=== PATIENT | female | born 1955 | race Caucasian/White ===

== ENCOUNTER 2021-04-14 11:31 | Outpatient (CLI) | payer MEDICARE, SELFPAY ==
[2021-04-14 12:20] LABS: Anion Gap 9 mmol/L (8-16); Aspartate Amino Transferase 62 U/L (14-36); Blood Urea Nitrogen 16 mg/dL (7-17); Calcium 10.3 mg/dL (8.4-10.2); Carbon Dioxide 27 mmol/L (22-30); Chloride 104 mmol/L (98-107); Cholesterol 250 mg/dL (0-200); Estimated Glomerular Filt Rate > 60; Glucose 111 mg/dL (65-105); HDL Direct 95 mg/dL; Potassium 5.1 mmol/L (3.4-5.0); Sodium 140 mmol/L (137-145); Triglycerides 148 mg/dL (<150)
[2021-04-14 12:31] LABS: LDL Cholesterol Direct 99 mg/dL
[2021-04-14 14:40] LABS: Hemoglobin A1C 5.6 % (<5.7)
== END 2021-04-14 11:32 | disposition home or self-care (01) ==
PROVIDERS: PCP Family Medicine; Visit Provider Family Medicine
DX: R73.03 Prediabetes (principal); E78.2 Mixed hyperlipidemia; I10 Essential (primary) hypertension
CPT/HCPCS: 36415; 80048; 80061; 83036; 84450

== ENCOUNTER 2022-08-03 09:43 | Outpatient (CLI) | payer MEDICARE, SELFPAY ==
--- NOTE | ~2022-08-03 | MR_ITS ---
EXAMINATION: MR foot LT wo con DATE: 08/03/2022 10:31 INDICATION: Ulcer at the left great toe. Left foot osteomyelitis. TECHNIQUE: Magnetic resonance imaging (MRI) of the left foot was performed without intravenous contra st. COMPARISON: Left foot radiographs 11/24/2008 FINDINGS: Bone alignment is normal. No acute fracture. 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 There is mild osteoarthritis of first metatarsophalangeal joint and some of the interphalangeal joints. There is an ulcer plantar to head of first metatarsal. There is increased T2 -weighted signal intensity in the adjacent soft tissues extending to the bone. There is bone marrow e deb in the lateral sesamoid with erosions, consistent with osteomyelitis. There is severe fatty atro phy of the musculature. Lisfranc ligament is intact. IMPRESSION: 1. Cellulitis plantar to head of first metatarsal with osteomyelitis involving the lateral great toe sesamoid. Reviewed, dictated and finalized at location A.
== END 2022-08-03 09:44 | disposition home or self-care (01) ==
PROVIDERS: PCP Family Medicine
DX: M86.9 Osteomyelitis, unspecified (principal); L03.116 Cellulitis of left lower limb
CPT/HCPCS: 73718

== ENCOUNTER 2022-08-16 09:25 | Outpatient (CLI) | payer MEDICARE, SELFPAY ==
[2022-08-16 11:05] LABS: Anion Gap 12 mmol/L (8-16); Aspartate Amino Transferase 39 U/L (14-36); Blood Urea Nitrogen 14 mg/dL (7-17); Calcium 9.8 mg/dL (8.4-10.2); Carbon Dioxide 22 mmol/L (22-30); Chloride 102 mmol/L (98-107); Cholesterol 165 mg/dL (0-200); Estimated Glomerular Filt Rate > 60; Glucose 104 mg/dL (65-110); HDL Direct 67 mg/dL; Potassium 3.6 mmol/L (3.4-5.0); Sodium 136 mmol/L (137-145); Triglycerides 110 mg/dL (<150)
[2022-08-16 11:17] LABS: LDL Cholesterol Direct 53 mg/dL
[2022-08-16 12:30] LABS: Hemoglobin A1C 5.7 % (<5.7)
== END 2022-08-16 09:26 | disposition home or self-care (01) ==
LOC: ANHLAB 09:31
PROVIDERS: PCP Family Medicine; Visit Provider Family Medicine
DX: I10 Essential (primary) hypertension (principal); E78.2 Mixed hyperlipidemia; R73.03 Prediabetes
CPT/HCPCS: 36415; 80048; 80061; 83036; 84450

== ENCOUNTER 2022-12-22 09:12 | Outpatient (CLI) | payer MEDICARE, SELFPAY ==
[2022-12-22 10:43] LABS: Anion Gap 5 mmol/L (8-16); Blood Urea Nitrogen 15 mg/dL (7-17); Calcium 9.6 mg/dL (8.4-10.2); Carbon Dioxide 30 mmol/L (22-30); Chloride 98 mmol/L (98-107); Estimated Glomerular Filt Rate > 60; Glucose 104 mg/dL (65-110); Potassium 3.9 mmol/L (3.4-5.0); Sodium 133 mmol/L (137-145)
== END 2022-12-22 09:13 | disposition home or self-care (01) ==
LOC: ANHLAB 09:16
PROVIDERS: PCP Emergency Medicine; Visit Provider Emergency Medicine
DX: Z01.818 Encounter for other preprocedural examination (principal)
CPT/HCPCS: 36415; 80048

== ENCOUNTER 2025-04-23 14:45 | Outpatient (CLI) | payer MEDICARE, SELFPAY ==
[2025-04-23 15:23] LABS: Basophils Percent Auto 0.4 % (0.2-1.2); Eosinophils Absolute Auto 0.2 K/mm3 (0-0.3); Eosinophils Percent Auto 2.5 % (0-4.4); Hematocrit 36.6 % (37.0-47.0); Hemoglobin 12.5 g/dL (12.0-15.0); Immature Granulocyte Absolute 0.02 K/mm3 (0.00-0.031); Immature Granulocyte Percent A 0.3 % (0-0.5); Lymphocytes Absolute Auto 2.32 K/mm3 (0.9-3.2); Lymphocytes Percent Auto 34.7 % (18.3-44.2); Mean Corpuscular HGB Conc 34.2 g/dl (32-36); Mean Corpuscular Volume 90.8 fl (80-100); Mean Platelet Volume 9.7 fl (7.4-10.4); Monocytes Absolute Auto 0.6 K/mm3 (0.1-0.6); Monocytes Percent Auto 8.8 % (2.6-8.5); Neutrophils Absolute Auto 3.6 K/mm3 (1.3-6.7); Neutrophils Percent Auto 53.3 % (45.5-73.1); Platelet Count Result 265 k/mm3 (150-375); Red Blood Count 4.03 M/mm3 (4.2-5.4); White Blood Count 6.7 K/mm3 (4.5-10.0)
[2025-04-23 15:36] LABS: Alanine Aminotransferase 30 U/L (6-35); Albumin Level 4.3 g/dL (3.5-5.1); Alkaline Phosphatase 75 U/L (38-126); Anion Gap 7 mmol/L (4-12); Aspartate Amino Transferase 31 U/L (14-36); Bilirubin,Total 0.5 mg/dL (0.2-1.3); Blood Urea Nitrogen 20 mg/dL (7-17); Calcium 9.7 mg/dL (8.4-10.2); Carbon Dioxide 26 mmol/L (22-30); Chloride 101 mmol/L (98-107); Cholesterol 155 mg/dL (0-200); Estimated Glomerular Filt Rate > 60; Glucose 102 mg/dL (65-110); HDL Direct 75 mg/dL; Potassium 3.7 mmol/L (3.4-5.0); Sodium 134 mmol/L (137-145); Triglycerides 119 mg/dL (<150)
[2025-04-23 15:47] LABS: LDL Cholesterol Direct 48 mg/dL
--- OUTSIDE RECORDS SUMMARY | 2025-04-23 17:25 | XMS_ITS | Continuity of Care Document ---
Author Organization [facility] [place] [address] [place] [address] [place] [address] Phone Care Team Providers Care Lead Man Over [employer] Name Role Phone Reynaga OD, Patric Unavailable Unavailable Procedures Procedure Date Eye Exam & Treatment Refraction Office/outpatient Visit, Est Office/outpatient Visit, Est Eye Exam, New Patient Advance Directives Directive Yes / No Effective Date File Name No Information Encounters Encounter Description Practice Location Reason(s) For Visit Diagnoses Date Provider Providers Copied on Encounter [facility], [address] [place] [address] [address], [place], [place], [id number], [place] tel:[phone] [facility] No Information 2-200 8 Reynaga OD Patric. [address] , [address], [place], [address], [place]. tel:[phone] Office/outpat ient Visit, [facility] [place], [address] [place] [address] [address], [place], [place], [id number], [place] tel:[phone] [facility] No Information 1-200 7 Reynaga OD Patric. [address] , [address], [place], [address], [place]. tel:[phone] Office/outpat ient Visit, [facility] [place], [address] [place] [address] [address], [place], [place], [id number], [place] tel:[phone] [facility] No Information Shankar-1 4-200 7 Reynaga OD Patric. [address] , [address], [place], [address], [place]. tel:[phone] [facility], [address], [place], [place], [id number], [place] tel:[phone] [facility] No Information 7 Doisy Edward. [address] , [address], [place], [address], [place]. tel:[phone] Family History Family Member Type Diagnosis Age At Onset No Information Payers Payer name Insurance type Covered libertarian ID Authorroxannedoris delphinebernard(s) [facility] Care [id number] Social History Type Description Quantity Date Captured Comments Sex Female Smoking Status No Information Chief Complaint And Reason For Visit No Information Reason For Referral Reason For Referral No Information History Of Present Illness Encounter Date Complaint History Of Prese nt Illness No Information Functional Status Date Functional Assessmen t No Information Instructions Date Instruction Additional Infor mation No Information Assessments Type Assessment Date No Information Patient Care Teams Name Effective Dates (start - stop) Status Members No Information
--- OUTSIDE RECORDS SUMMARY | 2025-04-23 17:25 | XMS_ITS | Data Portability ---
Author Organization [facility] ROSAAmanda Address [address] [facility] [place] [address] Assessment No assessment recorded. Plan of Treatment Reminders Order Date Submit Date Provider Last Modified By Organization Details Last Modified Time Details Appointments MEDICARE WELLNESS VISIT 2024 02:30P M DAO Whyte Not available Not available Not available Lab lipid panel, serum 2023 024 [employer] [facility], [address], [place], [address], 11/05/2024 22:16:13 HbA1c (hemoglob in A1c), blood 2023 024 DANIEL In-Office Order, Internal Use Only DO Not Attach Compendium DO Not Attach Compendium, Do Not Delete/merge, [id number] 11/04/2024 16:51:48 CBC w/ auto diff 2023 024 [employer] [facility], [address], [place], [address], 11/05/2024 22:16:16 CMP, serum or plasma 2023 024 [employer] [facility], [address], [address], [place], [address], 11/05/2024 22:16:14 hemoglobi n A1c, QN, blood 2023 024 [facility], [address], [address], [place], [address], 05/27/2024 14:11:10 CMP, serum or plasma 2023 024 [facility], [address], [address], [place], [address], 05/08/2024 02:32:00 magnesium , serum or plasma 2023 024 [facility], [address], [address], [place], [address], 05/08/2024 02:32:00 vitamin D, 25-hydrox y, total, serum 2023 024 [facility], [address], [address], [place], [address], 05/08/2024 02:32:01 hemoglobi n A1c, QN, blood 2022 023 [facility], [address], [address], [place], [address], 11/09/2023 13:48:55 CMP, serum or plasma 2022 023 [facility], [address], [address], [place], [address], 11/10/2023 12:32:11 CBC w/ auto diff 2022 023 [facility], [address], [address], [place], [address], 11/10/2023 12:32:11 magnesium , serum or plasma 2022 023 [facility], [address], [address], [place], [address], 11/10/2023 12:32:10 lipid panel, serum 2022 023 [facility], [address], [address], [place], [address], 11/10/2023 12:32:09 vitamin D, 25-hydrox y, total, serum 2022 023 [facility], [address], [address], [place], [address], 11/10/2023 12:32:12 CMP, serum or plasma 2022 023 [facility] (Lab), [address] [facility] [address] [place] [address], [phone], 11/16/2023 16:54:20 CBC w/ auto diff 2022 023 [facility] (Lab), [address] [facility] [address] [place] [address], [id number], 11/16/2023 16:54:20 magnesium , serum or plasma 2022 023 [facility] (Lab), [address] [facility] [address] [place] [address], [id number], 11/16/2023 16:54:20 lipid panel, serum 2022 023 [facility] (Lab), [address] [facility] [address] [place] [address], [phone], 11/16/2023 16:54:20 HbA1c (hemoglob in A1c), blood 2022 023 [facility] (Lab), [address] [facility] [address] [place] [address], [id number], 11/10/2023 12:32:13 BMP, serum or plasma 2022 023 [facility] (Lab), [address] [facility] [address] [place] [address], [phone], 12/22/2022 12:40:47 Referral None recorded. Procedures None recorded. Surgeries None recorded. Imaging DEXA 2022 023 l[facility], [address], [place], [address], 07/10/2023 10:22:41 Medication Orders triamcino lone acetonide 0.1 % topical ointment 2023 025 [facility]armacy [facility]2510, [address] [place], [address], 01/01/2025 16:26:36 prednison e 20 mg tablet [address]/Pharmacy #2510, [address] [place], [address], 01/13/2024 08:26:30 azithromy donna 500 mg tablet [address]/Pharmacy #2510, [address] [place], [address], 01/13/2024 08:26:18 albuterol sulfate HFA 90 mcg/actua tion aerosol inhaler [facility] [address] [place], [address], 05/06/2024 11:59:16 losartan 50 mg-hydroc hlorothia zide 12.5 mg tablet 2022 023 [facility]/Pharmacy #2510, [address] [place], [address], 11/09/2023 13:53:31 Patient TargetsNo targets recorded. Patient Instructions Encounter Date Encounter Id Patient Instructions Last Modified By Organization Details Last Modified Time 12/20/2022 [id number] Parvin, - Thank y goldy for your visit - Continue your current medications - I will complete your preoperative form once I have your lab and electrocardiogram results, and forward it to your surgeon - You will be called with any concerning findings - Return to clinic as scheduled, or as needed - Call with any concerns [email or web address] Not available 12/20/2022 15:22:50 04/17/2023 [id number] back care and preventing injuries: care instructions [email or web address] Not available 04/17/2023 12:08:29 sleep apnea: car e instructions [email or web address] Not available 04/17/2023 12:08:28 high blood press ure: care instructions [id number] Not available 04/17/2023 12:08:29 learning about h igh blood pressure [email or web address] Not available 04/17/2023 12:08:28 body mass index: care instructions [id number] Not available 04/17/2023 12:15:13 learning about healthy weight [id number] Not available 04/17/2023 12:15:13 Parvin, - Thank luis goldy for your visit - Continue your current medications - Have your labwork done at ~ 1 week before your next office visit - Return to clinic in 6 months, AND as needed. - Call with any concerns Immunization recommendations: Preventive immunization against tetanus, diphtheria and pertussis is recommended every 10 years, or after 7 years if sustaining a tetanus-prone wound. Preventive immunization against shingles (herpes zoster) is recommended to reduce risk of occurrence, possible chronic pain, and transmission. Currently this is a two shot regimen. All individuals age 65 and up are encouraged to obtain vaccination against Pneumococcal pneumonia. Currently, this is a single immunization, [id number], if you have never previously been immunized. Yearly influenza immunization is recommended, and typically available beginning in mid-July. I highly encourage all who are able to complete an initial immunization series against COVID19, along with boosters as indicated by age or medical history. Your goal hemoglobin A1c is under 7.0 to prevent long-term diabetes complications (eye , kidney, and nerve damage). Your goal sugars are in the 90-130 range Exercise recommendations: It is recommended that you do daily aerobic (walking, bicycling, swimming) and resistance exercises (light weight lifting, resistance band stretching) for at least 30 minutes, most days of the week. If you cannot walk, chair exercises for 10-15 minutes a day would help tremendously. As little as 15-20 minutes exercise, in one or two sessions a day, is still very helpful to manage/improve your weight and diabetes control. Diet recommendations: Eat small portion meals, trying not to consume more than 1800 calories a day. Try to eat not more than 2 servings of carbs (starches) with your meals. Avoid soft drinks, including regular sodas, fruit juices, and sweetened tea. Drink water instead. Eat plenty of green and leafy vegetables, including salads. Medications: Take your medications regularly. Setting phone alarms can help. Keep your medication on the kitchen dinner table, by the bedside table or by the sink where they are visible to you. [email or web address] Not available 04/17/2023 12:08:25 11/09/2023 [id number] back care and preventing injuries: care instructions [id number] Not available 11/09/2023 13:48:21 upper respirator y infection (cold): care instructions [email or web address] Not available 11/09/2023 13:53:26 sleep apnea: car e instructions [id number] Not available 11/09/2023 13:48:20 learning about h igh blood pressure [email or web address] Not available 11/09/2023 13:48:20 body mass index: care instructions [email or web address] Not available 11/09/2023 13:48:20 learning about healthy weight [id number] Not available 11/09/2023 13:48:20 Parvin, - Thank y goldy for your visit - Use medications as directed. - Drink plenty of fluids - Consider using plain Robitussin, plain Mucinex, or Coricidin HBP for congestion/sinus pressure/ear pain - Please call if not improving in 10-14 days. - Continue your current medications - Your results will be available on the portal with any recommendations, or we will call you with them - Return to clinic in 6 months, AND as needed. - Call with any concerns Immunization recommendations: Preventive immunization against tetanus, diphtheria and pertussis is recommended every 10 years, or after 7 years if sustaining a tetanus-prone wound. Preventive immunization against shingles (herpes zoster) is recommended to reduce risk of occurrence, possible chronic pain, and transmission. Currently this is a two shot regimen. All individuals age 65 and up are encouraged to obtain vaccination against Pneumococcal pneumonia. Currently, this is a single immunization, [id number], if you have never previously been immunized. Yearly influenza immunization is recommended, and typically available beginning in mid-July. I highly encourage all who are able to complete an initial immunization series against COVID19, along with boosters as indicated by age or medical history. Consider obtaining an RSV immunization. For more information: https://www.cdc.gov/v accines/vpd/rsv/index .html Exercise recommendations: It is recommended that you do daily aerobic (walking, bicycling, swimming) and resistance exercises (light weight lifting, resistance band stretching) for at least 30 minutes, most days of the week. If you cannot walk, chair exercises for 10-15 minutes a day would help tremendously. As little as 15-20 minutes exercise, in one or two sessions a day, is still very helpful to manage/improve your weight and overall health Diet recommendations: Eat small portion meals, trying not to consume more than 1800 calories a day. Try to eat not more than 2 servings of carbs (starches) with your meals. Avoid soft drinks, including regular sodas, fruit juices, and sweetened tea. Drink water instead. Eat plenty of green and leafy vegetables, including salads. [email or web address] Not available 11/09/2023 14:03:33 05/06/2024 [id number] back care and preventing injuries: care instructions [id number] Not available 05/06/2024 13:12:40 sleep apnea: car e instructions [id number] Not available 05/06/2024 13:12:40 learning about h igh blood pressure [id number] Not available 05/06/2024 13:12:40 body mass index: care instructions [id number] Not available 05/06/2024 13:12:40 learning about healthy weight [id number] Not available 05/06/2024 13:12:40 Parvin, - Thank luis winslow for your visit - Continue your current medications - Your results will be available on the portal with any recommendations, or we will call you with them - Return to clinic in 6 months, AND as needed. - Call with any concerns Immunization recommendations: - All individuals age 65 and up are encouraged to obtain vaccination against PNEUMOCOCCAL pneumonia. Currently, this is a single immunization, [id number], if you have never previously been immunized - Yearly influenza immunization is recommended, and typically available beginning in mid-July - I highly encourage all who are able to complete an initial immunization series against COVID19, along with boosters as indicated by age or medical history Exercise recommendations: - It is recommended that you do daily aerobic (walking, bicycling, swimming) and resistance exercises (light weight lifting, resistance band stretching) for at least 30 minutes, most days of the week. - If you cannot walk, chair exercises for 10-15 minutes a day would help tremendously. - As little as 15-20 minutes exercise, in one or two sessions a day, is still very helpful to manage/improve your weight and overall health Diet recommendations: - Eat small portion meals, trying not to consume more than 1800 calories a day. - Try to eat not more than 2 servings of carbs (starches) with your meals. - Avoid soft drinks, including regular sodas, fruit juices, and sweetened tea. Drink water instead. - Eat plenty of green and leafy vegetables, including salads. [email or web address] Not available 05/06/2024 13:16:58 11/04/2024 [id number] A healthy lifest yle: care instructions [email or web address] Not available 11/04/2024 15:27:49 Reason for Referral None Reported. Results Created Date Observation Date Name Description Value Unit Range Abnormal Flag Note LastModifiedBy Organization Detail LastModifiedTime 11/09/2011/10/2023 LIPID PANEL , STAND RICCARDO cholesterol, total 236 mg/dL <200 high Not Available [employer] [facility] [address] [place], [address], 11/10/2023 12:32:09 11/09/20 23 11/10/2023 LIPID PANEL , STAND RICCARDO HDL cholesterol 77 mg/dL > or = 50 normal Not Available [facility] [address] [place] [address], [address], 11/10/2023 12:32:09 11/09/20 23 11/10/2023 LIPID PANEL , STAND RICCARDO triglyceride s 184 mg/dL <150 high Not Available [address] [place], [address], 11/10/2023 12:32:09 11/09/20 23 11/10/2023 LIPID PANEL , STAND RICCARDO LDL-choleste rol 128 mg/dL _(tiny c) high Refer ence range : <100 Babita able range <100 mg/dL for prima ry preve ntion ; <70 mg/dL for patie nts with CHD or diabe tic patie nts with > or = 2 CHD risk facto rs. LDL-C is now calcu lated using the Jaja n-Hop kins calcu anum n, which is a valid ated novel josafat barajsa than the Fried anastasiya equat ion in the estim ation of LDL-C . Jaja arriaga SS et al. CECE. 2013; 310(1 9): 2061- 2068 (http ://ed ucati on.Jeevan trujillo Satmetrixs. com/f aq/FA Q164) Not Available [place] [address] [place], [address], 11/10/2023 12:32:09 11/09/20 23 11/10/2023 LIPID PANEL , STAND RICCARDO chol/HDLC ratio 3.1 (calc ) <5.0 normal Not Available [facility] [address] [place] [address], [address], 11/10/2023 12:32:09 11/09/20 23 11/10/2023 LIPID PANEL , STAND RICCARDO non HDL cholesterol 159 mg/dL _(tiny c) <130 high For patie nts with diabe amanda plus 1 major ASCVD risk facto r, treat ing to a non-H DL-C goal of <100 mg/dL (LDL- C of <70 mg/dL ) is dina zee optio n. Not Available [place] [address] [place], [address], 11/10/2023 12:32:09 11/09/20 23 11/10/2023 [facility]NE [facility] magnesium 1.6 mg/dL 1.5-2. 5 normal Not Available [place] [address] [place], [address], 11/10/2023 12:32:10 11/09/20 23 11/10/2023 COMPR EHENS KAREN METAB OLIC PANEL glucose 98 mg/dL 65-99 normal Fasti ng refer ence inter arjun Not Available [place] [address] , [place], [address], 11/10/2023 12:32:11 11/09/20 23 11/10/2023 COMPR EHENS KAREN METAB OLIC PANEL urea nitrogen (BUN) 14 mg/dL 7-25 normal Not Available [place] [address] [place], [address], 11/10/2023 12:32:11 11/09/20 23 11/10/2023 COMPR EHENS KAREN METAB OLIC PANEL creatinine 0.72 mg/dL 0.50-1 .05 normal Not Available [place] [address] [place], [address], 11/10/2023 12:32:11 11/09/20 23 11/10/2023 COMPR EHENS KAREN METAB OLIC PANEL eGFR 92 mL/mi n/1.7 3m2 > or = 60 normal Not Available [place] [address] [place], [address], 11/10/2023 12:32:11 11/09/20 23 11/10/2023 COMPR EHENS KAREN METAB OLIC PANEL BUN/creatini ne ratio SEE NOTE: (calc ) 6-22 Not Repor eddie: BUN and Creat inine are withi n refer ence range . Not Available [place] [address] [place], [address], 11/10/2023 12:32:11 11/09/20 23 11/10/2023 COMPR EHENS KAREN METAB OLIC PANEL sodium 139 mmol/ L 135-14 6 normal Not Available [place] [address] [place], [address], 11/10/2023 12:32:11 11/09/20 23 11/10/2023 COMPR EHENS KAREN METAB OLIC PANEL potassium 4.0 mmol/ L 3.5-5. 3 normal Not Available [place] [address] [place], [address], 11/10/2023 12:32:11 11/09/20 23 11/10/2023 COMPR EHENS KAREN METAB OLIC PANEL chloride 105 mmol/ L 98-110 normal Not Available [address], [address], 11/10/2023 12:32:11 11/09/20 23 11/10/2023 COMPR EHENS KAREN METAB OLIC PANEL carbon dioxide 24 mmol/ L 20-32 normal Not Available [place] [address] [place], [address], 11/10/2023 12:32:11 11/09/20 23 11/10/2023 COMPR EHENS KAREN METAB OLIC PANEL calcium 9.7 mg/dL 8.6-10 .4 normal Not Available [place] [address] [place], [address], 11/10/2023 12:32:11 11/09/20 23 11/10/2023 COMPR EHENS KAREN METAB OLIC PANEL protein, total 7.3 g/dL 6.1-8. 1 normal Not Available [address], [address], 11/10/2023 12:32:11 11/09/20 23 11/10/2023 COMPR EHENS KAREN METAB OLIC PANEL albumin 4.1 g/dL 3.6-5. 1 normal Not Available [address], [address], 11/10/2023 12:32:11 11/09/20 23 11/10/2023 COMPR EHENS KAREN METAB OLIC PANEL globulin 3.2 g/dL_ (calc ) 1.9-3. 7 normal Not Available [address], [address], 11/10/2023 12:32:11 11/09/20 23 11/10/2023 COMPR EHENS KAREN METAB OLIC PANEL albumin/glob ulin ratio 1.3 (calc ) 1.0-2. 5 normal Not Available [address], [address], 11/10/2023 12:32:11 11/09/20 23 11/10/2023 COMPR EHENS KAREN METAB OLIC PANEL bilirubin, total 0.4 mg/dL 0.2-1. 2 normal Not Available [address], [address], 11/10/2023 12:32:11 11/09/20 23 11/10/2023 COMPR EHENS KAREN METAB OLIC PANEL alkaline phosphatase 84 U/L 37-153 normal Not Available [facility] [employer] [address], [address], 11/10/2023 12:32:11 11/09/20 23 11/10/2023 COMPR EHENS KAREN METAB OLIC PANEL AST 89 U/L 10-35 high Not Available [address], [address], 11/10/2023 12:32:11 11/09/20 23 11/10/2023 COMPR EHENS KAREN METAB OLIC PANEL ALT 70 U/L 6-29 high Not Available [address], [address], 11/10/2023 12:32:11 11/09/20 23 11/10/2023 CBC (INCL UDES DIFF/ PLT) white blood cell count 6.6 thous and/u L 3.8-10 .8 normal Not Available [address], [address], 11/10/2023 12:32:11 11/09/20 23 11/10/2023 CBC (INCL UDES DIFF/ PLT) red blood cell count 4.10 konrad on/uL 3.80-5 .10 normal Not Available [address], [address], 11/10/2023 12:32:11 11/09/20 23 11/10/2023 CBC (INCL UDES DIFF/ PLT) hemoglobin 13.3 g/dL 11.7-1 5.5 normal Not Available [address], [address], 11/10/2023 12:32:11 11/09/20 23 11/10/2023 CBC (INCL UDES DIFF/ PLT) hematocrit 37.9 % 35.0-4 5.0 normal Not Available [address], [address], 11/10/2023 12:32:11 11/09/20 23 11/10/2023 CBC (INCL UDES DIFF/ PLT) MCV 92.4 fL 80.0-1 00.0 normal Not Available [address], [address], 11/10/2023 12:32:11 11/09/20 23 11/10/2023 CBC (INCL UDES DIFF/ PLT) MCH 32.4 pg 27.0-3 3.0 normal Not Available [address], [address], 11/10/2023 12:32:11 11/09/20 23 11/10/2023 CBC (INCL UDES DIFF/ PLT) MCHC 35.1 g/dL 32.0-3 6.0 normal Not Available [address], [address], 11/10/2023 12:32:11 11/09/20 23 11/10/2023 CBC (INCL UDES DIFF/ PLT) RDW 12.6 % 11.0-1 5.0 normal Not Available [address], [address], 11/10/2023 12:32:11 11/09/20 23 11/10/2023 CBC (INCL UDES DIFF/ PLT) platelet count 253 thous and/u L 140-40 0 normal Not Available [address], [address], 11/10/2023 12:32:11 11/09/20 23 11/10/2023 CBC (INCL UDES DIFF/ PLT) MPV 10.7 fL 7.5-12 .5 normal Not Available [address], [address], 11/10/2023 12:32:11 11/09/20 23 11/10/2023 CBC (INCL UDES DIFF/ PLT) absolute neutrophils 3742 cells /uL 1500-7 800 normal Not Available [address], [address], 11/10/2023 12:32:11 11/09/20 23 11/10/2023 CBC (INCL UDES DIFF/ PLT) absolute lymphocytes 2000 cells /uL 850-39 00 normal Not Available [address] [place], [address], 11/10/2023 12:32:11 11/09/20 23 11/10/2023 CBC (INCL UDES DIFF/ PLT) absolute monocytes 594 cells /uL 200-95 0 normal Not Available [facility] [address], [address], 11/10/2023 12:32:11 11/09/20 23 11/10/2023 CBC (INCL UDES DIFF/ PLT) absolute eosinophils 211 cells /uL 15-500 normal Not Available [facility] [address], [address], 11/10/2023 12:32:11 11/09/2011/10/2023 CBC (INCL UDES DIFF/ PLT) absolute basophils 53 cells /uL 0-200 normal Not Available [address], [address], 11/10/2023 12:32:11 11/09/20 23 11/10/2023 CBC (INCL UDES DIFF/ PLT) neutrophils 56.7 % normal Not Available [address], [address], 11/10/2023 12:32:11 11/09/20 23 11/10/2023 CBC (INCL UDES DIFF/ PLT) lymphocytes 30.3 % normal Not Available [address], [address], 11/10/2023 12:32:11 11/09/20 23 11/10/2023 CBC (INCL UDES DIFF/ PLT) monocytes 9.0 % normal Not Available [address], [address], 11/10/2023 12:32:11 11/09/20 23 11/10/2023 CBC (INCL UDES DIFF/ PLT) eosinophils 3.2 % normal Not Available [address], [address], 11/10/2023 12:32:11 11/09/20 23 11/10/2023 CBC (INCL UDES DIFF/ PLT) basophils 0.8 % normal Not Available [address], [address], 11/10/2023 12:32:11 11/09/20 23 11/10/2023 VITAM IN D,25- OH,TO NIKITA,I A vitamin D,25-oh,tota l,ia 6 NG/mL 30-100 low Vitam in D Statu s 25-OH Vitam in D: Defic iency : <20 ng/mL Insuf ficie ncy: 20 - 29 ng/mL Optim al: > or = 30 ng/mL For 25-OH Vitam in D testi ng on patie nts on D2-childress pplem entat ion and patie nts for whom quant itati on of D2 and D3 fract ions is requi red, the [facility] e[facility](TM ) 25-OH VIT D, (D2,D 3), LC/MS /MS is recom cristino d: order code 36912 (catherine ents >2yrs ). See Note 1 Note 1 For addit ional infor marco mir refer to http: //luana [place] stDia gnost ics.c om/fa q/FAQ 199 (This link is being provi ded for infor raven coyne/ anderson barrera purpo ses only. ) Not Available [address], [address], 11/10/2023 12:32:12 11/09/20 23 11/10/2023 HEMOG LOBIN A1C hemoglobin A1C 6.5 %_of_ total _HGB <5.7 high For someo ne witho ut known diabe amanda, a hemog lobin A1c value of 6.5% or great er indic ates that they may have diabe amanda and this shoul d be confi rmed with a follo w-up test. For someo ne with known diabe amanda, a value <7% indic ates that their diabe amanda is well contr olled and a value great er than or equal to 7% indic ates subop timal contr ol. A1c targe ts shoul d be indiv idual ized based on durat ion of diabe amanda, age, comor bid condi tions , and other consi derat ions. Curre ntly, no conse nsus exist s gilda cuba use of hemog lobin A1c for diagn osis of diabe amanda for child kadie. Not Available [facility] [address], [address], 11/10/2023 12:32:13 05/06/2005/08/2024 MAGNE SIUM magnesium 1.5 mg/dL 1.5-2. 5 normal Not Available [facility] [address], [address], 05/08/2024 02:31:59 05/06/20 24 05/08/2024 COMPR EHENS KAREN METAB OLIC PANEL glucose 245 mg/dL 65-99 high Fasti ng refer ence inter arjun For someo ne witho ut known diabe amanda, a gluco se value >125 mg/dL indic ates that they may have diabe amanda and this shoul d be confi rmed with a follo w-up test. Not Available [facility] [address] [place], [address], 05/08/2024 02:32:00 05/06/20 24 05/08/2024 COMPR EHENS KAREN METAB OLIC PANEL urea nitrogen (BUN) 12 mg/dL 7-25 normal Not Available [facility] [address] [place], [address], 05/08/2024 02:32:00 05/06/20 24 05/08/2024 COMPR EHENS KAREN METAB OLIC PANEL creatinine 0.65 mg/dL 0.50-1 .05 normal Not Available [facility] [address] [place], [address], 05/08/2024 02:32:00 05/06/20 24 05/08/2024 COMPR EHENS KAREN METAB OLIC PANEL eGFR 96 mL/mi n/1.7 3m2 > or = 60 normal Not Available [address], [address], 05/08/2024 02:32:00 05/06/20 24 05/08/2024 COMPR EHENS KAREN METAB OLIC PANEL BUN/creatini ne ratio SEE NOTE: (calc ) 6-22 Not Repor eddie: BUN and Creat inine are withi n refer ence range . Not Available [address], [address], 05/08/2024 02:32:00 05/06/20 24 05/08/2024 COMPR EHENS KAREN METAB OLIC PANEL sodium 134 mmol/ L 135-14 6 low Not Available [address], [address], 05/08/2024 02:32:00 05/06/20 24 05/08/2024 COMPR EHENS KAREN METAB OLIC PANEL potassium 4.0 mmol/ L 3.5-5. 3 normal Not Available [address], [address], 05/08/2024 02:32:00 05/06/20 24 05/08/2024 COMPR EHENS KAREN METAB OLIC PANEL chloride 103 mmol/ L 98-110 normal Not Available [address], [address], 05/08/2024 02:32:00 05/06/20 24 05/08/2024 COMPR EHENS KAREN METAB OLIC PANEL carbon dioxide 18 mmol/ L 20-32 low Not Available [address], [address], 05/08/2024 02:32:00 05/06/20 24 05/08/2024 COMPR EHENS KAREN METAB OLIC PANEL calcium 10.0 mg/dL 8.6-10 .4 normal Not Available [address], [address], 05/08/2024 02:32:00 05/06/20 24 05/08/2024 COMPR EHENS KAREN METAB OLIC PANEL protein, total 7.5 g/dL 6.1-8. 1 normal Not Available [address], [address], 05/08/2024 02:32:00 05/06/20 24 05/08/2024 COMPR EHENS KAREN METAB OLIC PANEL albumin 4.1 g/dL 3.6-5. 1 normal Not Available [address], [address], 05/08/2024 02:32:00 05/06/20 24 05/08/2024 COMPR EHENS KAREN METAB OLIC PANEL globulin 3.4 g/dL_ (calc ) 1.9-3. 7 normal Not Available [address], [address], 05/08/2024 02:32:00 05/06/20 24 05/08/2024 COMPR EHENS KAREN METAB OLIC PANEL albumin/glob ulin ratio 1.2 (calc ) 1.0-2. 5 normal Not Available [address], [address], 05/08/2024 02:32:00 05/06/20 24 05/08/2024 COMPR EHENS KAREN METAB OLIC PANEL bilirubin, total 0.4 mg/dL 0.2-1. 2 normal Not Available [address], [address], 05/08/2024 02:32:00 05/06/20 24 05/08/2024 COMPR EHENS KAREN METAB OLIC PANEL alkaline phosphatase 97 U/L 37-153 normal Not Available [facility] [address], [place], [address], 05/08/2024 02:32:00 05/06/20 24 05/08/2024 COMPR EHENS KAREN METAB OLIC PANEL AST 89 U/L 10-35 high Not Available [facility] [address] [address] [place], [address], 05/08/2024 02:32:00 05/06/20 24 05/08/2024 COMPR EHENS KAREN METAB OLIC PANEL ALT 102 U/L 6-29 high Not Available [facility] [address] [address] [place], [address], 05/08/2024 02:32:00 05/06/20 24 05/08/2024 VITAM IN D,25- OH,TO NIKITA,I A vitamin D,25-oh,tota l,ia 39 NG/mL 30-100 normal Vitam in D Statu s 25-OH Vitam in D: Defic iency : <20 ng/mL Insuf ficie ncy: 20 - 29 ng/mL Optim al: > or = 30 ng/mL For 25-OH Vitam in D testi ng on patie nts on D2-childress pplem entat ion and patie nts for whom quant itati on of D2 and D3 fract ions is requi red, the [facility] eD(TM ) 25-OH VIT D, (D2,D 3), LC/MS /MS is recom cristino d: order code 36080 (catherine ents >2yrs ). See Note 1 Note 1 For addit ional infor marco mir refer to http: //luana arriaga.Lenny stDia gnost ics.c om/fa q/FAQ 199 (This link is being provi ded for infor raven coyne/ anderson barrera purpo ses only. ) Not Available [facility] [address], [place], [address], 05/08/2024 02:32:01 05/06/20 24 05/08/2024 HEMOG LOBIN A1C hemoglobin A1C 7.1 %_of_ total _HGB <5.7 high For someo ne witho ut known diabe amanda, a hemog lobin A1c value of 6.5% or great er indic ates that they may have diabe amanda and this shoul d be confi rmed with a follo w-up test. For someo ne with known diabe amanda, a value <7% indic ates that their diabe amanda is well contr olled and a value great er than or equal to 7% indic ates subop timal contr ol. A1c targe ts shoul d be indiv idual ized based on durat ion of diabe amanda, age, comor bid condi tions , and other consi derat ions. Curre ntly, no conse nsus exist s regar ding use of hemog lobin A1c for diagn osis of diabe amanda for child kadie. This test was perfo rmed on the [employer] delma c503 platf orm. Effec tive , a castillo e in test platf orms from the [employer] [facility] [employer] t[facility] to the [facility] delma c503 may have shift ed HbA1c resul ts nisreen red to histo rical resul ts. Based on labor atory valid ation testi ng condu cted at [facility] , the [facility] platf orm relat karen to the [employer] platf orm had an avera ge incre ase in HbA1c value of < or = 0.3%. This diffe rence is withi n accep eddie varia bilit y estab lishe d by the Liz coyne [employer] hemog lobin Stand ardiz ation Progr am. Note that not all indiv idual s will have had a shift in their resul ts and direc t nisreen rison s betwe en histo rical and curre nt resul ts for testi ng condu cted on diffe rent platf orms is not recom cristino d. Not Available [employer] [facility] [address] [place], [address], 05/08/2024 02:32:02 11/04/20 24 11/05/2024 LIPID PANEL , STAND RICCARDO cholesterol, total 204 mg/dL <200 high Not Available [employer] [facility] [address] [place], [address], 11/05/2024 22:16:13 11/04/2011/05/2024 LIPID PANEL , STAND RICCARDO HDL cholesterol 84 mg/dL > or = 50 normal Not Available [facility] [address] [place], [address], 11/05/2024 22:16:13 11/04/20 24 11/05/2024 LIPID PANEL , STAND RICCARDO triglyceride s 92 mg/dL <150 normal Not Available [facility] [address] [place], [address], 11/05/2024 22:16:13 11/04/2011/05/2024 LIPID PANEL , STAND RICCARDO LDL-choleste rol 101 mg/dL _(tiny c) high Refer ence range : <100 Babita able range <100 mg/dL for prima ry preve ntion ; <70 mg/dL for patie nts with CHD or diabe tic patie nts with > or = 2 CHD risk facto rs. LDL-C is now calcu lated using the Jaja arriaga-Hop sherrie rowan n, which is a valid ated novel josafat hansen accur acy than the Fried anastasiya equat ion in the estim ation of LDL-C . Jaja arriaga SS et al. CECE. 2013; 310(1 9): 2061- 2068 (http ://ed ucati on.Qu Brittany trujillo tics. com/f aq/FA Q164) Not Available [facility] [address] [place], [address], 11/05/2024 22:16:13 11/04/2011/05/2024 LIPID PANEL , STAND RICCARDO chol/HDLC ratio 2.4 (calc ) <5.0 normal Not Available [facility] [address] [place], [address], 11/05/2024 22:16:13 11/04/20 24 11/05/2024 LIPID PANEL , STAND RICCARDO non HDL cholesterol 120 mg/dL _(tiny c) <130 normal For patie nts with diabe amanda plus 1 major ASCVD risk facto r, treat ing to a non-H DL-C goal of <100 mg/dL (LDL- C of <70 mg/dL ) is dina zee optio n. Not Available [address] [address] [place], [address], 11/05/2024 22:16:13 11/04/20 24 11/05/2024 COMPR EHENS KAREN METAB OLIC PANEL glucose 91 mg/dL 65-99 normal Fasti ng refer ence inter arjun Not Available [address] [address] [place], [address], 11/05/2024 22:16:14 11/04/20 24 11/05/2024 COMPR EHENS KAREN METAB OLIC PANEL urea nitrogen (BUN) 23 mg/dL 7-25 normal Not Available [address] [address] [place], [address], 11/05/2024 22:16:14 11/04/20 24 11/05/2024 COMPR EHENS KAREN METAB OLIC PANEL creatinine 0.90 mg/dL 0.50-1 .05 normal Not Available [address], [address], 11/05/2024 22:16:14 11/04/20 24 11/05/2024 COMPR EHENS KAREN METAB OLIC PANEL eGFR 70 mL/mi n/1.7 3m2 > or = 60 normal Not Available [address], [address], 11/05/2024 22:16:14 11/04/20 24 11/05/2024 COMPR EHENS KAREN METAB OLIC PANEL BUN/creatini ne ratio SEE NOTE: (calc ) 6-22 Not Repor eddie: BUN and Creat inine are withi n refer ence range . Not Available [facility] [address] [place], [address], 11/05/2024 22:16:14 11/04/20 24 11/05/2024 COMPR EHENS KAREN METAB OLIC PANEL sodium 136 mmol/ L 135-14 6 normal Not Available [address] [address] [place], [address], 11/05/2024 22:16:14 11/04/20 24 11/05/2024 COMPR EHENS KAREN METAB OLIC PANEL potassium 5.0 mmol/ L 3.5-5. 3 normal Not Available [facility] [address] [address] [place], [address], 11/05/2024 22:16:14 11/04/20 24 11/05/2024 COMPR EHENS KAREN METAB OLIC PANEL chloride 100 mmol/ L 98-110 normal Not Available [address] [address] [place], [address], 11/05/2024 22:16:14 11/04/20 24 11/05/2024 COMPR EHENS KAREN METAB OLIC PANEL carbon dioxide 26 mmol/ L 20-32 normal Not Available [address] [address] [place], [address], 11/05/2024 22:16:14 11/04/20 24 11/05/2024 COMPR EHENS KAREN METAB OLIC PANEL calcium 10.6 mg/dL 8.6-10 .4 high Not Available [address] [address] [place], [address], 11/05/2024 22:16:14 11/04/20 24 11/05/2024 COMPR EHENS KAREN METAB OLIC PANEL protein, total 7.9 g/dL 6.1-8. 1 normal Not Available [address] [address] [place], [address], 11/05/2024 22:16:14 11/04/20 11/05/2024 COMPR EHENS KAREN METAB OLIC PANEL albumin 4.6 g/dL 3.6-5. 1 normal Not Available [address], [address], 11/05/2024 22:16:14 11/04/20 24 11/05/2024 COMPR EHENS KAREN METAB OLIC PANEL globulin 3.3 g/dL_ (calc ) 1.9-3. 7 normal Not Available [address], [address], 11/05/2024 22:16:14 11/04/20 24 11/05/2024 COMPR EHENS KAREN METAB OLIC PANEL albumin/glob ulin ratio 1.4 (calc ) 1.0-2. 5 normal Not Available [address], [address], 11/05/2024 22:16:14 11/04/20 24 11/05/2024 COMPR EHENS KAREN METAB OLIC PANEL bilirubin, total 0.4 mg/dL 0.2-1. 2 normal Not Available [address], [address], 11/05/2024 22:16:14 11/04/20 24 11/05/2024 COMPR EHENS KAREN METAB OLIC PANEL alkaline phosphatase 93 U/L 37-153 normal Not Available [address], [address], 11/05/2024 22:16:14 11/04/20 24 11/05/2024 COMPR EHENS KAREN METAB OLIC PANEL AST 20 U/L 10-35 normal Not Available [address], [address], 11/05/2024 22:16:14 11/04/20 24 11/05/2024 COMPR EHENS KAREN METAB OLIC PANEL ALT 20 U/L 6-29 normal Not Available [address], [address], 11/05/2024 22:16:14 11/04/20 24 11/05/2024 CBC (INCL UDES DIFF/ PLT) white blood cell count 6.2 thous and/u L 3.8-10 .8 normal Not Available [address], [address], 11/05/2024 22:16:16 11/04/20 24 11/05/2024 CBC (INCL UDES DIFF/ PLT) red blood cell count 4.59 konrad on/uL 3.80-5 .10 normal Not Available [address], [address], 11/05/2024 22:16:16 11/04/20 24 11/05/2024 CBC (INCL UDES DIFF/ PLT) hemoglobin 14.3 g/dL 11.7-1 5.5 normal Not Available [address], [address], 11/05/2024 22:16:16 11/04/20 24 11/05/2024 CBC (INCL UDES DIFF/ PLT) hematocrit 42.7 % 35.0-4 5.0 normal Not Available [address], [address], 11/05/2024 22:16:16 11/04/20 24 11/05/2024 CBC (INCL UDES DIFF/ PLT) MCV 93.0 fL 80.0-1 00.0 normal Not Available [address], [address], 11/05/2024 22:16:16 11/04/20 24 11/05/2024 CBC (INCL UDES DIFF/ PLT) MCH 31.2 pg 27.0-3 3.0 normal Not Available [address], [address], 11/05/2024 22:16:16 11/04/20 24 11/05/2024 CBC (INCL UDES DIFF/ PLT) MCHC 33.5 g/dL 32.0-3 6.0 normal For adult s, a sligh t decre ase in the calcu lated MCHC value (in the range of 30 to 32 g/dL) is most likel y not clini keara signi ficgisel t; rich er, it shoul d be inter prete d with cauti on in corre latio n with other red cell corbin eters and the patie nt's clini tiny condi tion. Not Available [address], [address], 11/05/2024 22:16:16 11/04/20 24 11/05/2024 CBC (INCL UDES DIFF/ PLT) RDW 12.9 % 11.0-1 5.0 normal Not Available [address], [address], 11/05/2024 22:16:16 11/04/20 24 11/05/2024 CBC (INCL UDES DIFF/ PLT) platelet count 308 thous and/u L 140-40 0 normal Not Available [address], [address], 11/05/2024 22:16:16 11/04/20 24 11/05/2024 CBC (INCL UDES DIFF/ PLT) MPV 11.1 fL 7.5-12 .5 normal Not Available [address], [address], 11/05/2024 22:16:16 11/04/20 24 11/05/2024 CBC (INCL UDES DIFF/ PLT) absolute neutrophils 3404 cells /uL 1500-7 800 normal Not Available [address], [address], 11/05/2024 22:16:16 11/04/20 24 11/05/2024 CBC (INCL UDES DIFF/ PLT) absolute lymphocytes 2065 cells /uL 850-39 00 normal Not Available [address], [address], 11/05/2024 22:16:16 11/04/20 24 11/05/2024 CBC (INCL UDES DIFF/ PLT) absolute monocytes 546 cells /uL 200-95 0 normal Not Available [address], [address], 11/05/2024 22:16:16 11/04/20 24 11/05/2024 CBC (INCL UDES DIFF/ PLT) absolute eosinophils 149 cells /uL 15-500 normal Not Available [address] [address] [place], [address], 11/05/2024 22:16:16 11/04/20 24 11/05/2024 CBC (INCL UDES DIFF/ PLT) absolute basophils 37 cells /uL 0-200 normal Not Available [address], [address], 11/05/2024 22:16:16 11/04/20 24 11/05/2024 CBC (INCL UDES DIFF/ PLT) neutrophils 54.9 % normal Not Available [address] [address] [place], [address], 11/05/2024 22:16:16 11/04/20 24 11/05/2024 CBC (INCL UDES DIFF/ PLT) lymphocytes 33.3 % normal Not Available [facility] [address], [address], 11/05/2024 22:16:16 11/04/20 24 11/05/2024 CBC (INCL UDES DIFF/ PLT) monocytes 8.8 % normal Not Available [facility] [address] [address] [place], [address], 11/05/2024 22:16:16 11/04/20 24 11/05/2024 CBC (INCL UDES DIFF/ PLT) eosinophils 2.4 % normal Not Available [facility] [address] [place], [address], 11/05/2024 22:16:16 11/04/20 24 11/05/2024 CBC (INCL UDES DIFF/ PLT) basophils 0.6 % normal Not Available [facility] [address] [place], [address], 11/05/2024 22:16:16 11/04/20 24 11/04/2024 HbA1c (hemo globi n A1c), blood HbA1c 5.5 Not Available In-Office Order Internal Use Only DO Not Attach Compendium DO Not Attach Compendium, Do Not Delete/merge, [id number] 11/04/2024 11:16:44 11/29/19 23 11/23/2022 US, echoc ardio gram No observ ation record ed. [email or web address] [facility] [address] [facility] [address], [place], [address], 12/04/2022 22:30:11 12/26/19 23 11/23/2022 , echoc ardio gram No observ ation record ed. [email or web address] [facility] [address] [facility] [address], [place], [address], 12/26/2022 13:56:04 12/29/19 surg xr foot lt 2V [facility] [address] [facility] [place] [address] Intrao perati ve fluoro scopic views of the left foot Access ion: [id number] Histor y: Left foot pain Dose: Total Dose Area Produc t: 0.0134 (Gycm2 ). Techni que: Intrao perati ve fluoro scopy contro l images obtain ed. Findin gs: Single submit eddie image demons trates the midpor tion of the anteri or left foot. Impres elton: Fluoro scopic spot views of left foot obtain ed for intrao perati ve contro l purpos es and evalua eddie postop erativ emmie. Referr ed By: Electr onical ly Signed By: Faisal robert MD on 023 1:57 PM Interp reted By: Faisal robert MD, 023 1:56 PM ruben [facility] [address] [place], [address], 01/01/2023 14:52:02 05/30/20 23 bone densi ty/de xa [facility] [place] [address] EXAMIN ATION: BONE DENSIT Y/DEXA ACCESS ION: [id number] INDICA TIONS: evalua tion for osteop enia/o steopo rosis, asympt omatic menopa usal state COMPAR TANIA: None TECHNI QUE: DEXA bone minera l densit y evalua tion was perfor med in the AP projec tion over the lumbar spine and both hips utiliz ing standa rd imagin g techni ques. ASSESS MENT: The BMD measur ed at the AP spine L1-L4 is 1.505 g/cm? with a T-scor e of 4.2. These measur ements are artifa ctuall y elevat ed second j carlos to multil evel endpla te sclero sis and spondy losis. The BMD measur ed at the left femora l neck is 0.793 g/cm? with a T-scor e of -0.5. The BMD measur ed at the left hip is 1.049 g/cm? with a T-scor e of 0.9. The BMD measur ed at the right femora l neck is 0.692 g/cm? with a T-scor e of -1.4. The BMD measur ed at the right hip is 1.137 g/cm? with a T-scor e of 1.6. FRAX 10-yea r fractu re risk: Major Osteop orotic Fractu re: 8.4% Hip Fractu re: 0.9% IMPRES ELTON: WHO Classi ficati on: Osteop enia. RECOMM ENDATI ONS: All patien ts should ensure an adequa te intake of dietar y calciu m and vitami n D. The NOF recomm end adults under the age of 50 need 1000 mg of calciu m and 400-80 0 IU of vitami n D daily. Effect karen therap y for the preven tion and treatm ent of osteop orosis includ e bispho sphona amanda. Follow -up: People with diagno sed cases of osteop orosis or at high risk for fractu re should have regula r bone minera l densit y test. For patien ts eligib le for Medica re, routin e testin g is allowe d once every 2 years. Testin g freque ncy can be increa sed to one year for patien ts who have rapidl y progre ssing diseas e, those who are receiv ing or discon tinuin g medica l therap y to restor e bone mass, or have additi onal risk factor s. Referr ed By: LIUDMILA OSWALD SON Electr onical ly Signed By: Adelfo Parra MD on 10:47 AM Interp reted By: Adelfo Parra MD, 023 10:45 AM [facility] [address] [facility], [place], [address], 06/05/2023 12:06:18 05/30/20 23 MAMMO , scree jose a, tomos ynthe sis, bilat eral [facility] [place] [address] This is a summar y report . The comple te report is availa ble in the patien t's medica l record . If you cannot access the medica l record , please contac t the sendin susan riverai jesus for a detail ed fax or copy. EXAMIN ATION: Digita l bilate ral screen ing mammog pamela with 3-D tomosy nthesi s ACCESS ION: [id number] EXAM DATE/T ILIANA: 7/18/2 023 11:10 AM REASON FOR EXAM: visit for screen ing mammo COMPAR TANIA: May 2022, May 2021, May 2016 TECHNI QUE: Digita l screen ing mammog matt of both breast s was perfor med in additi on to 3-D Tomosy nthesi s techni que. This study was read with the assist ance of a [employer] er-aid ed detect ion system . TISSUE DENSIT Y: There are scatte red areas of fibrog landul ar densit y. FINDIN GS: No suspic ious masses , malign ant appear ing calcif icatio ns, skin thicke jose a or other abnorm alitie s are presen t. No signif icant change from the prior exam. =====I MPRESS ION:== === No mammog raphic findin gs sugges tive of malign laurent ASSESS MENT: ACR BI-RAD S 2 - BENIGN FINDIN G(S) Recomm endati on: 1: Routin e Screen ing Bilate ral COMMEN TS: ====== ====== ====== ====== Ordere d By: CIELO ALSTON Electr onical ly Signed By: Asher barrera MD on 023 12:16 PM Interp reted By: Asher barrera MD, 023 12:15 PM [email or web address], [address], 06/20/2023 09:57:45 05/30/20 23 05/30/2023 MAMMO , scree jose a, bilat eral No observ ation record ed. [email or web address] [address], [address], 06/05/2023 12:06:42 Result Notes None recorded. Problems Name Problem SNOMED Code Status Onset Date Resolution Date Notes Provider Name and Address Organization Details Recorded Time Prediabetes 995167794 Active 2018 Casa Lowe MD Attn: Abigail davis,[address] [place], [address], [place] [facility] 3 11:22:06 Body mass index 30+ - obesity 431349479 Active 2022 Casa Lowe MD Attn: Abigail g,[address] [facility], [place], [address], [place] [facility] 3 14:08:22 Long-term drug therapy Active 2022 Casa Lowe MD Attn: Heidylarry davis,[address] [facility], [place], [address], [place] [facility] 3 14:08:29 Sesamoiditi s 94041416 Completed 202201/13/2024 Casa Lowe MD Attn: Abigail susan,[address] [facility], [place], [address], [place] [facility] 4 08:27:15 Osteopenia 286187609 Active 2022 Casa Lowe MD Attn: Abigail susan,[address] [facility], [place], [address], [place] [facility] 3 13:47:51 Asthmatic bronchitis 587941296 Active 2022 Casa Lowe MD Attn: Abigail susan,[address] [facility], [place], [address], [place] [facility] 3 13:50:47 Liver enzymes level above reference range 200355831 Active 2023 Casa Lowe MD Attn: Abigail g,[address] [facility], [place], [address], [place] [facility] 4 16:28:08 Vitamin D deficiency 01009166 Active 2023 Casa Lowe MD Attn: Abigail g,[address] [facility], [place], [address], [place] [facility] 4 08:27:29 Low back pain 828417904 Active 2013 Casa Lowe MD Attn: Abigail susan,[address] [facility], [place], [address], [place] [facility] 3 11:21:17 Spinal stenosis of lumbar region 89415033 Active 2013 Casa Lowe MD Attn: Heidylarry davis,[address] [facility], [place], [address], [place] [facility] 3 11:21:40 Neurogenic claudicatio n 425235506 Active 2013 Casa Lowe MD Attn: Abigail g,[address] [facility], [place], [address], [place] [facility] 3 11:21:24 Benign essential hypertensio n 5927235 Active 2014 Casa Lowe MD Attn: Abigail susan,[address] 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, [place], [address], [place] [facility] 3 11:21:32 Hypersomnia with sleep apnea 68206523 Completed 201306/05/2014 Casa Lwoe MD Attn: Heidylarry davis,[address] [facility], [place], [address], [place] [facility] 3 11:32:16 Screening for malignant neoplasm of colon Completed 201404/17/2023 Casa Lowe MD Attn: Heidylarry g,[address] [facility], [place], [address], [place] [facility] 3 11:22:20 Obstructive sleep apnea syndrome 08377816 Active 2015 Casa Lowe MD Attn: Abigail g,[address] [facility], [place], [address], [place] [facility] 3 11:21:28 Mixed hyperlipide yahir 362893016 Active 2015 Casa Lowe MD Attn: Abigail davis,[address] [facility], [place], [address], [facility] 3 11:21:20 Problem Notes None recorded. Procedures Surgical History Date Name Laterality Status Provider Name and Address Organization Details Recorded Time Hysterectomy completed Nidhi French [facility] 10/18/2016 11:03:04 Imaging Results None recorded. Procedure Notes None recorded. Medical Equipment None Reported. Allergies Allergen ID Allergen Name Allergen Category Reaction Reaction Severity Criticality Documentation Date Start Date Code Code System Note Provider Name and Address Organization Details Recorded Time 87518 Non-stero idal anti-infl ammatory agent (product) medicatio n Not available Not available Not available 10/18/2016 03242 005 [facility]ED [facility] 11:19:10 Medications Name Sig Start Date Stop Date Status Note LastModified by Organization Details LastModified Time losartan 50 mg tablet Take 1 tablet(s) by mouth daily 10/18 completed Not Available Not Available Not Available doxycycline hyclate 100 mg capsule TAKE 1 CAPSULE BY MOUTH TWICE A DAY 12/20 completed Not Available Not Available Not Available atorvastati n 10 mg tablet Take 1 tablet every day by oral route. active Not Available Not Available No t Available ibuprofen 800 mg tablet TAKE 1 TABLET EVERY 4 TO 6 HOURS NEEDED FOR PAIN 01/01 completed Not Available Not Available Not Available hydrocodone 5 mg-acetamin ophen 325 mg tablet TAKE 1 TO 2 TABLETS BY MOUTH EVERY 4 HOURS NEEDED FOR PAIN OR ACUTE PAIN 04/17 completed Not Available Not Available Not Available lisinopril 20 mg tablet one PO daily 06/22 completed RxNor m: [id number] 7;All ow Subst ituti on: True Not Available Not Available Not Available prednisone 20 mg tablet TAKE 2 TABLETS BY MOUTH EVERY MORNING X 2 DAYS, THEN TAKE 1 TABLET BY MOUTH EVERY MORNING X 4 DAYS 01/12 completed Not Available Not Available Not Available acetaminoph en 300 mg-codeine 30 mg tablet TAKE 1 TABLET BY MOUTH EVERY 6 TO 8 HOURS WITH FOOD 11/09 completed Not Available Not Available Not Available sulfamethox azole 800 mg-trimetho prim 160 mg tablet TAKE 1 TABLET BY MOUTH TWICE A DAY 04/17 completed Not Available Not Available Not Available hydrocodone 10 mg-acetamin ophen 325 mg tablet TAKE 1 TABLET EVERY 6 HOURS NEEDED FOR PAIN 05/06 completed Not Available Not Available Not Available triamcinolo ne acetonide 0.1 % topical cream APPLY A THIN LAYER TO THE AFFECTED AREA(S) BY TOPICAL ROUTE 2 TIMES PER DAY up to 2 weeks. 08/15 completed Not Available Not Available Not Available Kenalog 40 mg/mL suspension for injection Take 60 mg by injection route. 10/30 completed Not Available Not Available Not Available cefadroxil 500 mg capsule TAKE 1 CAPSULE BY MOUTH TWICE A DAY 11/09 completed Not Available Not Available Not Available ceftriaxone 1 gram solution for injection Take 1 g by injection route. 04/29 completed Not Available Not Available Not Available candesartan 16 mg-hydrochl orothiazide 12.5 mg tablet one PO daily 02/06 completed Not Available Not Available Not Available cephalexin 500 mg capsule TAKE 1 CAPSULE BY MOUTH EVERY 6 HOURS 05/06 completed Not Available Not Available Not Available neomycin-po lymyxin-dex ameth 3.5 mg/mL-10,00 0 unit/mL-0.1 % eye drops INSTILL 1 DROP INTO RIGHT EYE FOUR TIMES A DAY FIRST 5 DAYS, SECOND 5 DAYS TWICE A DAY 11/09 completed Not Available Not Available Not Available triamcinolo ne acetonide 0.1 % topical ointment APPLY A THIN LAYER TO THE AFFECTED AREA(S) BY TOPICAL ROUTE 2 TIMES PER DAY 01/01 completed Not Available Not Available Not Available ibuprofen 600 mg tablet 1 q 8 hours prn 11/05 completed RxNor m: [id number];All ow Subst ituti on: True Not Available Not Available Not Available methylpredn isolone 4 mg tablets in a dose pack Take 1 dose pk by oral route. 10/30 completed Not Available Not Available Not Available albuterol sulfate HFA 90 mcg/actuati on aerosol inhaler INHALE 2 PUFFS 4 TIMES A DAY BY INHALATIO N ROUTE FOR 7 DAYS. 05/06 completed Not Available Not Available Not Available losartan 50 mg-hydrochl orothiazide 12.5 mg tablet TAKE 1 TABLET BY MOUTH EVERY DAY 2024 active Not Available Not Available Not Avai lable azithromyci n 500 mg tablet TAKE 1 TABLET BY MOUTH EVERY DAY FOR 3 DAYS 01/12 completed Not Available Not Available Not Available cholecalcif lynnette (vitamin D3) 1,250 mcg (50,000 unit) capsule TAKE 1 CAPSULE BY MOUTH ONE TIME PER WEEK FOR 90 DAYS 11/04 completed Not Available Not Available Not Available Flublok Quad (PF) 180 mcg (45 mcg x 4)/0.5 mL IM syringe PHARMACY ADMINISTE RED 11/10 completed Not Available Not Available Not Available Vitals Date Recorded Body height Body mass index (BMI) Body weight Body temperature Oxygen saturation Oxygen saturation in Arterial blood by Pulse oximetry Heart rate Systolic blood pressure Diastolic blood pressure Provider Name and Address Organization Details Last Updated DateTime 3 157.48 cm 35.5 kg/m2 03975.9 7 g 97.3 [degF] 98 % 98 % 60 /min 126 mm[Hg] 78 mm[Hg] Dieudonne Hernandez MA [facility] 3 14:36:30 Date Recorded Body height Body mass index (BMI) Body weight Body temperature Oxygen saturation Oxygen saturation in Arterial blood by Pulse oximetry Heart rate Systolic blood pressure Diastolic blood pressure Provider Name and Address Organization Details Last Updated DateTime 3 157.48 cm 37.2 kg/m2 01741.9 5 g 97 [degF] 95 % 95 % 62 /min 151 mm[Hg] 82 mm[Hg] Estela Polanco MA [facility] 3 11:10:40 Date Recorded Body height Body temperature Heart rate Oxygen saturation Oxygen saturation in Arterial blood by Pulse oximetry Body mass index (BMI) Body weight Systolic blood pressure Diastolic blood pressure Provider Name and Address Organization Details Last Updated DateTime 4 157.48 cm 98.6 [degF] 72 /min 95 % 95 % 39.9 kg/m2 38664.2 4 g 129 mm[Hg] 72 mm[Hg] Gia Red MA [facility] 4 12:03:31 Date Recorded Body height Body mass index (BMI) Body weight Body temperature Oxygen saturation Oxygen saturation in Arterial blood by Pulse oximetry Heart rate Systolic blood pressure Diastolic blood pressure Provider Name and Address Organization Details Last Updated DateTime 4 157.48 cm 33.8 kg/m2 56371.1 5 g 97.1 [degF] 100 % 100 % 67 /min 130 mm[Hg] 60 mm[Hg] Alissa Perry MA [facility] 4 14:56:53 Date Recorded Body height Body temperature Heart rate Oxygen saturation Oxygen saturation in Arterial blood by Pulse oximetry Systolic blood pressure Diastolic blood pressure Provider Name and Address Organization Details Last Updated DateTime 3 157.48 cm 97.2 [degF] 86 /min 96 % 96 % 146 mm[Hg] 76 mm[Hg] Mamadou Jenkins MA [facility] 3 12:20:05 Social History Question Answer Notes LastModified by Triptrotting Details LastModified Time Tobacco Sm[facility] Status [facility] 11:03:08 What Is Your Level Of Caffeine Consumption? Occasional Information not available 04/13/2021 What Was The Date Of Your Most Recent Tobacco Screening? 11/04/2024 [email or web address] Information not available 11/04/2024 Has Tobacco Cessation Counseling Been Provided? No Information not available 04/13/2021 Sex: Female Functional Status Question Answer Note LastModified by Triptrotting Details LastModified Time Do you use any illicit or recreational drugs? No Information not available 04/13/2021 Do you or have you ever used any other forms of tobacco or nicotine? No Information not available 04/13/2021 What is your level of alcohol consumption? None Information not available 04/13/2021 Mental Status None recorded. Family History Relationship Description Onset Age of this Age Resolved Age Notes LastModified by Organization Details LastModified Time Mother Malignant tumor of breast [email or web address] Not available 2015 11:03:16 Mother Hypertensive disorder hreedma Not available 2015 11:03:45 Mother Atrial fibrillation [email or web address] Not available 11:21:45 Sister Cerebrovascu lar accident first one 11/14/19 15 -- second 018 (now 64) [email or web address] Not available 10/30/2018 11:19:36 Sister Hypertensive disorder hreedma Not available 2015 11:03:45 Sister Hypercholest erolemia hreedma Not available 2015 11:03:52 Sister Kidney disease hreedma Not available 2015 11:03:59 Sister Diabetes mellitus [email or web address] Not available 2017 11:20:00 Sister Malignant neoplasm of ovary 65 [email or web address] Not available 2018 12:19:43 Sister Atrial fibrillation [email or web address] Not available 11:21:28 Father Heart disease hreedma Not available 2015 11:03:30 Father Hypertensive disorder hreedma Not available 2015 11:03:45 Father Myocardial infarction hreedma Not available 10/18 11:04:07 Medical History Condition Response Other Y High Blood Pressure Y Gynecological History Statement/Question Response Menses Monthly N Obstetrics History GPAL:G 0 P 0 0 0 0 Immunizations Vaccine Type Date Status Note Provider Nam e and Address Organization Details Recorded Time Influenza, split virus, quadrivalent, preservative 0 completed Not Available [facility] 10/28/2022 11:07:43 Influenza, split virus, quadrivalent, preservative 1 completed Not Available [facility] 10/28/2022 11:07:43 COVID-19, mRNA, LNP-S, PF, 30 mcg/0.3 mL dose 1 completed Not Available [facility] 10/28/2022 11:07:43 Influenza, high-dose, trivalent, PF 4 completed [place] [facility] 09/23/2024 11:16:42 COVID-19, mRNA, LNP-S, PF, mushtaq-sucrose, 30 mcg/0.3 mL 4 completed [facility] [place] [facility] 09/23/2024 11:17:00 pneumococcal polysaccharide PPV23 4 completed [place] [facility] 11/07/2024 13:28:29 Influenza, split virus, quadrivalent, preservative 6 completed Not Available [facility] 10/28/2022 11:07:43 Tdap 5 completed Not Available [facility] 10/28/2022 11:07:43 Influenza, split virus, quadrivalent, preservative 5 completed Not Available [facility] 10/28/2022 11:07:43 Influenza, split virus, trivalent, preservative 1 completed Not Available [facility] 10/28/2022 11:07:43 influenza, unspecified formulation 7 completed Not Available [facility] 10/28/2022 11:07:43 Past Encounters Encounter ID Performer Location Encounter Start Date Encounter Closed Date Diagnosis/Indication Diagnosis SNOMED-CT Code Diagnosis ICD10 Code Diagnosis Note [id number] Cielo Alston MD [facility] [address] [place] [address] 10/18/2016 10:51:32 10/21/2016 11:50:08 Acquired trigger finger 8403244 M65.30 Essential hypertension 20555055 I10 [id number] Cielo Alston MD [facility] [address] [place] [address] 04/13/2017 09:59:37 04/13/2017 13:39:42 Benign essential hypertension 6834277 I10 Intentiona l weight loss 490414371 R63.8 weight watchers -- 30 pounds [id number] Cielo Alston MD [facility] [address] [place] [address] 10/19/2017 10:44:51 10/19/2017 16:49:41 Benign essential hypertension 6227512 I10 BP currently well-contr olled. Patient to continue current medication s. Hyperlipid emia screening 996903061 Z13.038 [id number] Cielo Alston MD [facility] [address] [place] [address] 04/30/2018 15:48:44 05/01/2018 13:53:20 Benign essential hypertension 9140224 I10 BP currently well-contr olled. Patient to continue current medication s. Mixed hyperlipidemia 267 029919 E78.2 Intentiona l weight loss 868797631 R63.8 weight watchers -- now 50 pounds Acute back pain with sciatica 579659851 M54.42 [id number] Ashley Gore MD [facility] [address] [place] [address] 07/19/2018 10:12:16 07/20/2018 09:55:36 Contact dermatitis 85127446 L25.9 stay cool, cont Benadryl at night as needed [id number] Cielo Alston MD [facility] [address] [place] [address] 10/30/2018 10:39:55 10/31/2018 10:50:37 Benign essential hypertension 2104089 I10 BP currently well-contr olled. Patient to continue current medication s. Mixed hyperlipidemia 267 630179 E78.2 Eczema 37214756 L30.9 Viral screening 03763320 4 Z11.59 Screening for malignant neoplasm of breast 554582296 Z12.31 Body mass index 30+ - obesity 721647529 Z68.32 Spinal bam nosis of lumbar region 76406916 M48.194 [id number] Cielo Alston MD [facility] [address] [place] [address] 11/16/2018 13:23:33 11/16/2018 15:40:20 Cellulitis of toe of left foot 8779735279 5098733 L03.032 if any fevers or chills or streaking head to ER this weekend [id number] Cielo Alston MD [facility] [address] [place] [address] 04/29/2019 11:52:43 04/29/2019 13:01:00 Benign essential hypertension 6495312 I10 BP currently well-contr olled. Patient to continue current medication s. Mixed hyperlipidemia 267 778084 E78.2 Unintentio nal weight gain 5512862382 70980 R63.5 Body mass index 30+ - obesity 933787469 Z68.32 Family his tory of diabetes mellitus 888269435 Z83.3 Deformity of bone in foot 638654886 M21.6X9 Eczema 86169908 L30.9 Low back pain 792516737 M54.5 [id number] Cielo Alston MD [facility] [address] [place] [address] 11/10/2020 09:20:52 11/11/2020 17:18:41 Prediabetes 299217209 R73.03 Mixed hyperlipidemia 267 705722 E78.2 Essential hypertension 13738123 I10 Sesamoiditis 72786936 M2 5.80 [id number] Cielo Alston MD [facility] [address] [place] [address] 04/13/2021 15:27:13 04/13/2021 17:27:24 Benign essential hypertension 0879276 I10 Mixed hyperlipidemia 267 851827 E78.2 Prediabetes 485266359 R7 3.03 Obstructiv e sleep apnea syndrome 45392627 G47.33 sleep study at [facility] 05/2014 Screening for malignant neoplasm of breast 075433236 Z12.31 [id number] Cielo Alston MD [facility] [address] [place] [address] 08/15/2022 10:16:44 08/15/2022 20:39:27 Benign essential hypertension 6715530 I10 Mixed hyperlipidemia 267 571908 E78.2 Osteomyelitis 87219901 M 86.9 left foot sesmoid bone Prediabetes 864033290 R7 3.03 [id number] Casa Lowe MD [facility] [address] [place] [address] 12/20/2022 14:23:01 12/21/2022 10:33:28 Pre-surgery evaluation 254733312 Z01.818 Presently clinically stable for scheduled surgeryAvo idance of Aspirin or NSAIDS 5-7 days prior to surgery or as directed by surgeonAwa it electrocar diogram from cardiology Labs: obtaining routine preop labsNo contraindi cation to surgery if normal laboratory - will complete Luis Alberto (Revised) ScorePatie nt to call with any changes in present statusADDE NDUM:- having reviewed cardiology note from October,, patient is cleared with a normal echocardio deborah- Luis Alberto (Revised) Score: 0, Class I: Very Low Risk - routine perioperat karen precaution s Sesamoiditis 46416092 M2 5.80 - planned surgical excision [id number] Casa Lowe MD [facility] [address] [place] [address] 04/17/2023 10:50:14 04/18/2023 11:12:56 Benign essential hypertension 2412144 I10 # HTN - Nearly controlled - Continue current medication s. No change in management - Encouraged routine blood pressure checksat home, targetless than 140/90 - DiscussedD FORREST diet(https ://www.nhl bi.nih.gov /files/doc s/public/h eart/dash_ brief.pdf) anddietary sodium restrictio ns - Continue/I ncrease dietary efforts and physical activity Mixed hyperlipidemia 267 964999 E78.2 # Hyperlipid emia - Last lipid panel < 1 year ago - ACC/AHA CV risk > 7.5% (11.1% - blood pressure) - Repeat prior to next visit - Continue with current management without changes. - Focus on a dietlow in saturated fats(https ://www.[facility] [employer].or g/educatio n/guidelin es-for-a-l ow-cholest lynnette-low-s aturated-f at-diet),b lood pressure control,sm oking cessation( http://cassia tyes.org/) anddaily exerciseto reduce your risk ofheart disease and stroke. Obstructiv e sleep apnea syndrome 02619594 G47.33 # JESSIKA on CPAPGood compliance .Symptoms improved.C ontinue to monitor. Prediabetes 863627641 R7 3.03 Continue dietary and lifestyle interventi ons Low back pain 254376979 M54.51 - stable, working on increasing exercise Body mass index 30+ - obesity 354353690 Z68.37 Focus on a healthy diet, avoid added salt, and ldvamf2574 calories or less daily. Exercise as tolerated, targeting3 0-60 minutes of exercise daily, at least 5 days per week Long-term drug therapy 125072463 Z79.899 Checking routine labwork prior to follow-up for ongoing long-term medication use. Menopause present 611057 006 Z78.0 [id number] Casa Lowe MD [facility] [address] [facility] [place] [address] 11/09/2023 11:56:09 11/10/2023 10:42:13 Benign essential hypertension 4782876 I10 # HTN - Nearly controlled - Continue current medication s. No change in management - Encouraged routine blood pressure checksat home, targetless than 140/90 - DiscussedD FORREST diet(https ://www.nhl bi.nih.gov /files/doc s/public/h eart/dash_ brief.pdf) anddietary sodium restrictio ns - Continue/I ncrease dietary efforts and physical activity Mixed hyperlipidemia 267 029207 E78.2 # Hyperlipid emia- Last lipid panel > 1 year ago- ACC/AHA CV risk > 7.5%- Repeat today- Continue with current management without changes.- Focus on a dietlow in saturated fats(https ://www.[facility] [employer].or g/educatio n/guidelin es-for-a-l ow-cholest lynnette-low-s aturated-f at-diet),b lood pressure control,sm oking cessation( http://cassia tyes.org/) anddaily exerciseto reduce your risk ofheart disease and stroke. Prediabetes 566018531 R7 3.03 Continue dietary and lifestyle interventi ons Body mass index 30+ - obesity 048188586 Z68.37 Focus on a healthy diet, avoid added salt, and faktad9428 calories or less daily. Exercise as tolerated, targeting3 0-60 minutes of exercise daily, at least 5 days per week Long-term drug therapy 721364974 Z79.899 Checking routine labwork prior to follow-up for ongoing long-term medication use. Obstructiv e sleep apnea syndrome 72431530 G47.33 # JESSIKA on CPAPGood compliance .Symptoms improved.C ontinue to monitor. Low back pain 155014646 M54.51 - stable, working on increasing exercise Osteopenia 026863927 M85 .80 - continues on vitamin D, calcium, working toward exercise Asthmatic bronchitis 405 602444 J45.909 Likely viral.Reas surance. Supportive care.Incre ase fluid intake, rest.Anti- inflammato ry with oral corticoste roids.Plai n Robitussin , plain Mucinex, or Coricidin HBP for congestion /sinus pressure/e ar painSalt water gargles, ice chips to soothe throat tid. Lozenges.I ncrease humidity using humidifier by bedside. Exposure to steam for expectorat ion.Nasal saline prn.Beta-a gonist bronchodil atorReturn to clinic if not improved over the next several days, or if getting worse. [id number] Casa Lowe MD [facility] [address] [place] [address] 05/06/2024 11:17:38 05/06/2024 21:11:04 Benign essential hypertension 4484927 I10 # HTNControl ledContinu e current medication s. No change in management Encouraged routine blood pressure checksat home, targetless than 140/90Disc ussedDASH diet(https ://www.nhl bi.nih.gov /files/doc s/public/h eart/dash_ brief.pdf) anddietary sodium restrictio nsContinue /Increase dietary efforts and physical activity Mixed hyperlipidemia 267 134909 E78.2 # Hyperlipid emia Last lipid panel < 1 year ago ACC/AHA CV risk > 7.5% (7.8% w/ controlled systolic blood pressure) Repeat prior to next visit Continue with current management without changes. Focus on a dietlow in saturated fats(https ://www.[facility].or g/educatio n/guidelin es-for-a-l ow-cholest lynnette-low-s aturated-f at-diet),b lood pressure control,sm oking cessation( http://cassia tyes.org/) anddaily exerciseto reduce your risk ofheart disease and stroke. Prediabetes 403858233 R7 3.03 6.5 at last check - repeat todayConti nue dietary and lifestyle interventi ons Obstructiv e sleep apnea syndrome 67390765 G47.33 # JESSIKA on CPAPGood compliance .Symptoms improved.C ontinue to monitor. Low back pain 907659407 M54.51 - stable, working on increasing exercise Body mass index 30+ - obesity 906535716 Z68.37 Focus on a healthy diet, avoid added salt, and vehkws5435 calories or less daily. Exercise as tolerated, targeting3 0-60 minutes of exercise daily, at least 5 days per week Long-term drug therapy 335723297 Z79.899 Checking routine labwork prior to follow-up for ongoing long-term medication use. Osteopenia 183652865 M85 .80 - continues on vitamin D, calcium, working toward exercise Liver enzy mes level above reference range 346745284 R74.01 recheck today Vitamin D deficiency 347 64726 E55.9 recheck vitamin D [id number] Ashley Gore MD [facility] [address] [place] [address] 11/04/2024 14:43:38 11/04/2024 16:32:06 Benign essential hypertension 3060621 I10 -Controlle d on current therapy.-G oals: BP < 140/90 per JNC8, prevent CV and renal comorbidit ies.-Shoul d notify office for BP less than 90/60.-Cindy ntain a low sodium (less than 2000mg) diet and encouraged at least 30-45 minutes of aerobic activity most days of the week-Healt hy weight-f/u 6 months Mixed hyperlipidemia 267 035681 E78.2 Follow a low fat and low cholestero l diet.Reduc e dietary intake of fat to less than 30% of total calories.L imit total cholestero l to less than 200mg per day.Minimi ze use of trans fatty acids.Incr ease intake of fiber, vegetables , fruits and other whole grains.Par ticipate in aerobic exercise (at least 30 minutes 4 days a week).Avoi d tobacco products. Prediabetes 265441459 R7 3.03 -A1C still consistent with prediabete s at 5.5-Advise d to cut the carbohydra amanda in diet (bread, pasta, rice, potatoes, and sweets) and increase physical activity to goal of 150 min of aerobic activity weekly.-re check A1C in 6 months Liver enzy mes level above reference range 818305200 R74.01 -pt liver enzymes were elevated at last visit, will recheck and if still elevated will refer to heptologis t for fatty liver evaluation . Pt agrees. Obesity 656583237 E66.9 -pt has been consistent ly following a plan with weight watchers since April 2024, she has lost a total of 34 pounds so far. She plans to continue to follow their plan. 1. Restrict Caloric Intake: Instead of calculatin g total calories, you can eliminate one food item from daily intake at a time that would be worth of 100-200 kcal. Minimize Processed carbohydra amanda (Potatoes, Pasta, Bread, rice and corn) and processed sugars (Sodas, Cookies, Donuts & Desserts). Small plates and bowels. Small meals (Under 250kcal) at a time!2. Quality of Diet: Organic, Non-GMO, fresh, raw-food, whole-food & more fruits and vegetables . Look for lean protein (Soy, Lentils, beans, legumes and nuts). Avoid processed food (frozen, canned, fast-food) . Shop food economical ly from multiple places.3. Stress Reduction: Yoga, Mindfulnes s, Exercise, Volunteeri ng, Spirituali ty! Mindfulnes s eating (Avoid multi-task ing while eating and Increase awareness of what food is doing to Body).4. Quality Restful Sleep: Melatonin, Yoga-Nidra , Kiwi fruit. Avoid meals in last two hours of the day. Avoid Caffeine, alcohol, high sugar/francis erts and tobacco with or after dinner.5. Increase Exertion within Daily Activities : [phone] Steps/day. Avoid Elevators, escalators at public places. Increase steps in parking lots! Contact dermatitis 45453 004 L25.9 -pt to apply triamcinol one cream 2x/day for 2 weeks. If not better or gets worse pt instructed to make a f/u appt sooner than 6 months. Health Concerns Section Related Observation LastModified by Organization Detai ls LastModified Time None Recorded Concern Status LastModified by Organization Details LastModified Time None Recorded Advance Directives Directive None Recorded Payers Encounter Date Sequence Insurance Name Policy Number Policy Ludwig Covered Member ID Ludwig Member ID Guarantor Name 12/20/2022 1 [place] Parvin Rodriguez [id number] Parvin Rodriguez 12/20/2022 2 [employer]ARP (MEDICARE SUPPLEMENT) PLAN G Parvin Rodriguez [id number] Parvin Rodriguez 04/17/2023 1 [place] Parvin Rodriguez [id number] Parvin Rodriguez 04/17/2023 2 [employer] (MEDICARE SUPPLEMENT) PLAN G Parvin Rodriguez [id number] Parvin Rodriguez 11/09/2023 1 [place] Parvin Rodriguez [id number] Parvin Rodriguez 11/09/2023 2 [employer] (MEDICARE SUPPLEMENT) PLAN G Parvin Rodriguez [id number] Parvin Rodriguez 05/06/2024 1 [place] Parvin Rodriguez [id number] Parvin Rodriguez 05/06/2024 2 [employer] (MEDICARE SUPPLEMENT) PLAN G Parvin Rodriguez [id number] Parvin Rodriguez 11/04/2024 1 [place] Parvin Rodriguez [id number] Parvin Rodriguez 11/04/2024 2 [employer] (MEDICARE SUPPLEMENT) PLAN Susan Rodriguez [id number] Parvin Rodriguez Notes Date Note Type Note Provider Name and Address Organization Details Recorded Time 3 text/html PREOPERATIVE VISIT/SUBJECTIVE: Diagnosis: Sesamoiditis, left footProcedure: Excision of left fibular sesamoidSurgeon: Rafa Of Surgery: 12/29/22No complications from previous anesthesiaPatient has no active cardiac conditionsNo history of coronary artery disease or prior myocardial infarctionNo history of congestive heart failureNo history of insulin-dependent diabetes mellitusNo history of chronic kidney disease on hemodialysisGood functional status. Patient is able to walk four blocks or climb two flights of stairsPatient denies chest pain, dyspnea, or palpitations during the last six monthsNo acute concerns. Pertinent past medical, surgical, family and social history reviewed and updated as needed. Pertinent positives and negatives as noted in HPI. All other systems reviewed and negative. -Regulatory Manager/Nursing note reviewed.- Casa Lowe MD Attn: Accounting,[address] [place] [address], [place], [address], [facility] 12/26/2022 19:29:35 3 text/html Hypertension F/UReported bypatient.Associated Symptoms:no dizziness; no lightheadedness; no chest pain; no shortness of breath; no palpitations; no edema; no calf pain with exertion Medications:taking medications as directed; no side effects from medication 6+-MONTH FOLLOW-UP VISIT/SUBJECTIVE: The patient presents for routine 6+-month follow-up of hypertension and hyperlipidemia, among other chronic conditions Last routine follow-up office visit: [id number] labwork: 9Feb22 (BMP), 5OCt22 (hemoglobin A1c), 97Cix96 (lipids) Patient reports consistent use of medications, without side effects or intolerances. Current concerns:- none- I saw Parvin 3 months ago for preop visit for sesamoidectomy-- she says it went well, though she now has a wandering toe (flexor tendon injury/release from surgery) - following with podiatry regularly Health maintenance:- Immunizations due: COVID booster, pneumococcal, vzv, (flu)- Colorectal cancer screening: remote - (DIEGO?)- Well-woman exam: hysterectomy - not applicable- Mammography: [id number]- DEXA: remoteORDER Hypertension - On losartan, hydrochlorothiazide - Consistent use of medications - Does not report any headaches, blurry vision, dizziness, chest pain, shortness of breath, or palpitations - chronic blurry vision - follows with eye managed care provider - Not following a low salt diet. - Exercising - not typically Hyperlipidemia - On no medication(s) at this time - Following a low-cholesterol diet - Last lipid panel < 1 year ago Prediabetes - last hemoglobin A1c > 1 year ago - Following a lower carbohydrate diet - Exercising JESSIKA on CPAP - Good adherence to CPAP use - Comfortable with CPAP pressures and mask fit - Reports improvement in alertness and quality of life Chronic low back pain- adjusts activities, looking toward water aerobics/swimming as good options -Regulatory Manager/Nursing note reviewed.- Casa Lowe MD Attn: Accounting,[address], [place], [address], [facility] 04/17/2023 13:12:08 3 text/html Hypertension F/UReported bypatient.Associated Symptoms:no dizziness; no lightheadedness; no chest pain; no shortness of breath; no palpitations; no edema; no calf pain with exertion Lifestyle:regular exercise;high salt intake Medications:taking medications as directed; no side effects from medication 6+-MONTH FOLLOW-UP VISIT/SUBJECTIVE: Parvin presents for routine 6-month follow-up of hypertension and hyperlipidemia, among other chronic conditions Last routine follow-up office visit: [id number] labwork: 9Feb23 (bmp) Patient reports consistent use of medications, without side effects or intolerances. Current concerns:- cough - 10-14 days-- intermittent-- some production-- minimal nocturnal cough-- no fevers or chills. no night sweats-- no chest pain or dyspnea-- Using crod-zxu-rcculcu meds with some relief. (cough drops, Coricidin HBP) - throbbing pain to left postauricular area-- ongoing for less than a week-- recent dental work Health maintenance:- Immunizations due: pneumococcal- Colorectal cancer screening: remote - at [facility]?- Well-woman exam: hysterectomy - not applicable- Mammography: [id number]- DEXA: 66Psp32 - osteopenia Hypertension- On losartan, hydrochlorothiazide- Consistent use of medications- Does not report any headaches, blurry vision, dizziness, chest pain, shortness of breath, or palpitations - chronic blurry vision - follows with eye managed care provider- Not following a low salt diet.- Exercising - not typically Hyperlipidemia- On no medication(s) at this time- Following a low-cholesterol diet- Last lipid panel < 1 year ago Prediabetes- last hemoglobin A1c > 1 year ago- Following a lower carbohydrate diet- Exercising JESSIKA on CPAP- Good adherence to CPAP use- Comfortable with CPAP pressures and mask fit- Reports improvement in alertness and quality of life Chronic low back pain- adjusts activities, looking toward water aerobics/swimming as good options -Regulatory Manager/Nursing note reviewed.- Casa Lowe MD Attn: Accounting,[address], [place], [address], [place] [facility] 11/09/2023 14:05:03 4 text/html Hypertension F/UReported bypatient.Associated Symptoms:no dizziness; no lightheadedness; no chest pain; no shortness of breath; no palpitations; no edema; no calf pain with exertion Lifestyle:regular exercise;high salt intake Medications:taking medications as directed; no side effects from medication 6+-MONTH FOLLOW-UP VISIT/SUBJECTIVE: Parvin presents for routine 6-month follow-up of hypertension and hyperlipidemia, among other chronic conditions Last routine follow-up office visit: [id number] labwork: 96Seh72 Patient reports consistent use of medications, without side effects or intolerances. Current concerns:none Health maintenance:[facility] due[facility]neumococcal [id number] - 10yrfuWell-woman exam: hysterectomyMammography: [id number]: 32Zbm30 - osteopenia Hypertension On hydrochlorothiazide, losartan Consistent use of medications Does not report any headaches, blurry vision, dizziness, chest pain, shortness of breath, or palpitations Following a low salt diet. Not exercising - Hyperlipidemia On no medication(s) at this time No side effects Following a low-cholesterol diet Last lipid panel < 1 year ago Prediabetes Last hemoglobin A1c < 1 year ago -6.5 Following a lower carbohydrate diet Exercising JESSIKA on CPAPGood adherence to CPAP useComfortable with CPAP pressures and mask fitReports improvement in alertness and quality of life Chronic low back painadjusts activities, looking toward water aerobics/swimming as good options Vitamin D Deficiency- recheck level-Regulatory Manager/Nursing note reviewed.- Casa Lowe MD Attn: Accounting,[address] [address], [address], [facility] 05/06/2024 13:18:19 4 text/html HyperlipidemiaReported bypatient.Current Therapy:currently taking: (no medication); Total cholesterol 236 HDL 77 Triglyceride 184 LDL 128 Compliance:exercises Risk Factors:hypertensionHyperte nsion F/UReported bypatient.Associated Symptoms:no dizziness; no lightheadedness; no chest pain; no shortness of breath; no palpitations; no edema; no calf pain with exertion Lifestyle:regular exercise;high salt intake Medications:taking medications as directed; no side effects from medicationRash/Skin LesionReported bypatient.Location:back Quality:itchy;red;multiple Duration:has noted for 2-3 months Context:no new detergents or skin products; no one else with similar rash;scratching Alleviating Factors:nothing gives relief Aggravating Factors:heat Associated Symptoms:no fever; no cold symptoms; no nausea; no vomiting; no diarrhea; no urinary symptoms; no chills; no fatigue; no change in weight Treatment History:no history of treatment DAO Whyte Attn: Accounting,[address] [place], [address], [place] - [facility] 11/04/2024 15:52:24 OBGyn Episode No OBEpisode recorded.
== END 2025-04-23 14:46 | disposition home or self-care (01) ==
PROVIDERS: PCP Emergency Medicine
DX: E78.5 Hyperlipidemia, unspecified (principal); I10 Essential (primary) hypertension
CPT/HCPCS: 36415; 80053; 80061; 85025

== ENCOUNTER 2025-05-19 12:11 | Outpatient (CLI) | payer MEDICARE, SELFPAY ==
--- OUTSIDE RECORDS SUMMARY | 2025-05-19 12:18 | XMS_ITS | Continuity of Care Document ---
Author Organization [facility] Address [address] [place] [address] [place] [address] Phone Care Team Providers Care Over Hauler Helper Name Role Phone Reynaga OD, Patric Unavailable Unavailable Procedures Procedure Date Eye Exam & Treatment Refraction Office/outpatient Visit, Est Office/outpatient Visit, Est Eye Exam, New Patient Advance Directives Directive Yes / No Effective Date File Name No Information Encounters Encounter Description Practice Location Reason(s) For Visit Diagnoses Date Provider Providers Copied on Encounter [facility], [address] [place] [address] [address], [place], [place], [id number], [place] tel:[phone] [facility] No Information 2-200 8 Reynaga OD Patric. [address] , [address], [place], [address], [place]. tel:[phone] Office/outpat ient Visit, [facility], [address] [place] [address] [address], [place], [place], [id number], [place] tel:[phone] [facility] No Information 1-200 7 Reynaga OD Patric. [address] , [address], [place], [address], [place]. tel:[phone] Office/outpat ient Visit, [facility], [address] [place] [address] [address], [place], [place], [id number], [place] tel:[phone] [facility] No Information Shankar-1 4-200 7 Reynaga OD Patric. [address] , [address], [place], [address], [place]. tel:[phone] [facility], [address], [place], [place], [id number], [place] tel:[phone] [facility] No Information 7 Doisy Edward. [address] , [address], [place], [address], [place]. tel:[phone] Family History Family Member Type Diagnosis Age At Onset No Information Payers Payer name Insurance type Covered alliance party ID Authorroxannedoris delphinebernard(s) [facility] Custom Care [id number] Social History Type Description Quantity Date Captured [...]
--- OUTSIDE RECORDS SUMMARY | 2025-05-19 12:18 | XMS_ITS | Data Portability ---
Author Organization [facility] Address [address] [facility] [place] [address] Assessment No assessment recorded. Plan of Treatment Reminders Order Date Submit Date Provider Last Modified By Organization Details Last Modified Time Details Appointments MEDICARE WELLNESS VISIT 2024 02:30P M DAO Whyte Not available Not available Not available Lab lipid panel, serum 2023 024 [facility], [address], [place], [address], 11/05/2024 22:16:13 HbA1c (hemoglob in A1c), blood 2023 024 DANIEL In-Office Order, Internal Use Only DO Not Attach Compendium DO Not Attach Compendium, Do Not Delete/merge, [id number] 11/04/2024 16:51:48 CBC w/ auto diff 2023 024 [facility], [address], [address], [place], [address], 11/05/2024 22:16:16 CMP, serum or plasma 2023 024 [facility], [address], [address], [place], [address], 11/05/2024 22:16:14 hemoglobi n A1c, QN, blood 2023 024 [facility], [address], [address], [place], [address], 05/27/2024 14:11:10 CMP, serum or plasma [facility]23 024 [facility] [address], [address], [place], [address], 05/08/2024 02:32:00 magnesium , serum or plasma 2023 024 [facility], [address], [address], [place], [address], 05/08/2024 02:32:00 vitamin D, 25-hydrox y, total, serum 2023 024 [facility], [address], [address], [place], [address], 05/08/2024 02:32:01 hemoglobi n A1c, QN, blood 2022 023 [facility], [address], [address], [place], [address], 11/09/2023 13:48:55 CMP, serum or plasma 2022 023 [facility], [address], [address], [place], [address], 11/10/2023 12:32:11 CBC w/ auto diff 2022 023 [facility] [address], [address], [place], [address], 11/10/2023 12:32:11 magnesium , serum or plasma 2022 023 [facility], [address], [address], [place], [address], 11/10/2023 12:32:10 lipid panel, serum 2022 023 [facility], [address], [address], [place], [address], 11/10/2023 12:32:09 vitamin D, 25-hydrox y, total, serum 2022 023 [facility], [address], [address], [place], [address], 11/10/2023 12:32:12 CMP, serum or plasma 2022 023 [facility] (Lab), [address], [address], 11/16/2023 16:54:20 CBC w/ auto diff 2022 023 [facility] (Lab), [address] [place] [address], [address], 11/16/2023 16:54:20 magnesium , serum or plasma 2022 023 [facility] (Lab), [facility] [address], [address], 11/16/2023 16:54:20 lipid panel, serum 2022 023 [facility] (Lab), [address], [address], 11/16/2023 16:54:20 HbA1c (hemoglob in A1c), blood 2022 023 [facility] (Lab), [address], [address], 11/10/2023 12:32:13 BMP, serum or plasma 2022 023 [facility] (Lab), [facility] [address], [address], 12/22/2022 12:40:47 Referral None recorded. Procedures None recorded. Surgeries None recorded. Imaging DEXA 2022 023 lj [facility], [address] [facility], [place], [address], 07/10/2023 10:22:41 Medication Orders triamcino lone acetonide 0.1 % topical ointment [address] [facility]/Pharmacy #2510, [address] [place], [address], 01/01/2025 16:26:36 prednison e 20 mg tablet [address]/Pharmacy #2510, [address] [place], [address], 01/13/2024 08:26:30 azithromy donna 500 mg tablet [address]/Pharmacy #2510, [address] [place], [address], 01/13/2024 08:26:18 albuterol sulfate HFA 90 mcg/actua tion aerosol inhaler 2022 023 [facility]/Pharmacy #2510, [address] [place], [address], 05/06/2024 11:59:16 losartan 50 mg-hydroc hlorothia zide 12.[address] tablet [address] [facility]/Pharmacy #2510, [address] [place], [address], 11/09/2023 13:53:31 Patient TargetsNo targets recorded. Patient Instructions Encounter Date Encounter Id Patient Instructions Last Modified By Organization Details Last Modified Time 12/20/2022 [id number] Parvin, - Thank y goldy for your visit - Continue your current medications - I will complete your preoperative form once I have your lab and electrocardiogram results, and forward it to your surgeon - You will be called with any concerning findings - Return to clinic as scheduled, or as needed - Call with any concerns [email or web address] Not available 12/20/2022 15:22:50 04/17/2023 [id number] back care and preventing injuries: care instructions [email or web address] Not available 04/17/2023 12:08:29 sleep apnea: car e instructions [id number] Not available 04/17/2023 12:08:28 high blood press ure: care instructions [email or web address] Not available 04/17/2023 12:08:29 learning about h igh blood pressure [email or web address] Not available 04/17/2023 12:08:28 body mass index: care instructions [email or web address] Not available 04/17/2023 12:15:13 learning about healthy weight [email or web address] Not available 04/17/2023 12:15:13 Parvin, - Thank luis winslow for your [...] pneumonia. Currently, this is a single immunization, [email or web address], if you have never previously been immunized. [...] sink where they are visible to you. Not available 04/17/2023 12:08:25 11/09/2023 [id number] back care and preventing injuries: care instructions Not available 11/09/2023 13:48:21 upper respirator y infection (cold): care instructions [email or web address] Not available 11/09/2023 13:53:26 sleep apnea: car e instructions [email or web address] Not available 11/09/2023 13:48:20 learning about h igh blood pressure [id number] Not available 11/09/2023 13:48:20 body mass index: care instructions [id number] Not available 11/09/2023 13:48:20 learning about healthy weight [id number] Not available 11/09/2023 13:48:20 Parvin, - Thank y ou for your visit - Use medications as [...] pneumonia. Currently, this is a single immunization, Gjxrobv31, if you have never previously been immunized. [...] of green and leafy vegetables, including salads. [email or web address] Not available 11/09/2023 14:03:33 05/06/2024 [id number] back care and preventing injuries: care instructions [email or web address] Not available 05/06/2024 13:12:40 sleep apnea: car e instructions [email or web address] Not available 05/06/2024 13:12:40 learning about h igh blood pressure [email or web address] Not available 05/06/2024 13:12:40 body mass index: care instructions [email or web address] Not available 05/06/2024 13:12:40 learning about healthy weight [email or web address] Not available 05/06/2024 13:12:40 Parvin, - Thank y goldy for your [...] pneumonia. Currently, this is a single immunization, Wiutqiz74, if you have never previously been immunized [...] of green and leafy vegetables, including salads. [email or web address] Not available 05/06/2024 13:16:58 11/04/2024 [id number] A healthy lifest yle: care instructions [email or web address] Not available 11/04/2024 15:27:49 Reason for Referral None Reported. Results Created Date Observation Date Name Description Value Unit Range Abnormal Flag Note LastModifiedBy Organization Detail LastModifiedTime 11/09/2011/10/2023 LIPID PANEL , STAND RICCARDO cholesterol, total 236 mg/dL <200 high Not Available Levels [facility] - [place] [address] [address] [place], [address], 11/10/2023 12:32:09 11/09/20 23 11/10/2023 LIPID PANEL , STAND RICCARDO HDL cholesterol 77 mg/dL > or = 50 normal Not Available [address] [address] [place], [address], 11/10/2023 12:32:09 11/09/20 23 11/10/2023 LIPID PANEL , STAND RICCARDO triglyceride s 184 mg/dL <150 high Not Available [facility] [address] [address] [place], [address], 11/10/2023 12:32:09 11/09/20 23 11/10/2023 LIPID PANEL [...] calcu lated using the Jaja n-Hop kins ralphu anum n, which is a valid ated novel josafat barajas than the Fried anastasiya equat ion in the estim ation of LDL-C . Jaja arriaga SS et al. CECE. 2013; 310(1 9): 2061- 2068 (http ://ed ucati on.Jeevan trujillo Retroficiency. com/f aq/FA Q164) Not Available [address] [address] [place], [address], 11/10/2023 12:32:09 11/09/20 23 11/10/2023 LIPID PANEL , STAND RICCARDO chol/HDLC ratio 3.1 (calc ) <5.0 normal Not Available [address] [address] [place], [address], 11/10/2023 12:32:09 11/09/20 23 11/10/2023 LIPID PANEL , STAND RICCARDO non HDL cholesterol 159 mg/dL _(tiny c) <130 high For patie nts with diabe amanda plus 1 major ASCVD risk facto r, treat ing to a non-H DL-C goal of <100 mg/dL (LDL- C of <70 mg/dL ) is dina zee optio n. Not Available [address], [address], 11/10/2023 12:32:09 11/09/20 23 11/10/2023 MAGNE SIUM magnesium 1.6 mg/dL 1.5-2. 5 normal Not Available [address], [address], 11/10/2023 12:32:10 11/09/20 23 11/10/2023 COMPR EHENS KAREN METAB OLIC PANEL glucose 98 mg/dL 65-99 normal Fasti ng refer ence inter arjun Not Available [address] [address] [place], [address], 11/10/2023 12:32:11 11/09/20 23 11/10/2023 COMPR EHENS KAREN METAB OLIC PANEL urea nitrogen (BUN) 14 mg/dL 7-25 normal Not Available [address], [address], 11/10/2023 12:32:11 11/09/20 23 11/10/2023 COMPR EHENS KAREN METAB OLIC PANEL creatinine 0.72 mg/dL 0.50-1 .05 normal Not Available [address] [address] [place], [address], 11/10/2023 12:32:11 11/09/20 23 11/10/2023 COMPR EHENS KAREN METAB OLIC PANEL eGFR 92 mL/mi n/1.7 3m2 > or = 60 normal Not Available [address] [address] [place], [address], 11/10/2023 12:32:11 11/09/20 23 11/10/2023 COMPR EHENS KAREN METAB OLIC PANEL BUN/creatini ne ratio SEE NOTE: (calc ) 6-22 Not Repor eddie: BUN and Creat inine are withi n refer ence range . Not Available [address] [address] [place], [address], 11/10/2023 12:32:11 11/09/20 23 11/10/2023 COMPR EHENS KAREN METAB OLIC PANEL sodium 139 mmol/ L 135-14 6 normal Not Available [address], [address], 11/10/2023 12:32:11 11/09/20 23 11/10/2023 COMPR EHENS KAREN METAB OLIC PANEL potassium 4.0 mmol/ L 3.5-5. 3 normal Not Available [address], [address], 11/10/2023 12:32:11 11/09/20 23 11/10/2023 COMPR EHENS KAREN METAB OLIC PANEL chloride 105 mmol/ L 98-110 normal Not Available [address], [address], 11/10/2023 12:32:11 11/09/20 23 11/10/2023 COMPR EHENS KAREN METAB OLIC PANEL carbon dioxide 24 mmol/ L 20-32 normal Not Available [address], [address], 11/10/2023 12:32:11 11/09/20 23 11/10/2023 COMPR EHENS KAREN METAB OLIC PANEL calcium 9.7 mg/dL 8.6-10 .4 normal Not Available [address], [address], 11/10/2023 12:32:11 11/09/20 23 11/10/2023 COMPR EHENS KAREN METAB OLIC PANEL protein, total 7.3 g/dL 6.1-8. 1 normal Not Available [address], [address], 11/10/2023 12:32:11 11/09/20 23 11/10/2023 COMPR EHENS KAREN METAB OLIC PANEL albumin 4.1 g/dL 3.6-5. 1 normal Not Available [address], [address], 11/10/2023 12:32:11 11/09/20 23 11/10/2023 COMPR EHENS KAREN METAB OLIC PANEL globulin 3.2 g/dL_ (calc ) 1.9-3. 7 normal Not Available [address], [address], 11/10/2023 12:32:11 11/09/20 23 11/10/2023 COMPR EHENS KAREN METAB OLIC PANEL albumin/glob ulin ratio 1.3 (calc ) 1.0-2. 5 normal Not Available [address], [address], 11/10/2023 12:32:11 11/09/20 23 11/10/2023 COMPR EHENS KAREN METAB OLIC PANEL bilirubin, total 0.4 mg/dL 0.2-1. 2 normal Not Available [address], [address], 11/10/2023 12:32:11 11/09/20 23 11/10/2023 COMPR EHENS KAREN METAB OLIC PANEL alkaline phosphatase 84 U/L 37-153 normal Not Available [facility] [address], [address], 11/10/2023 12:32:11 11/09/20 23 11/10/2023 COMPR EHENS KAREN METAB OLIC PANEL AST 89 U/L 10-35 high Not Available [address], [address], 11/10/2023 12:32:11 11/09/20 23 11/10/2023 COMPR EHENS KAREN METAB OLIC PANEL ALT 70 U/L 6-29 high Not Available [address], [address], 11/10/2023 12:32:11 11/09/20 23 11/10/2023 CBC (INCL UDES DIFF/ PLT) white blood cell count 6.6 thous and/u L 3.8-10 .8 normal Not Available [address], [address], 11/10/2023 12:32:11 11/09/20 23 11/10/2023 CBC (INCL UDES DIFF/ PLT) red blood cell count 4.10 konrad on/uL 3.80-5 .10 normal Not Available [address], [address], 11/10/2023 12:32:11 11/09/20 23 11/10/2023 CBC (INCL UDES DIFF/ PLT) hemoglobin 13.3 g/dL 11.7-1 5.5 normal Not Available [address], [address], 11/10/2023 12:32:11 11/09/20 23 11/10/2023 CBC (INCL UDES DIFF/ PLT) hematocrit 37.9 % 35.0-4 5.0 normal Not Available [address], [address], 11/10/2023 12:32:11 11/09/20 23 11/10/2023 CBC (INCL UDES DIFF/ PLT) MCV 92.4 fL 80.0-1 00.0 normal Not Available [address], [address], 11/10/2023 12:32:11 11/09/20 23 11/10/2023 CBC (INCL UDES DIFF/ PLT) MCH 32.4 pg 27.0-3 3.0 normal Not Available [address], [address], 11/10/2023 12:32:11 11/09/20 23 11/10/2023 CBC (INCL UDES DIFF/ PLT) MCHC 35.1 g/dL 32.0-3 6.0 normal Not Available [address], [address], 11/10/2023 12:32:11 11/09/20 23 11/10/2023 CBC (INCL UDES DIFF/ PLT) RDW 12.6 % 11.0-1 5.0 normal Not Available [address], [address], 11/10/2023 12:32:11 11/09/20 23 11/10/2023 CBC (INCL UDES DIFF/ PLT) platelet count 253 thous and/u L 140-40 0 normal Not Available [address], [address], 11/10/2023 12:32:11 11/09/20 23 11/10/2023 CBC (INCL UDES DIFF/ PLT) MPV 10.7 fL 7.5-12 .5 normal Not Available [address], [address], 11/10/2023 12:32:11 11/09/20 23 11/10/2023 CBC (INCL UDES DIFF/ PLT) absolute neutrophils 3742 cells /uL 1500-7 800 normal Not Available [address], [address], 11/10/2023 12:32:11 11/09/20 23 11/10/2023 CBC (INCL UDES DIFF/ PLT) absolute lymphocytes 2000 cells /uL 850-39 00 normal Not Available [address], [address], 11/10/2023 12:32:11 11/09/20 23 11/10/2023 CBC (INCL UDES DIFF/ PLT) absolute monocytes 594 cells /uL 200-95 0 normal Not Available [address] [place], [address], 11/10/2023 12:32:11 11/09/20 23 11/10/2023 CBC (INCL UDES DIFF/ PLT) absolute eosinophils 211 cells /uL 15-500 normal Not Available [facility] [address], [address], 11/10/2023 12:32:11 11/09/20 23 11/10/2023 CBC (INCL UDES DIFF/ PLT) absolute basophils 53 cells /uL 0-200 normal Not Available [address], [address], 11/10/2023 12:32:11 11/09/20 23 11/10/2023 CBC (INCL UDES DIFF/ PLT) neutrophils 56.7 % normal Not Available [address], [address], 11/10/2023 12:32:11 11/09/20 23 11/10/2023 CBC (INCL UDES DIFF/ PLT) lymphocytes 30.3 % normal Not Available [address], [address], 11/10/2023 12:32:11 11/09/20 23 11/10/2023 CBC (INCL UDES DIFF/ PLT) monocytes 9.0 % normal Not Available [facility] [address], [address], 11/10/2023 12:32:11 11/09/20 23 11/10/2023 CBC (INCL UDES DIFF/ PLT) eosinophils 3.2 % normal Not Available [facility] [address] [place], [address], 11/10/2023 12:32:11 11/09/20 23 11/10/2023 CBC (INCL UDES DIFF/ PLT) basophils 0.8 % normal Not Available [address] [address] [place], [address], 11/10/2023 12:32:11 11/09/20 23 11/10/2023 VITAM IN [...] /MS is recom cristino d: order code 29992 (catherine ents >2yrs ). See Note 1 Note 1 For addit ional infor marco mir e refer to http: //luana [place] stDia gnost ics.c om/fa q/FAQ 199 (This link is being provi ded for infor raven coyne/ anderson barrera purpo ses only. ) Not Available [facility] [address] [address] [place], [address], 11/10/2023 12:32:12 11/09/20 23 11/10/2023 HEMOG LOBIN [...] diabe amanda for child kadie. Not Available [facility] [address] [place], [address], 11/10/2023 12:32:13 05/06/2005/08/2024 MAGNE SIUM magnesium 1.5 mg/dL 1.5-2. 5 normal Not Available [facility] [address] [place], [address], 05/08/2024 02:31:59 05/06/20 24 05/08/2024 COMPR EHENS KAREN METAB OLIC PANEL glucose 245 mg/dL 65-99 high Fasti ng refer ence inter arjun For someo ne witho ut known diabe amanda, a gluco se value >125 mg/dL indic ates that they may have diabe amanda and this shoul d be confi rmed with a follo w-up test. Not Available [facility] [address] [address] [place], [address], 05/08/2024 02:32:00 05/06/20 24 05/08/2024 COMPR EHENS KAREN METAB OLIC PANEL urea nitrogen (BUN) 12 mg/dL 7-25 normal Not Available [facility] [address] [address] [place], [address], 05/08/2024 02:32:00 05/06/20 24 05/08/2024 COMPR EHENS KAREN METAB OLIC PANEL creatinine 0.65 mg/dL 0.50-1 .05 normal Not Available [facility] [address] [address] [place], [address], 05/08/2024 02:32:00 05/06/20 24 05/08/2024 COMPR EHENS KAREN METAB OLIC PANEL eGFR 96 mL/mi n/1.7 3m2 > or = 60 normal Not Available [address], [address], 05/08/2024 02:32:00 05/06/20 24 05/08/2024 COMPR EHENS KAREN METAB OLIC PANEL BUN/creatini ne ratio SEE NOTE: (calc ) 6-22 Not Repor eddie: BUN and Creat inine are withi n refer ence range . Not Available [address], [address], 05/08/2024 02:32:00 05/06/20 24 05/08/2024 COMPR EHENS KAREN METAB OLIC PANEL sodium 134 mmol/ L 135-14 6 low Not Available [address], [address], 05/08/2024 02:32:00 05/06/20 24 05/08/2024 COMPR EHENS KAREN METAB OLIC PANEL potassium 4.0 mmol/ L 3.5-5. 3 normal Not Available [address], [address], 05/08/2024 02:32:00 05/06/20 24 05/08/2024 COMPR EHENS KAREN METAB OLIC PANEL chloride 103 mmol/ L 98-110 normal Not Available [address], [address], 05/08/2024 02:32:00 05/06/20 24 05/08/2024 COMPR EHENS KAREN METAB OLIC PANEL carbon dioxide 18 mmol/ L 20-32 low Not Available [address], [address], 05/08/2024 02:32:00 05/06/20 05/08/2024 COMPR EHENS KAREN METAB OLIC PANEL calcium 10.0 mg/dL 8.6-10 .4 normal Not Available [address], [address], 05/08/2024 02:32:00 05/06/20 24 05/08/2024 COMPR EHENS KAREN METAB OLIC PANEL protein, total 7.5 g/dL 6.1-8. 1 normal Not Available [address], [address], 05/08/2024 02:32:00 05/06/2005/08/2024 COMPR EHENS KAREN METAB OLIC PANEL albumin 4.1 g/dL 3.6-5. 1 normal Not Available [address], [address], 05/08/2024 02:32:00 05/06/20 24 05/08/2024 COMPR EHENS KAREN METAB OLIC PANEL globulin 3.4 g/dL_ (calc ) 1.9-3. 7 normal Not Available [address], [address], 05/08/2024 02:32:00 05/06/20 24 05/08/2024 COMPR EHENS KAREN METAB OLIC PANEL albumin/glob ulin ratio 1.2 (calc ) 1.0-2. 5 normal Not Available [address], [address], 05/08/2024 02:32:00 05/06/20 24 05/08/2024 COMPR EHENS KAREN METAB OLIC PANEL bilirubin, total 0.4 mg/dL 0.2-1. 2 normal Not Available [address], [address], 05/08/2024 02:32:00 05/06/20 24 05/08/2024 COMPR EHENS KAREN METAB OLIC PANEL alkaline phosphatase 97 U/L 37-153 normal Not Available [facility] [address] [address] [address], [place], [address], 05/08/2024 02:32:00 05/06/20 24 05/08/2024 COMPR EHENS KAREN METAB OLIC PANEL AST 89 U/L 10-35 high Not Available [facility] [address] [address] [place], [address], 05/08/2024 02:32:00 05/06/20 24 05/08/2024 COMPR EHENS KAREN METAB OLIC PANEL ALT 102 U/L 6-29 high Not Available [facility] [address] [address] [place], [address], 05/08/2024 02:32:00 05/06/20 24 05/08/2024 VITAM IN [...] /MS is recom cristino d: order code 56496 (catherine ents >2yrs ). See Note 1 Note 1 For addit ional infor marco mir refer to http: //luana Kimbrough gnost ics.c om/fa q/FAQ 199 (This link is being provi ded for infor raven coyne/ anderson barrera purpo ses only. ) Not Available [facility] [address] [address] [address], [place], [address], 05/08/2024 02:32:01 05/06/20 05/08/2024 HEMOG LOBIN A1C hemoglobin A1C 7.1 [...] This test was perfo rmed on the [facility] c503 platf orm. Effec tive , a castillo e in test platf orms from the [facility] to the [facility] c503 may have shift ed HbA1c resul ts nisreen red to histo rical resul ts. Based on labor atory valid ation testi ng condu cted at [facility] , the [facility] platf orm relat karen to the [facility] platf orm had an avera ge incre [...] is not recom cristino d. Not Available [facility] [address] [address], [place], [address], 05/08/2024 02:32:02 11/04/20 24 11/05/2024 LIPID PANEL , STAND RICCARDO cholesterol, total 204 mg/dL <200 high Not Available [facility] [address] [address] [place], [address], 11/05/2024 22:16:13 11/04/20 24 11/05/2024 LIPID PANEL , STAND RICCARDO HDL cholesterol 84 mg/dL > or = 50 normal Not Available [facility] [address] [place], [address], 11/05/2024 22:16:13 11/04/20 24 11/05/2024 LIPID PANEL , STAND RICCARDO triglyceride s 92 mg/dL <150 normal Not Available [facility] [address] [address] [place], [address], 11/05/2024 22:16:13 11/04/2011/05/2024 LIPID PANEL , STAND RICCARDO LDL-choleste rol 101 mg/dL _(tiny c) high Refer ence range : <100 Babita able range <100 mg/dL for prima ry preve ntion ; <70 mg/dL for patie nts with CHD or diabe tic patie nts with > or = 2 CHD risk facto rs. LDL-C is now calcu lated using the Jaja arriaga-Hop kins paula rowan n, which is a valid ated novel josafat walter r accur acy than the Fried anastasiya equat ion in the estim ation of LDL-C . Jaja arriaga SS et al. CECE. 2013; 310(1 9): 2061- 2068 (http ://ed ucati on.Qu Brittany trujillo InternetVistas. com/f aq/FA Q164) Not Available [facility] [address] [place], [address], 11/05/2024 22:16:13 11/04/20 24 11/05/2024 LIPID PANEL , STAND RICCARDO chol/HDLC ratio 2.4 (calc ) <5.0 normal Not Available [facility] [address] [place], [address], 11/05/2024 22:16:13 11/04/20 24 11/05/2024 LIPID PANEL , STAND RICCARDO non HDL cholesterol 120 mg/dL _(tiny c) <130 normal For patie nts with diabe amanda plus 1 major ASCVD risk facto r, treat ing to a non-H DL-C goal of <100 mg/dL (LDL- C of <70 mg/dL ) is dina zee optio n. Not Available [address] [address] [place], [address], 11/05/2024 22:16:13 11/04/20 24 11/05/2024 COMPR EHENS KAREN METAB OLIC PANEL glucose 91 mg/dL 65-99 normal Fasti ng refer ence inter arjun Not Available [address] [address] [place], [address], 11/05/2024 22:16:14 11/04/20 24 11/05/2024 COMPR EHENS KAREN METAB OLIC PANEL urea nitrogen (BUN) 23 mg/dL 7-25 normal Not Available [address] [address] [place], [address], 11/05/2024 22:16:14 11/04/20 24 11/05/2024 COMPR EHENS KAREN METAB OLIC PANEL creatinine 0.90 mg/dL 0.50-1 .05 normal Not Available [address] [place], [address], 11/05/2024 22:16:14 11/04/20 24 11/05/2024 COMPR EHENS KAREN METAB OLIC PANEL eGFR 70 mL/mi n/1.7 3m2 > or = 60 normal Not Available [address], [address], 11/05/2024 22:16:14 11/04/20 24 11/05/2024 COMPR EHENS KAREN METAB OLIC PANEL BUN/creatini ne ratio SEE NOTE: (calc ) 6-22 Not Repor eddie: BUN and Creat inine are withi n refer ence range . Not Available [facility] [address] [address] [place], [address], 11/05/2024 22:16:14 11/04/20 24 11/05/2024 COMPR EHENS KAREN METAB OLIC PANEL sodium 136 mmol/ L 135-14 6 normal Not Available [address] [place], [address], 11/05/2024 22:16:14 11/04/20 24 11/05/2024 COMPR EHENS KAREN METAB OLIC PANEL potassium 5.0 mmol/ L 3.5-5. 3 normal Not Available [address], [address], 11/05/2024 22:16:14 11/04/20 24 11/05/2024 COMPR EHENS KAREN METAB OLIC PANEL chloride 100 mmol/ L 98-110 normal Not Available [address] [address] [place], [address], 11/05/2024 22:16:14 11/04/20 24 11/05/2024 COMPR EHENS KAREN METAB OLIC PANEL carbon dioxide 26 mmol/ L 20-32 normal Not Available [address] [address] [place], [address], 11/05/2024 22:16:14 11/04/20 24 11/05/2024 COMPR EHENS KAREN METAB OLIC PANEL calcium 10.6 mg/dL 8.6-10 .4 high Not Available [facility] [address] [address] [place], [address], 11/05/2024 22:16:14 11/04/20 24 11/05/2024 COMPR EHENS KAREN METAB OLIC PANEL protein, total 7.9 g/dL 6.1-8. 1 normal Not Available [address] [place], [address], 11/05/2024 22:16:14 11/04/20 24 11/05/2024 COMPR EHENS KAREN METAB OLIC PANEL albumin 4.6 g/dL 3.6-5. 1 normal Not Available [address], [address], 11/05/2024 22:16:14 11/04/20 24 11/05/2024 COMPR EHENS KAREN METAB OLIC PANEL globulin 3.3 g/dL_ (calc ) 1.9-3. 7 normal Not Available [address], [address], 11/05/2024 22:16:14 11/04/20 24 11/05/2024 COMPR EHENS KAREN METAB OLIC PANEL albumin/glob ulin ratio 1.4 (calc ) 1.0-2. 5 normal Not Available [address], [address], 11/05/2024 22:16:14 11/04/20 24 11/05/2024 COMPR EHENS KAREN METAB OLIC PANEL bilirubin, total 0.4 mg/dL 0.2-1. 2 normal Not Available [address], [address], 11/05/2024 22:16:14 11/04/20 24 11/05/2024 COMPR EHENS KAREN METAB OLIC PANEL alkaline phosphatase 93 U/L 37-153 normal Not Available [address], [address], 11/05/2024 22:16:14 11/04/20 24 11/05/2024 COMPR EHENS KAREN METAB OLIC PANEL AST 20 U/L 10-35 normal Not Available [address], [address], 11/05/2024 22:16:14 11/04/20 24 11/05/2024 COMPR EHENS KAREN METAB OLIC PANEL ALT 20 U/L 6-29 normal Not Available [address], [address], 11/05/2024 22:16:14 11/04/20 24 11/05/2024 CBC (INCL UDES DIFF/ PLT) white blood cell count 6.2 thous and/u L 3.8-10 .8 normal Not Available [address], [address], 11/05/2024 22:16:16 11/04/20 24 11/05/2024 CBC (INCL UDES DIFF/ PLT) red blood cell count 4.59 konrad on/uL 3.80-5 .10 normal Not Available [address], [address], 11/05/2024 22:16:16 11/04/20 24 11/05/2024 CBC (INCL UDES DIFF/ PLT) hemoglobin 14.3 g/dL 11.7-1 5.5 normal Not Available [address], [address], 11/05/2024 22:16:16 11/04/20 24 11/05/2024 CBC (INCL UDES DIFF/ PLT) hematocrit 42.7 % 35.0-4 5.0 normal Not Available [address], [address], 11/05/2024 22:16:16 11/04/20 24 11/05/2024 CBC (INCL UDES DIFF/ PLT) MCV 93.0 fL 80.0-1 00.0 normal Not Available [address], [address], 11/05/2024 22:16:16 11/04/20 24 11/05/2024 CBC (INCL UDES DIFF/ PLT) MCH 31.2 pg 27.0-3 3.0 normal Not Available [address], [address], 11/05/2024 22:16:16 11/04/20 24 11/05/2024 CBC (INCL UDES DIFF/ PLT) MCHC 33.5 g/dL 32.0-3 6.0 normal For adult s, a sligh t decre ase in the calcu lated MCHC value (in the range of 30 to 32 g/dL) is most likel y not clini keara signi rosalie t; rich er, it shoul d be inter prete d with cauti on in corre latio n with other red cell corbin eters and the patie nt's clini tiny condi tion. Not Available [facility] [address], [address], 11/05/2024 22:16:16 11/04/20 24 11/05/2024 CBC (INCL UDES DIFF/ PLT) RDW 12.9 % 11.0-1 5.0 normal Not Available [facility] [address], [address], 11/05/2024 22:16:16 11/04/20 24 11/05/2024 CBC (INCL UDES DIFF/ PLT) platelet count 308 thous and/u L 140-40 0 normal Not Available [address], [address], 11/05/2024 22:16:16 11/04/20 24 11/05/2024 CBC (INCL UDES DIFF/ PLT) MPV 11.1 fL 7.5-12 .5 normal Not Available [facility] [address], [address], 11/05/2024 22:16:16 11/04/20 24 11/05/2024 CBC (INCL UDES DIFF/ PLT) absolute neutrophils 3404 cells /uL 1500-7 800 normal Not Available [facility] [address], [address], 11/05/2024 22:16:16 11/04/20 24 11/05/2024 CBC (INCL UDES DIFF/ PLT) absolute lymphocytes 2065 cells /uL 850-39 00 normal Not Available [address], [address], 11/05/2024 22:16:16 11/04/20 24 11/05/2024 CBC (INCL UDES DIFF/ PLT) absolute monocytes 546 cells /uL 200-95 0 normal Not Available [address], [address], 11/05/2024 22:16:16 11/04/20 24 11/05/2024 CBC (INCL UDES DIFF/ PLT) absolute eosinophils 149 cells /uL 15-500 normal Not Available [address] [place], [address], 11/05/2024 22:16:16 11/04/20 24 11/05/2024 CBC (INCL UDES DIFF/ PLT) absolute basophils 37 cells /uL 0-200 normal Not Available [facility] [address] [place], [address], 11/05/2024 22:16:16 11/04/20 24 11/05/2024 CBC (INCL UDES DIFF/ PLT) neutrophils 54.9 % normal Not Available [address], [address], 11/05/2024 22:16:16 11/04/20 24 11/05/2024 CBC (INCL UDES DIFF/ PLT) lymphocytes 33.3 % normal Not Available [address], [address], 11/05/2024 22:16:16 11/04/20 24 11/05/2024 CBC (INCL UDES DIFF/ PLT) monocytes 8.8 % normal Not Available [facility] [address] [place], [address], 11/05/2024 22:16:16 11/04/20 11/05/2024 CBC (INCL UDES DIFF/ PLT) eosinophils 2.4 % normal Not Available [facility] [address] [place], [address], 11/05/2024 22:16:16 11/04/20 24 11/05/2024 CBC (INCL UDES DIFF/ PLT) basophils 0.6 % normal Not Available [facility] [address] [place], [address], 11/05/2024 22:16:16 11/04/20 24 11/04/2024 HbA1c (hemo globi n A1c), blood HbA1c 5.5 Not Available In-Office Order Internal Use Only DO Not Attach Compendium DO Not Attach Compendium, Do Not Delete/merge, [id number] 11/04/2024 11:16:44 11/29/19 23 11/23/2022 US, echoc ardio gram No observ ation record ed. [email or web address] [facility] [address] [place] [address] [address], [place], [address], 12/04/2022 22:30:11 12/26/19 23 11/23/2022 , echoc ardio gram No observ ation record ed. [email or web address] [facility] [address] [facility] [address], [place], [address], 12/26/2022 13:56:04 12/29/19 surg xr foot lt 2V [facility] [address] [facility] [place] [address] Intrao perati ve fluoro scopic views of the left foot Access ion: [id number] Histor y: Left foot pain Dose: [...] By: Faisal robert MD, 023 1:56 PM [email or web address] [facility] [address], [place], [address], 01/01/2023 14:52:02 05/30/20 23 bone densi ty/de xa [facility] ONE [facility] [place] [address] EXAMIN ATION: BONE DENSIT Y/DEXA ACCESS ION: [id number] INDICA TIONS: evalua tion for osteop [...] ly Signed By: Adelfo Parra MD on 023 10:47 AM Interp reted By: Adelfo Parra MD, 023 10:45 AM [email or web address] [facility] [address] [facility], [place], [address], 06/05/2023 12:06:18 05/30/20 23 MAMMO , scree jose a, tomos ynthe sis, bilat eral [facility] [place] [address] This is a summar y report . The comple te report is availa ble in the patien t's medica l record . If you cannot access the medica l record , please contac t the sendin susan lee for a detail ed fax or copy. EXAMIN ATION: Digita l bilate ral screen ing mammog pamela with 3-D tomosy nthesi s ACCESS ION: [id number] EXAM DATE/T ILIANA: 023 11:10 AM REASON FOR EXAM: visit for screen ing mammo COMPAR TANIA: May 2022, May 2021, May 2016 TECHNI QUE: Digita l screen ing mammog matt of both breast s was perfor med in additi on to 3-D Tomosy nthesi s techni que. This study was read with the assist ance of a [employer] er-aid ed detect ion system . TISSUE [...] ====== ====== Ordere d By: CIELO ALSTON [facility] onical ly Signed By: Asher barrera MD on 023 12:16 PM Interp reted By: Asher barrera MD, 023 12:[address], [address], 06/20/2023 09:57:45 05/30/20 23 05/30/2023 MAMMO , scree jose a, bilat eral No observ ation record ed. [email or web address] [address], [place], [address], 06/05/2023 12:06:42 Result Notes Documentation Provider Name and Address Organization Details Recorded Time Mammo, Screening, Tomosynthesis, Bilateral : [place] [address] This is a summary report. The complete report is available in the patient's medical record. If you cannot access the medical record, please contact the sending organization for a detailed fax or copy. EXAMINATION: Digital bilateral screening mammogram with 3-D tomosynthesis EXAM DATE/TIME: 05/30/2023 11:10 AM REASON FOR EXAM: visit for screening mammo COMPARISON: May 2022, May 2021, May 2016 TECHNIQUE: Digital screening mammography of both breasts was performed in addition to 3-D Tomosynthesis technique. This study was read with the assistance of a computer-aided detection system. TISSUE DENSITY: There are scattered areas of fibroglandular density. FINDINGS: No suspicious masses, malignant appearing calcifications, skin thickening or other abnormalities are present. No significant change from the prior exam. =====IMPRESSION:===== No mammographic findings suggestive of malignancy ASSESSMENT: ACR BI-RADS 2 - BENIGN FINDING(S) Recommendation: 1: Routine Screening Bilateral COMMENTS: Ordered By: CIELO ALSTON Interpreted By: Asher James MD, 05/30/2023 12:15 PM [place], [place] - [place] 06/20/2023 09:57:45 Problems Name Problem SNOMED Code Status Onset Date Resolution Date Notes Provider Name and Address Organization Details Recorded Time Prediabetes 779748455 Active 2018 Casa Lowe MD Attn: Abigail [email or web address] [place], [address], [facility] - [place] 3 11:22:06 Body mass index 30+ - obesity 368240848 Active 2022 Casa Lowe MD Attn: Abigail davis,[address] [place], [address], [facility] - [place] 3 14:08:22 Long-term drug therapy Active 2022 Casa Lowe MD Attn: Abigail davis,[address] [facility], [place], [address], [place] - [facility] 3 14:08:29 Sesamoiditi s 77193663 Completed 202201/13/2024 Casa Lowe MD Attn: Abigail susan,[address] [facility], [place], [address], [place] [facility] 4 08:27:15 Osteopenia 934569493 Active 2022 Casa Lowe MD Attn: Abigail susan,[address] [facility], [place], [address], [place] [facility] 3 13:47:51 Asthmatic bronchitis 557030324 Active 2022 Casa Lowe MD Attn: Abigail davis,[address] [facility], [place], [address], [place] [facility] 3 13:50:47 Liver enzymes level above reference range 102469571 Active 2023 Casa Lowe MD Attn: Abigail davis,[address] [facility], [place], [address], [place] [facility] 4 16:28:08 Vitamin D deficiency 50518285 Active 2023 Casa Lowe MD Attn: Abigail davis,[address] [facility], [place], [address], [place] [facility] 4 08:27:29 Low back pain 891422361 Active 2013 Casa Lowe MD Attn: Abigail davis,[address] [facility], [place], [address], [place] [facility] 3 11:21:17 Spinal stenosis of lumbar region 86512980 Active 2013 Casa Lowe MD Attn: Abigail davis,[address] [facility], [place], [address], [place] [facility] 3 11:21:40 Neurogenic claudicatio n 393974247 Active 2013 Casa Lowe MD Attn: Abigail davis,[address] [facility], [place], [address], [place] [facility] 3 11:21:24 Benign essential hypertensio n 2436457 Active 2014 Casa Lowe MD Attn: Heidylarry davis,[address] 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, [place], [address], [place] [facility] 3 11:21:32 Hypersomnia with sleep apnea 24264432 Completed 201306/05/2014 Casa Lowe MD Attn: Abigail davis,[address] [facility], [place], [address], [place] - [facility] 3 11:32:16 Screening for malignant neoplasm of colon Completed 201404/17/2023 Casa Lowe MD Attn: Heidylarry davis,[address] [facility], [place], [address], [place] - [facility] 3 11:22:20 Obstructive sleep apnea syndrome 74041252 Active 2015 Casa Lowe MD Attn: Abigail davis,[address] [facility], [place], [address], [place] - [facility] 3 11:21:28 Mixed hyperlipide yahir 234858403 Active 2015 Casa Lowe MD Attn: Abigail davis,[address] [facility], [place], [address], [place] - [facility] 3 11:21:20 Problem Notes None recorded. Procedures Surgical History Date Name Laterality Status Provider Name and Address Organization Details Recorded Time Hysterectomy completed [facility]id[facility] 10/18/2016 11:03:04 Imaging Results None recorded. Procedure Notes None recorded. Medical Equipment None Reported. Allergies Allergen ID Allergen Name Allergen Category Reaction Reaction Severity Criticality Documentation Date Start Date Code Code System Note Provider Name and Address Organization Details Recorded Time 12544 Non-stero idal anti-infl ammatory agent (product) medicatio n Not available Not available Not available 10/18/2016 35763 005 SNOMED Nidhi [place], [place] - [facility] 6 11:19:10 Medications Name Sig Start Date Stop Date Status Note LastModified by Organization Details LastModified Time losartan 50 mg tablet Take 1 tablet(s) by mouth daily 10/18 completed Not Available Not Available Not Available doxycycline hyclate 100 mg capsule TAKE 1 CAPSULE BY MOUTH TWICE A DAY 12/20 completed Not Available Not Available Not Available atorvastati n 10 mg tablet TAKE 1 TABLET BY MOUTH EVERY DAY 2024 active Not Available Not Available Not Avai lable ibuprofen 800 mg tablet TAKE 1 TABLET [...] one PO daily 06/22 completed RxNor m: 96218 7;All ow Subst ituti on: True Not [...] 8 hours prn 11/05 completed RxNor m: 02809 6;All ow Subst ituti on: True Not [...] TAKE 1 TABLET BY MOUTH EVERY DAY active Not Available Not Available No t Available azithromyci n 500 mg tablet TAKE 1 [...] blood by Pulse oximetry Heart rate Systolic And Diastolic Provider Name and Address Organization Details Last Updated DateTime 3 157.48 cm 35.5 kg/m2 88302.9 7 g 97.3 [degF] 98 % 98 % 60 /min 126/78 mm[Hg] Dieudonne Hernandez MA [facility] 3 14:36:30 Date Recorded Body height Body mass index (BMI) Body weight Body temperature Oxygen saturation Oxygen saturation in Arterial blood by Pulse oximetry Heart rate Systolic And Diastolic Provider Name and Address Organization Details Last Updated DateTime 3 157.48 cm 37.2 kg/m2 23113.9 5 g 97 [degF] 95 % 95 % 62 /min 151/82 mm[Hg] Estela Polanco MA [facility] 3 11:10:40 Date Recorded Body height Body temperature Heart rate Oxygen saturation Oxygen saturation in Arterial blood by Pulse oximetry Body mass index (BMI) Body weight Systolic And Diastolic Provider Name and Address Organization Details Last Updated DateTime 4 157.48 cm 98.6 [degF] 72 /min 95 % 95 % 39.9 kg/m2 35090.2 4 g 129/72 mm[Hg] Gia Red MA [facility] 4 12:03:31 Date Recorded Body height Body mass index (BMI) Body weight Body temperature Oxygen saturation Oxygen saturation in Arterial blood by Pulse oximetry Heart rate Systolic And Diastolic Provider Name and Address Organization Details Last Updated DateTime 4 157.48 cm 33.8 kg/m2 90224.1 5 g 97.1 [degF] 100 % 100 % 67 /min 130/60 mm[Hg] Alissa Perry MA [facility] 4 14:56:53 Date Recorded Body height Body temperature Heart rate Oxygen saturation Oxygen saturation in Arterial blood by Pulse oximetry Systolic And Diastolic Provider Name and Address Organization Details Last Updated DateTime 3 157.48 cm 97.2 [degF] 86 /min 96 % 96 % 146/76 mm[Hg] Mamadou Jenkins MA [facility] 3 12:20:05 Social History Question Answer Notes LastModified by Organizat ion Details LastModified Time Tobacco Smoking Status Never Smoker Nidhi [place], [facility] 10/18/2016 11:03:08 What Is Your Level Of Caffeine Consumption? Occasional Information not available 04/13/2021 What Was The Date Of Your Most Recent Tobacco Screening? 11/04/2024 [email or web address] Information not available 11/04/2024 Has Tobacco Cessation Counseling Been Provided? No Information not available 04/13/2021 Sex: Female Functional Status Question Answer Note LastModified by Organizat ion Details LastModified Time Do you use any [...] virus, quadrivalent, preservative 0 completed Not Available [facility] 10/28/2022 11:07:43 Influenza, split virus, quadrivalent, preservative 1 completed Not Available [facility] 10/28/2022 11:07:43 COVID-19, mRNA, LNP-S, PF, 30 mcg/0.3 mL dose 1 completed Not Available [facility] 10/28/2022 11:07:43 Influenza, high-dose, trivalent, PF 4 completed [place] - [facility] 09/23/2024 11:16:42 COVID-19, mRNA, LNP-S, PF, mushtaq-sucrose, 30 mcg/0.3 mL 4 completed [place] [facility] 09/23/2024 11:17:00 pneumococcal polysaccharide PPV23 4 completed [place] [facility] 11/07/2024 13:28:29 Influenza, split virus, quadrivalent, preservative 6 completed Not Available [facility] 10/28/2022 11:07:43 Tdap 5 completed Not Available [facility] 10/28/2022 11:07:43 Influenza, split virus, quadrivalent, preservative 5 completed Not Available [facility] 10/28/2022 11:07:43 Influenza, split virus, trivalent, preservative 1 completed Not Available [facility] 10/28/2022 11:07:43 influenza, unspecified formulation 7 completed Not Available [facility] 10/28/2022 11:07:43 Past Encounters Encounter ID Performer Location Encounter Start Date Encounter Closed Date Diagnosis/Indication Diagnosis SNOMED-CT Code Diagnosis ICD10 Code Diagnosis Note [id number] Cielo Alston MD [facility] [address] [place] [address] 10/18/2016 10:51:32 10/21/2016 11:50:08 Acquired trigger finger 2856075 M65.30 Essential hypertension 44122238 I10 [id number] Cielo Alston MD [facility] [address] [place] [address] 04/13/2017 09:59:37 04/13/2017 13:39:42 Benign essential hypertension 2573904 I10 Intentiona l weight loss 656229128 R63.8 weight watchers -- 30 pounds [id number] Cielo Alston MD [facility] [address] [place] [address] 10/19/2017 10:44:51 10/19/2017 16:49:41 Benign essential hypertension 4152846 I10 BP currently well-contr olled. Patient to continue current medication s. Hyperlipid emia screening 664676014 Z13.514 [id number] Cielo Alston MD [facility] [address] [place] [address] 04/30/2018 15:48:44 05/01/2018 13:53:20 Benign essential hypertension 5368411 I10 BP currently well-contr olled. Patient to continue current medication s. Mixed hyperlipidemia 267 574016 E78.2 Intentiona l weight loss 400777202 R63.8 weight watchers -- now 50 pounds Acute back pain with sciatica 141342210 M54.42 [id number] Ashley Gore MD [facility] [address] [place] [address] 07/19/2018 10:12:16 07/20/2018 09:55:36 Contact dermatitis 16940957 L25.9 stay cool, cont Benadryl at night as needed [id number] Cielo Alston MD [facility] [address] [place] [address] 10/30/2018 10:39:55 10/31/2018 10:50:37 Benign essential hypertension 9987495 I10 BP currently well-contr olled. Patient to continue current medication s. Mixed hyperlipidemia 267 674787 E78.2 Eczema 57337080 L30.9 Viral screening 09258710 4 Z11.59 Screening for malignant neoplasm of breast 287534057 Z12.31 Body mass index 30+ - obesity 543936611 Z68.32 Spinal bam nosis of lumbar region 41283122 M48.357 [id number] Cielo Alston MD [facility] [address] [place] [address] 11/16/2018 13:23:33 11/16/2018 15:40:20 Cellulitis of toe of left foot 3603050591 2698604 L03.032 if any fevers or chills or streaking head to ER this weekend [id number] Cielo Alston MD [facility] [address] [place] [address] 04/29/2019 11:52:43 04/29/2019 13:01:00 Benign essential hypertension 1676009 I10 BP currently well-contr olled. Patient to continue current medication s. Mixed hyperlipidemia 267 086648 E78.2 Unintentio nal weight gain 7159890344 56169 R63.5 Body mass index 30+ - obesity 810994974 Z68.32 Family his tory of diabetes mellitus 555381365 Z83.3 Deformity of bone in foot 708825603 M21.6X9 Eczema 80399893 L30.9 Low back pain 231847048 M54.5 [id number] Cielo Alston MD [facility] [address] [place] [address] 11/10/2020 09:20:52 11/11/2020 17:18:41 Prediabetes 405680288 R73.03 Mixed hyperlipidemia 267 907014 E78.2 Essential hypertension 41033240 I10 Sesamoiditis 03900233 M2 5.80 [id number] Cielo Alston MD [facility] [address] [place] [address] 04/13/2021 15:27:13 04/13/2021 17:27:24 Benign essential hypertension 5753281 I10 Mixed hyperlipidemia 267 032820 E78.2 Prediabetes 075029399 R7 3.03 Obstructiv e sleep apnea syndrome 07194191 G47.[address] [facility] 05/2014 Screening for malignant neoplasm of breast 510839725 Z12.31 [id number] Cielo Alston MD [facility] [address] [place] [address] 08/15/2022 10:16:44 08/15/2022 20:39:27 Benign essential hypertension 9525040 I10 Mixed hyperlipidemia 267 371382 E78.2 Osteomyelitis 88555920 M 86.9 left foot sesmoid bone Prediabetes 088215485 R7 3.03 [id number] Casa Lowe MD [facility] [address] [place] [address] 12/20/2022 14:23:01 12/21/2022 10:33:28 Pre-surgery evaluation 035993489 Z01.818 Presently clinically stable for scheduled surgeryAvo [...] patient is cleared with a normal echocardio gram- Luis Alberto (Revised) Score: 0, Class I: Very Low Risk - routine perioperat karen precaution s Sesamoiditis 97165405 M2 5.80 - planned surgical excision [id number] Casa Lowe MD [facility] [address] [place] [address] 04/17/2023 10:50:14 04/18/2023 11:12:56 Benign essential hypertension 9739483 I10 # HTN - Nearly controlled - Continue current medication s. No change in management - Encouraged routine blood pressure checksat home, targetless than 140/90 - DiscussedD FORREST diet(https ://www.nhl bi.nih.gov /files/doc s/public/h eart/dash_ brief.pdf) anddietary sodium restrictio ns - Continue/I ncrease dietary efforts and physical activity Mixed hyperlipidemia 267 476601 E78.2 # Hyperlipid emia - Last lipid panel < 1 year ago - ACC/AHA CV risk > 7.5% (11.1% - blood pressure) - Repeat prior to next visit - Continue with current management without changes. - Focus on a dietlow in saturated fats(https ://www.[facility] ZeroPercent.usealth.or g/educatio n/guidelin es-for-a-l ow-cholest lynnette-low-s aturated-f at-diet),b lood pressure control,sm oking cessation( http://cassia tyes.org/) anddaily exerciseto reduce your risk ofheart disease and stroke. Obstructiv e sleep apnea syndrome 76369586 G47.33 # JESSIKA on CPAPGood compliance .Symptoms improved.C ontinue to monitor. Prediabetes 288288185 R7 3.03 Continue dietary and lifestyle interventi ons Low back pain 952806721 M54.51 - stable, working on increasing exercise Body mass index 30+ - obesity 391760124 Z68.37 Focus on a healthy diet, avoid added salt, and arjqcj8452 calories or less daily. Exercise as tolerated, targeting3 0-60 minutes of exercise daily, at least 5 days per week Long-term drug therapy 993747004 Z79.899 Checking routine labwork prior to follow-up for ongoing long-term medication use. Menopause present 742195 006 Z78.0 [id number] Casa Lowe MD [facility] [address] [place] [address] 11/09/2023 11:56:09 11/10/2023 10:42:13 Benign essential hypertension 8917291 I10 # HTN - Nearly controlled - Continue current medication s. No change in management - Encouraged routine blood pressure checksat home, targetless than 140/90 - DiscussedD FORREST diet(https ://www.nhl bi.nih.gov /files/doc s/public/h eart/dash_ brief.pdf) anddietary sodium restrictio ns - Continue/I ncrease dietary efforts and physical activity Mixed hyperlipidemia 267 485241 E78.2 # Hyperlipid emia- Last lipid panel > 1 year ago- ACC/AHA CV risk > 7.5%- Repeat today- Continue with current management without changes.- Focus on a dietlow in saturated fats(https ://www.[facility] fhealth.or g/educatio n/guidelin es-for-a-l ow-cholest lynnette-low-s aturated-f at-diet),b lood pressure control,sm oking cessation( http://cassia tyes.org/) anddaily exerciseto reduce your risk ofheart disease and stroke. Prediabetes 918800931 R7 3.03 Continue dietary and lifestyle interventi ons Body mass index 30+ - obesity [id number] Z68.37 Focus on a healthy diet, avoid added salt, and [id number] calories or less daily. Exercise as tolerated, targeting3 0-60 minutes of exercise daily, at least 5 days per week Long-term drug therapy [id number] Z79.899 Checking routine labwork prior to follow-up for ongoing long-term medication use. Obstructiv e sleep apnea syndrome 06154036 G47.33 # JESSIKA on CPAPGood compliance .Symptoms improved.C ontinue to monitor. Low back pain [id number] M54.51 - stable, working on increasing exercise Osteopenia 122211240 M85 .80 - continues on vitamin D, calcium, working toward exercise Asthmatic bronchitis [id number] 706542 J45.909 Likely viral.Reas surance. Supportive care.Incre ase [...] next several days, or if getting worse. [id number] Casa Lowe MD [facility] [address] [place], [place] [address] 05/06/2024 11:17:38 05/06/2024 21:11:04 Benign essential hypertension 9821429 I10 # HTNControl ledContinu e current medication s. No change in management Encouraged routine blood pressure checksat home, targetless than 140/90Disc ussedDASH diet(https ://www.nhl bi.nih.gov /files/doc s/public/h eart/dash_ brief.pdf) anddietary sodium restrictio nsContinue /Increase dietary efforts and physical activity Mixed hyperlipidemia 267 537078 E78.2 # Hyperlipid emia Last lipid panel < 1 year ago ACC/AHA CV risk > 7.5% (7.8% w/ controlled systolic blood pressure) Repeat prior to next visit Continue with current management without changes. Focus on a dietlow in saturated fats(https ://www.[facility] hospitalForsyth Technical Community Collegeth.or g/educatio n/guidelin es-for-a-l ow-cholest lynnette-low-s aturated-f at-diet),b lood pressure control,sm oking cessation( http://cassia tyes.org/) anddaily exerciseto reduce your risk ofheart disease and stroke. Prediabetes 651441855 R7 3.03 6.5 at last check - repeat todayConti nue dietary and lifestyle interventi ons Obstructiv e sleep apnea syndrome 74676302 G47.33 # JESSIKA on CPAPGood compliance .Symptoms improved.C ontinue to monitor. Low back pain 790181920 M54.51 - stable, working on increasing exercise Body mass index 30+ - obesity 985074009 Z68.37 Focus on a healthy diet, avoid added salt, and [id number] calories or less daily. Exercise as tolerated, targeting3 0-60 minutes of exercise daily, at least 5 days per week Long-term drug therapy 470098834 Z79.899 Checking routine labwork prior to follow-up for ongoing long-term medication use. Osteopenia 664350716 M85 .80 - continues on vitamin D, calcium, working toward exercise Liver enzy mes level above reference range 636313533 R74.01 recheck today Vitamin D deficiency 347 14603 E55.9 recheck vitamin D [id number] Ashley Gore MD [facility] [address] [place] [address] 11/04/2024 14:43:38 11/04/2024 16:32:06 Benign essential hypertension 5665678 I10 -Controlle d on current therapy.-G oals: BP < 140/90 per JNC8, prevent CV and renal comorbidit ies.-Shoul d notify office for BP less than 90/60.-Cindy ntain a low sodium (less than 2000mg) diet and encouraged at least 30-45 minutes of aerobic activity most days of the week-Healt hy weight-f/u 6 months Mixed hyperlipidemia 267 510506 E78.2 Follow a low fat and low [...] days a week).Avoi d tobacco products. Prediabetes 743553784 R7 3.03 -A1C still consistent with prediabete s at 5.5-Advise d to cut the carbohydra amanda in diet (bread, pasta, rice, potatoes, and sweets) and increase physical activity to goal of 150 min of aerobic activity weekly.-re check A1C in 6 months Liver enzy mes level above reference range 913430394 R74.01 -pt liver enzymes were elevated at last visit, will recheck and if still elevated will refer to heptologis t for fatty liver evaluation . Pt agrees. Obesity 894964713 E66.9 -pt has been consistent ly following [...] dinner.5. Increase Exertion within Daily Activities : [id number] Steps/day. Avoid Elevators, escalators at public places. Increase steps in parking lots! Contact dermatitis [phone] L25.9 -pt to apply triamcinol one cream 2x/day for 2 weeks. If not better or gets worse pt instructed to make a f/u appt sooner than 6 months. Health Concerns Section Related Observation LastModified by Organization Detai ls LastModified Time None Recorded Concern Status LastModified by Organization Details LastModified Time None Recorded Advance Directives Directive None Recorded Payers Insurance Date Sequence Insurance Name Policy Number Policy Ludwig Covered Member ID Ludwig Member ID Guarantor Name 05/17/2025 2 [employer] (MEDICARE SUPPLEMENT) PLAN G Parvin Neeraj Michael [id number] Parvin Rodriguez 05/17/2025 MEDICARE [place]: [facility] Parvinludwin Rodriguez [id number] Parvin Rodriguez 05/17/2025 1 [place] Parvin Rodriguez [id number] Parvinludwin Rodriguez 04/14/[address] [facility] (O) [id number] Parvin Rodriguez [id number] Parvin Rodriguez 11/16/2018 1 [facility] ([facility]) [id number] Parvin Rodriguez [id number] Parvin Rodriguez Notes Date Note Type Note Provider Name and Address Organization Details Recorded Time 3 text/html PREOPERATIVE VISIT/SUBJECTIVE: Diagnosis: Sesamoiditis, left footProcedure: Excision of left fibular sesamoidSurgeon: GuignonDate Of Surgery: 12/29/22No complications from previous anesthesiaPatient [...] HPI. All other systems reviewed and negative. -Warehouse Operator/Nursing note reviewed.- Casa Lowe MD Attn: Accounting,[address] [facility], [place], [address], [facility] 12/26/2022 19:29:35 3 text/html Hypertension F/UReported bypatient.Associated Symptoms:no dizziness; no lightheadedness; no chest pain; no shortness of breath; no palpitations; no edema; no calf pain with exertion Medications:taking medications as directed; no side effects from medication 6+-MONTH FOLLOW-UP VISIT/SUBJECTIVE: The patient presents for routine 6+-month follow-up of hypertension and hyperlipidemia, among other chronic conditions Last routine follow-up office visit: [id number] labwork: 9Feb22 (BMP), 5OCt22 (hemoglobin A1c), 06Fcq67 (lipids) Patient reports consistent use of medications, [...] Well-woman exam: hysterectomy - not applicable- Mammography: 08Qgz14- DEXA: remoteORDER Hypertension - On losartan, hydrochlorothiazide - Consistent use of medications - Does not report any headaches, blurry vision, dizziness, chest pain, shortness of breath, or palpitations - chronic blurry vision - follows with eye critical care physician assistant - Not following a low salt diet. [...] looking toward water aerobics/swimming as good options -Warehouse Operator/Nursing note reviewed.- Casa Lowe MD Attn: Accounting,[address] [facility], [place], [address], [facility] 04/17/2023 13:12:08 3 text/html Hypertension F/UReported bypatient.Associated Symptoms:no dizziness; no lightheadedness; no chest pain; no shortness of breath; no palpitations; no edema; no calf pain with exertion Lifestyle:regular exercise;high salt intake Medications:taking medications as directed; no side effects from medication 6+-MONTH FOLLOW-UP VISIT/SUBJECTIVE: Parvin presents for routine 6-month follow-up of hypertension and hyperlipidemia, among other chronic conditions Last routine follow-up office visit: 5Rch85Rgpt labwork: 9Feb23 (bmp) Patient reports consistent use of medications, without side effects or intolerances. Current concerns:- cough - 10-14 days-- intermittent-- some production-- minimal nocturnal cough-- no fevers or chills. no night sweats-- no chest pain or dyspnea-- Using jrxj-fje-mxwwmzg meds with some relief. (cough drops, Coricidin HBP) - throbbing pain to left postauricular area-- ongoing for less than a week-- recent dental work Health maintenance:- Immunizations due: pneumococcal- Colorectal cancer screening: remote - at [place]?- Well-woman exam: hysterectomy - not applicable- Mammography: 94Ukg75- DEXA: 71Jki74 - osteopenia Hypertension- On losartan, hydrochlorothiazide- Consistent use of medications- Does not report any headaches, blurry vision, dizziness, chest pain, shortness of breath, or palpitations - chronic blurry vision - follows with eye critical care physician assistant- Not following a low salt diet.- Exercising [...] looking toward water aerobics/swimming as good options -Warehouse Operator/Nursing note reviewed.- Casa Lowe MD Attn: Accounting,[address] [facility], [place], [address], [facility] 11/09/2023 14:05:03 4 text/html Hypertension [...] chronic conditions Last routine follow-up office visit: 90Kch73Oprx labwork: 11Hau35 Patient reports consistent use of medications, without side effects or intolerances. Current concerns:none Health maintenance:[facility]izations due[facility]ococcal [facility] [place] - 10yrfuWell-woman exam: hysterectomyMammography: 08Fxs18XWCK: 02Dxq99 - osteopenia Hypertension On hydrochlorothiazide, losartan Consistent [...] as good options Vitamin D Deficiency- recheck level-Warehouse Operator/Nursing note reviewed.- Casa Lowe MD Attn: Accounting,[address] [facility], [place], [address], [facility] 05/06/2024 13:18:19 4 text/html HyperlipidemiaReported bypatient.Current Therapy:currently [...] of treatment DAO Whyte Attn: Accounting,[address] [facility], [place], [address], [facility] 11/04/2024 15:52:24 OBGyn Episode No OBEpisode recorded.
[2025-05-19 13:29] LABS: Anion Gap 9 mmol/L (4-12); Blood Urea Nitrogen 18 mg/dL (7-17); Calcium 9.8 mg/dL (8.4-10.2); Carbon Dioxide 24 mmol/L (22-30); Chloride 105 mmol/L (98-107); Estimated Glomerular Filt Rate > 60; Glucose 108 mg/dL (65-110); Potassium 4.3 mmol/L (3.4-5.0); Sodium 138 mmol/L (137-145)
== END 2025-05-19 12:12 | disposition home or self-care (01) ==
PROVIDERS: PCP Emergency Medicine
DX: R74.01 Elevation of levels of liver transaminase levels (principal)
CPT/HCPCS: 36415; 80048

== ENCOUNTER 2025-10-27 00:43 | Day surgery (SDC) | payer MEDICARE, SELFPAY ==
[2025-10-13 12:40] VITALS: BMI 36.5
--- OUTSIDE RECORDS SUMMARY | 2025-10-27 00:46 | XMS_ITS | Data Portability ---
Author Organization [facility] Address [address] [place] [address] Assessment No assessment recorded. Plan of Treatment Reminders Order Date Submit Date Provider Last Modified By Organization Details Last Modified Time Details Appointments ANY 15 2024 11:00A M DAO Whyte Not available Not available Not available Lab lipid panel, serum 2023 024 Tang Song [facility], [address], [address], [place], [address], 11/05/2024 22:16:13 HbA1c (hemoglob in A1c), blood 2023 024 DANIEL In-Office Order, Internal Use Only DO Not Attach Compendium DO Not Attach Compendium, Do Not Delete/merge, [id number] 11/04/2024 16:51:48 CBC w/ auto diff 2023 024 Tang Song [facility], [address], [address], [place], [address], 11/05/2024 22:16:16 CMP, serum or plasma 2023 024 Tang Song [facility], [address], [address], [place], [address], 11/05/2024 22:16:14 hemoglobi n A1c, QN, blood 2023 024 [employer] [facility], [address], [address], [place], [address], 05/27/2024 14:11:10 CMP, serum or plasma 2023 024 [facility], [address], [address], [place], [address], 05/08/2024 02:32:00 magnesium , serum or plasma 2023 024 [facility], [address], [address], [place], [address], 05/08/2024 02:32:00 vitamin D, 25-hydrox y, total, serum 2023 024 [facility], [address], [address], [place], [address], 05/08/2024 02:32:01 hemoglobi n A1c, QN, blood 2022 023 [facility], [address], [address], [place], [address], 11/09/2023 13:48:55 CMP, serum or plasma 2022 023 [facility], [address], [address], [place], [address], 11/10/2023 12:32:11 CBC w/ auto diff 2022 023 [facility], [address], [address], [place], [address], 11/10/2023 12:32:11 magnesium , serum or plasma 2022 023 [facility], [address], [address], [place], [address], 11/10/2023 12:32:10 lipid panel, serum 2022 023 [facility], [address], [address], [place], [address], 11/10/2023 12:32:09 vitamin D, 25-hydrox y, total, serum 2022 023 [facility], [address], [address], [place], [address], 11/10/2023 12:32:12 CMP, serum or plasma 2022 023 [facility] (Lab), [address], [place], [address], 11/16/2023 16:54:20 CBC w/ auto diff 2022 023 [facility] (Lab), [address], [place], [address], 11/16/2023 16:54:20 magnesium , serum or plasma 2022 023 [facility] (Lab), [address], [place], [address], 11/16/2023 16:54:20 lipid panel, serum 2022 023 [facility] (Lab), [address] [facility], [place], [address], 11/16/2023 16:54:20 HbA1c (hemoglob in A1c), blood [address] [facility] (Lab), [address], [place], [address], 11/10/2023 12:32:13 Referral gastroent erologist referral 2024 025 [facility], [address], [address], [place], [address], 10/14/2025 17:01:15 Procedures None recorded. Surgeries None recorded. Imaging MAMMO, screening , digital, bilateral [address] [facility], [address] [facility], [place], [address], 05/28/2025 14:42:58 D[address]A [address] [facility], [address] [facility], [place], [address], 07/10/2023 10:22:41 Medication Orders triamcino lone acetonide 0.1 % topical ointment 2023 025 [facility] [address] [place], [address], 01/01/2025 16:26:36 prednison e 20 mg tablet [address] [facility] [address] [facility]/Pharmacy #2510, [address] [place], [address], 01/13/2024 08:26:30 azithromy donna 500 mg tablet [address] [facility] [address] [facility]/Pharmacy #2510, [address] [place], [address], 01/13/2024 08:26:18 albuterol sulfate HFA 90 mcg/actua tion aerosol inhaler 2022 [facility] [address] [place], [address], 05/06/2024 11:59:16 losartan 50 mg-hydroc hlorothia zide 12.5 mg tablet 2022 023 [facility]/Pharmacy #2510, [address] [place], [address], 11/09/2023 13:53:31 Patient TargetsNo targets recorded. Patient Instructions Encounter Date Encounter Id Patient Instructions Last Modified By Organization Details Last Modified Time 04/17/2023 [id number] back care and preventing injuries: care instructions [email or web address] Not available 04/17/2023 12:08:29 sleep apnea: car e instructions [email or web address] Not available 04/17/2023 12:08:28 high blood pressure: care instructions [email or web address] Not available 04/17/2023 12:08:29 learning about high blood pressure [email or web address] Not available 04/17/2023 12:08:28 body mass index: care instructions [email or web address] Not available 04/17/2023 12:15:13 learning about healthy weight fmsjfrjizm64 Not available 04/17/2023 12:15:13 Parvin, - Thank [...] pneumonia. Currently, this is a single immunization, [id number], if you have never previously been immunized. [...] sink where they are visible to you. [email or web address] Not available 04/17/2023 12:08:25 11/09/2023 [id number] back care and preventing injuries: care instructions [email or web address] Not available 11/09/2023 13:48:21 upper respirator y infection (cold): care instructions [email or web address] Not available 11/09/2023 13:53:26 sleep apnea: car e instructions [email or web address] Not available 11/09/2023 13:48:20 learning about high blood pressure qgcqlaotuc26 Not available 11/09/2023 13:48:20 body mass index: care instructions [email or web address] Not available 11/09/2023 13:48:20 learning about healthy weight [email or web address] Not available 11/09/2023 13:48:20 Parvin, - Thank [...] pneumonia. Currently, this is a single immunization, [email or web address], if you have never previously been immunized. Yearly influenza immunization is recommended, and typically available beginning in mid-July. I highly encourage all who are able to complete an initial immunization series against COVID19, along with boosters as indicated by age or medical history. Consider obtaining an RSV immunization. For more information: https://www.cdc.go v/vaccines/vpd/rsv /index.html Exercise recommendations: It is recommended that you [...] of green and leafy vegetables, including salads. [email or web address] Not available 11/09/2023 14:03:33 05/06/2024 [id number] back care and preventing injuries: care instructions [email or web address] Not available 05/06/2024 13:12:40 sleep apnea: car e instructions [email or web address] Not available 05/06/2024 13:12:40 learning about high blood pressure [email or web address] Not available 05/06/2024 13:12:40 body mass index: care instructions Not available 05/06/2024 13:12:40 learning about healthy weight faylffhsyy11 Not available 05/06/2024 13:12:40 Parvin, - Thank y ou for your visit - Continue your current [...] pneumonia. Currently, this is a single immunization, Mspuyje15, if you have never previously been immunized [...] of green and leafy vegetables, including salads. [email or web address] Not available 05/06/2024 13:16:58 11/04/2024 [id number] A healthy lifestyle: care instructions jreuss Not available 11/04/2024 15:27:49 05/20/2025 [id number] advance care planning: care instructions jreuss Not available 05/20/2025 16:01:19 preventing falls : care instructions jreuss Not available 05/20/2025 16:01:19 Quitting Tobacco : Care Instructions jreuss Not available 05/20/2025 16:01:18 Medicare Wellnes s [facility] Not available 05/20/2025 16:01:18 eating healthy foods: care instructions jreuss Not available 05/20/2025 16:01:19 AD8 Dementia Screening Interview jreuss Not available 05/20/2025 16:01:18 advance care planning: care instructions jreuss Not available 05/20/2025 16:01:19 preventing falls : care instructions jreuss Not available 05/20/2025 16:01:18 Quitting Tobacco : Care Instructions jreuss Not available 05/20/2025 16:01:19 Medicare Wellnes s Preventive Checklist jreuss Not available 05/20/2025 16:01:18 eating healthy foods: care instructions jreuss Not available 05/20/2025 16:01:19 AD8 Dementia Screening Interview jreuss Not available 05/20/2025 16:01:19 A healthy lifestyle: care instructions jreuss Not available 05/20/2025 16:01:18 Reason for Referral Outreach Consultant Referral for Screening for malignant neoplasm of colon Referring Physician: Hannah Bajwa, Family Medicine, Encounter Date: 05/20/2025 Results Created Date Observation Date Name Description Value Unit Range Abnormal Flag Note LastModifiedBy Organization Detail LastModifiedTime 11/09/2011/10/2023 LIPID PANEL , STAND RICCARDO cholesterol, total 236 mg/dL <200 high Not Available [facility] [address] [address] [place], [address], 11/10/2023 12:32:09 11/09/20 23 11/10/2023 LIPID PANEL , STAND RICCARDO HDL cholesterol 77 mg/dL > or = 50 normal Not Available [facility] [address] [place], [address], 11/10/2023 12:32:09 11/09/20 23 11/10/2023 LIPID PANEL , STAND RICCARDO triglyceride s 184 mg/dL <150 high Not Available [facility] [address] [place], [address], 11/10/2023 12:32:09 11/09/20 23 11/10/2023 LIPID PANEL [...] lated using the Jaja n-Hop kins calcu robbieprincess n, which is a valid ated novel metho d provi ding saba r accur acy than the Fried anastasiya equat ion in the estim ation of LDL-C . Jaja arriaga SS et al. CECE. 2013; 310(1 9): 2061- 2068 (http ://ed ucati on.[employer]. com/f aq/FA Q164) Not Available [facility] [address] [address] [place], [address], 11/10/2023 12:32:09 11/09/2011/10/2023 LIPID PANEL , STAND RICCARDO chol/HDLC ratio 3.1 (calc ) <5.0 normal Not Available [facility] [address] [address] [address], [place], [address], 11/10/2023 12:32:09 11/09/20 23 11/10/2023 LIPID PANEL , STAND RICCARDO non HDL cholesterol 159 mg/dL _(tiny c) <130 high For patie nts with diabe amanda plus 1 major ASCVD risk facto r, treat ing to a non-H DL-C goal of <100 mg/dL (LDL- C of <70 mg/dL ) is consi christined doris zee optio n. Not Available [facility] [address] [place], [address], 11/10/2023 12:32:09 11/09/20 23 11/10/2023 MAGNE SIUM magnesium 1.6 mg/dL 1.5-2. 5 normal Not Available [facility] [address] [address] [place], [address], 11/10/2023 12:32:10 11/09/20 23 11/10/2023 COMPR EHENS KAREN METAB OLIC PANEL glucose 98 mg/dL 65-99 normal Fasti ng refer ence inter arjun Not Available [address], [address], 11/10/2023 12:32:11 11/09/20 23 11/10/2023 COMPR EHENS KAREN METAB OLIC PANEL urea nitrogen (BUN) 14 mg/dL 7-25 normal Not Available [address], [address], 11/10/2023 12:32:11 11/09/20 23 11/10/2023 COMPR EHENS KAREN METAB OLIC PANEL creatinine 0.72 mg/dL 0.50-1 .05 normal Not Available [address], [address], 11/10/2023 12:32:11 11/09/20 23 11/10/2023 COMPR EHENS KAREN METAB OLIC PANEL eGFR 92 mL/mi n/1.7 3m2 > or = 60 normal Not Available [address], [address], 11/10/2023 12:32:11 11/09/20 23 11/10/2023 COMPR EHENS KAREN METAB OLIC PANEL BUN/creatini ne ratio SEE NOTE: (calc ) 6-22 Not Repor eddie: BUN and Creat inine are withi n refer ence range . Not Available [address], [address], 11/10/2023 12:32:11 11/09/20 23 11/10/2023 COMPR EHENS KAREN METAB OLIC PANEL sodium 139 mmol/ L 135-14 6 normal Not Available [address], [address], 11/10/2023 12:32:11 11/09/20 23 11/10/2023 COMPR EHENS KAREN METAB OLIC PANEL potassium 4.0 mmol/ L 3.5-5. 3 normal Not Available [address], [address], 11/10/2023 12:32:11 11/09/20 23 11/10/2023 COMPR EHENS KAREN METAB OLIC PANEL chloride 105 mmol/ L 98-110 normal Not Available [address], [address], 11/10/2023 12:32:11 11/09/20 23 11/10/2023 COMPR EHENS KAREN METAB OLIC PANEL carbon dioxide 24 mmol/ L 20-32 normal Not Available [address], [address], 11/10/2023 12:32:11 11/09/20 23 11/10/2023 COMPR EHENS KAREN METAB OLIC PANEL calcium 9.7 mg/dL 8.6-10 .4 normal Not Available [address], [address], 11/10/2023 12:32:11 11/09/20 23 11/10/2023 COMPR EHENS KAREN METAB OLIC PANEL protein, total 7.3 g/dL 6.1-8. 1 normal Not Available [address], [address], 11/10/2023 12:32:11 11/09/20 23 11/10/2023 COMPR EHENS KAREN METAB OLIC PANEL albumin 4.1 g/dL 3.6-5. 1 normal Not Available [address], [address], 11/10/2023 12:32:11 11/09/20 23 11/10/2023 COMPR EHENS KAREN METAB OLIC PANEL globulin 3.2 g/dL_ (calc ) 1.9-3. 7 normal Not Available [address], [address], 11/10/2023 12:32:11 11/09/20 23 11/10/2023 COMPR EHENS KAREN METAB OLIC PANEL albumin/glob ulin ratio 1.3 (calc ) 1.0-2. 5 normal Not Available [address], [address], 11/10/2023 12:32:11 11/09/20 23 11/10/2023 COMPR EHENS KAREN METAB OLIC PANEL bilirubin, total 0.4 mg/dL 0.2-1. 2 normal Not Available [address], [address], 11/10/2023 12:32:11 11/09/20 23 11/10/2023 COMPR EHENS KAREN METAB OLIC PANEL alkaline phosphatase 84 U/L 37-153 normal Not Available [address], [address], 11/10/2023 12:32:11 11/09/20 23 11/10/2023 COMPR EHENS KAREN METAB OLIC PANEL AST 89 U/L 10-35 high Not Available [address], [address], 11/10/2023 12:32:11 11/09/20 23 11/10/2023 COMPR EHENS KAREN METAB OLIC PANEL ALT 70 U/L 6-29 high Not Available [address], [address], 11/10/2023 12:32:11 11/09/20 23 11/10/2023 CBC (INCL UDES DIFF/ PLT) white blood cell count 6.6 thous and/u L 3.8-10 .8 normal Not Available [address], [address], 11/10/2023 12:32:11 11/09/20 23 11/10/2023 CBC (INCL UDES DIFF/ PLT) red blood cell count 4.10 konrad on/uL 3.80-5 .10 normal Not Available [address], [address], 11/10/2023 12:32:11 11/09/20 23 11/10/2023 CBC (INCL UDES DIFF/ PLT) hemoglobin 13.3 g/dL 11.7-1 5.5 normal Not Available [address], [address], 11/10/2023 12:32:11 11/09/2011/10/2023 CBC (INCL UDES DIFF/ PLT) hematocrit 37.9 % 35.0-4 5.0 normal Not Available [address], [address], 11/10/2023 12:32:11 11/09/20 23 11/10/2023 CBC (INCL UDES DIFF/ PLT) MCV 92.4 fL 80.0-1 00.0 normal Not Available [address], [address], 11/10/2023 12:32:11 11/09/20 23 11/10/2023 CBC (INCL UDES DIFF/ PLT) MCH 32.4 pg 27.0-3 3.0 normal Not Available [address], [address], 11/10/2023 12:32:11 11/09/20 23 11/10/2023 CBC (INCL UDES DIFF/ PLT) MCHC 35.1 g/dL 32.0-3 6.0 normal Not Available [address], [address], 11/10/2023 12:32:11 11/09/20 23 11/10/2023 CBC (INCL UDES DIFF/ PLT) RDW 12.6 % 11.0-1 5.0 normal Not Available [address], [address], 11/10/2023 12:32:11 11/09/20 23 11/10/2023 CBC (INCL UDES DIFF/ PLT) platelet count 253 thous and/u L 140-40 0 normal Not Available [address], [address], 11/10/2023 12:32:11 11/09/20 23 11/10/2023 CBC (INCL UDES DIFF/ PLT) MPV 10.7 fL 7.5-12 .5 normal Not Available [address], [address], 11/10/2023 12:32:11 11/09/20 23 11/10/2023 CBC (INCL UDES DIFF/ PLT) absolute neutrophils 3742 cells /uL 1500-7 800 normal Not Available [address], [address], 11/10/2023 12:32:11 11/09/20 23 11/10/2023 CBC (INCL UDES DIFF/ PLT) absolute lymphocytes 2000 cells /uL 850-39 00 normal Not Available [address], [address], 11/10/2023 12:32:11 11/09/20 23 11/10/2023 CBC (INCL UDES DIFF/ PLT) absolute monocytes 594 cells /uL 200-95 0 normal Not Available [address], [address], 11/10/2023 12:32:11 11/09/20 23 11/10/2023 CBC (INCL UDES DIFF/ PLT) absolute eosinophils 211 cells /uL 15-500 normal Not Available [address], [address], 11/10/2023 12:32:11 11/09/20 23 11/10/2023 CBC (INCL UDES DIFF/ PLT) absolute basophils 53 cells /uL 0-200 normal Not Available [address], [address], 11/10/2023 12:32:11 11/09/20 23 11/10/2023 CBC (INCL UDES DIFF/ PLT) neutrophils 56.7 % normal Not Available [address], [address], 11/10/2023 12:32:11 11/09/20 23 11/10/2023 CBC (INCL UDES DIFF/ PLT) lymphocytes 30.3 % normal Not Available [address], [address], 11/10/2023 12:32:11 11/09/20 23 11/10/2023 CBC (INCL UDES DIFF/ PLT) monocytes 9.0 % normal Not Available [address], [address], 11/10/2023 12:32:11 11/09/20 23 11/10/2023 CBC (INCL UDES DIFF/ PLT) eosinophils 3.2 % normal Not Available [address], [address], 11/10/2023 12:32:11 11/09/20 23 11/10/2023 CBC (INCL UDES DIFF/ PLT) basophils 0.8 % normal Not Available [address], [address], 11/10/2023 12:32:11 11/09/20 23 11/10/2023 VITAM IN [...] /MS is recom cristino d: order code 30179 (catherine ents >2yrs ). See Note 1 Note 1 For addit ional infor marco mir refer to http: //[facility] adrienne [place] stDia gnost ics.c om/fa q/FAQ 199 (This link is being provi ded for infor raven coyne/ educdoris barrera purpo ses only. ) Not Available [facility] [address] [place], [address], 11/10/2023 12:32:12 11/09/20 23 11/10/2023 HEMOG LOBIN [...] diabe amanda for child kadie. Not Available [facility] [address] [place], [address], 11/10/2023 12:32:13 05/06/20 24 05/08/2024 MAGNE SIUM magnesium 1.5 mg/dL 1.5-2. 5 normal Not Available [facility] [address], [address], 05/08/2024 02:31:59 05/06/20 24 05/08/2024 COMPR EHENS KAREN METAB OLIC PANEL glucose 245 mg/dL 65-99 high Fasti ng refer ence inter arjun For someo ne witho ut known diabe amanda, a gluco se value >125 mg/dL indic ates that they may have diabe amanda and this shoul d be confi rmed with a follo w-up test. Not Available [address], [address], 05/08/2024 02:32:00 05/06/2005/08/2024 COMPR EHENS KAREN METAB OLIC PANEL urea nitrogen (BUN) 12 mg/dL 7-25 normal Not Available [facility] [address], [address], 05/08/2024 02:32:00 05/06/20 24 05/08/2024 COMPR EHENS KAREN METAB OLIC PANEL creatinine 0.65 mg/dL 0.50-1 .05 normal Not Available [facility] [address], [address], 05/08/2024 02:32:00 05/06/20 24 05/08/2024 COMPR EHENS KAREN METAB OLIC PANEL eGFR 96 mL/mi n/1.7 3m2 > or = 60 normal Not Available [facility] [address], [address], 05/08/2024 02:32:00 05/06/2005/08/2024 COMPR EHENS KAREN METAB OLIC PANEL BUN/creatini ne ratio SEE NOTE: (calc ) 6-22 Not Repor eddie: BUN and Creat inine are withi n refer ence range . Not Available [facility] [address], [address], 05/08/2024 02:32:00 05/06/20 24 05/08/2024 COMPR EHENS KAREN METAB OLIC PANEL sodium 134 mmol/ L 135-14 6 low Not Available [address], [address], 05/08/2024 02:32:00 05/06/20 24 05/08/2024 COMPR EHENS KAREN METAB OLIC PANEL potassium 4.0 mmol/ L 3.5-5. 3 normal Not Available [address], [address], 05/08/2024 02:32:00 05/06/20 24 05/08/2024 COMPR EHENS KAREN METAB OLIC PANEL chloride 103 mmol/ L 98-110 normal Not Available [address], [address], 05/08/2024 02:32:00 05/06/20 24 05/08/2024 COMPR EHENS KAREN METAB OLIC PANEL carbon dioxide 18 mmol/ L 20-32 low Not Available [address], [address], 05/08/2024 02:32:00 05/06/20 24 05/08/2024 COMPR EHENS KAREN METAB OLIC PANEL calcium 10.0 mg/dL 8.6-10 .4 normal Not Available [address], [address], 05/08/2024 02:32:00 05/06/20 24 05/08/2024 COMPR EHENS KAREN METAB OLIC PANEL protein, total 7.5 g/dL 6.1-8. 1 normal Not Available [address], [address], 05/08/2024 02:32:00 05/06/20 24 05/08/2024 COMPR EHENS KAREN METAB OLIC PANEL albumin 4.1 g/dL 3.6-5. 1 normal Not Available [address], [address], 05/08/2024 02:32:00 05/06/20 24 05/08/2024 COMPR EHENS KAREN METAB OLIC PANEL globulin 3.4 g/dL_ (calc ) 1.9-3. 7 normal Not Available [address], [address], 05/08/2024 02:32:00 05/06/20 24 05/08/2024 COMPR EHENS KAREN METAB OLIC PANEL albumin/glob ulin ratio 1.2 (calc ) 1.0-2. 5 normal Not Available [address], [address], 05/08/2024 02:32:00 05/06/20 24 05/08/2024 COMPR EHENS KAREN METAB OLIC PANEL bilirubin, total 0.4 mg/dL 0.2-1. 2 normal Not Available [address], [address], 05/08/2024 02:32:00 05/06/20 24 05/08/2024 COMPR EHENS KAREN METAB OLIC PANEL alkaline phosphatase 97 U/L 37-153 normal Not Available [address], [address], 05/08/2024 02:32:00 05/06/20 24 05/08/2024 COMPR EHENS KAREN METAB OLIC PANEL AST 89 U/L 10-35 high Not Available [address], [address], 05/08/2024 02:32:00 05/06/20 24 05/08/2024 COMPR EHENS KAREN METAB OLIC PANEL ALT 102 U/L 6-29 high Not Available [address], [address], 05/08/2024 02:32:00 06/24/05/08/2024 VITAM IN D,25- OH,TO NIKITA,I A vitamin [...] /MS is recom cristino d: order code 49952 (catherine ents >2yrs ). See Note 1 Note 1 For addit ional infor marco mir refer to http: //[facility] adrienne arriaga.Lenny stDia gnost ics.c om/fa q/FAQ 199 (This link is being provi ded for infor raven coyne/ anderson barrera purpo ses only. ) Not Available [facility] [address] [place], [address], 05/08/2024 02:32:01 05/06/2005/08/2024 HEMOG LOBIN A1C hemoglobin A1C 7.1 %_of_ [...] c503 platf orm. Effec tive , a jonathan gallego in test platf orms from the [facility] to the [facility] c503 may have shift ed HbA1c resul ts nisreen red to histo rical resul ts. Based on labor atory valid ation testi ng condu cted at [facility] , the [facility] platf orm relat karen to the [facility] platf orm had an avera ge incre ase in HbA1c value of < or = 0.3%. This diffe rence is withi n accep eddie varia bilit y estab lishe d by the [facility] Glyco hemog lobin Stand nelliediz ation Progr am. Note that not all indiv idual s will have had a shift in their resul ts and direc t nisreen rison s betwe en histo rical and curre nt resul ts for testi ng condu cted on diffe rent platf orms is not recom cristino d. Not Available [facility] [address] [address] [place], [address], 05/08/2024 02:32:02 11/04/20 24 11/05/2024 LIPID PANEL , STAND RICCARDO cholesterol, total 204 mg/dL <200 high Not Available [facility] [address] [address] [place], [address], 11/05/2024 22:16:13 11/04/20 24 11/05/2024 LIPID PANEL , STAND RICCARDO HDL cholesterol 84 mg/dL > or = 50 normal Not Available [facility] [address] [address] [place], [address], 11/05/2024 22:16:13 11/04/20 24 11/05/2024 LIPID PANEL , STAND RICCARDO triglyceride s 92 mg/dL <150 normal Not Available [facility] [address] [address] [place], [address], 11/05/2024 22:16:13 12/23/11/05/2024 LIPID PANEL , STAND RICCARDO LDL-choleste rol [...] n, which is a valid ated novel metho d provi ding saba r accur acy than the Fried anastasiya equat ion in the estim ation of LDL-C . Jaja n SS et al. CECE. 2013; 310(1 9): 2061- 2068 (http ://ed ucati on.[employer]. [employer]/f aq/FA Q164) Not Available [facility] [address] [address] [place], [address], 11/05/2024 22:16:13 11/04/20 24 11/05/2024 LIPID PANEL , STAND RICCARDO chol/HDLC ratio 2.4 (calc ) <5.0 normal Not Available [facility] [address] [address] [address] , [place], [address], 11/05/2024 22:16:13 11/04/20 24 11/05/2024 LIPID PANEL , STAND RICCARDO non HDL cholesterol 120 mg/dL _(tiny c) <130 normal For patie nts with diabe amanda plus 1 major ASCVD risk facto r, treat ing to a non-H DL-C goal of <100 mg/dL (LDL- C of <70 mg/dL ) is consi dered a thera peuti c optio n. Not Available [facility] [address] [address], [place], [address], 11/05/2024 22:16:13 11/04/20 24 11/05/2024 COMPR EHENS KAREN METAB OLIC PANEL glucose 91 mg/dL 65-99 normal Fasti ng refer ence inter arjun Not Available [facility] [address] [address] [place], [address], 11/05/2024 22:16:14 11/04/20 24 11/05/2024 COMPR EHENS KAREN METAB OLIC PANEL urea nitrogen (BUN) 23 mg/dL 7-25 normal Not Available [address], [address], 11/05/2024 22:16:14 11/04/20 24 11/05/2024 COMPR EHENS KAREN METAB OLIC PANEL creatinine 0.90 mg/dL 0.50-1 .05 normal Not Available [address], [address], 11/05/2024 22:16:14 11/04/20 24 11/05/2024 COMPR EHENS KAREN METAB OLIC PANEL eGFR 70 mL/mi n/1.7 3m2 > or = 60 normal Not Available [address], [address], 11/05/2024 22:16:14 11/04/20 24 11/05/2024 COMPR EHENS KAREN METAB OLIC PANEL BUN/creatini ne ratio SEE NOTE: (calc ) 6-22 Not Repor eddie: BUN and Creat inine are withi n refer ence range . Not Available [address], [address], 11/05/2024 22:16:14 11/04/20 24 11/05/2024 COMPR EHENS KAREN METAB OLIC PANEL sodium 136 mmol/ L 135-14 6 normal Not Available [address], [address], 11/05/2024 22:16:14 11/04/20 24 11/05/2024 COMPR EHENS KAREN METAB OLIC PANEL potassium 5.0 mmol/ L 3.5-5. 3 normal Not Available [address], [address], 11/05/2024 22:16:14 11/04/20 24 11/05/2024 COMPR EHENS KAREN METAB OLIC PANEL chloride 100 mmol/ L 98-110 normal Not Available [address], [address], 11/05/2024 22:16:14 11/04/20 24 11/05/2024 COMPR EHENS KAREN METAB OLIC PANEL carbon dioxide 26 mmol/ L 20-32 normal Not Available [address], [address], 11/05/2024 22:16:14 11/04/20 24 11/05/2024 COMPR EHENS KAREN METAB OLIC PANEL calcium 10.6 mg/dL 8.6-10 .4 high Not Available [address], [address], 11/05/2024 22:16:14 11/04/20 24 11/05/2024 COMPR EHENS KAREN METAB OLIC PANEL protein, total 7.9 g/dL 6.1-8. 1 normal Not Available [address], [address], 11/05/2024 22:16:14 11/04/20 24 11/05/2024 COMPR EHENS KAREN METAB OLIC PANEL albumin 4.6 g/dL 3.6-5. 1 normal Not Available [address], [address], 11/05/2024 22:16:14 11/04/20 24 11/05/2024 COMPR EHENS KAREN METAB OLIC PANEL globulin 3.3 g/dL_ (calc ) 1.9-3. 7 normal Not Available [address], [address], 11/05/2024 22:16:14 11/04/20 24 11/05/2024 COMPR EHENS KAREN METAB OLIC PANEL albumin/glob ulin ratio 1.4 (calc ) 1.0-2. 5 normal Not Available [address], [address], 11/05/2024 22:16:14 11/04/20 24 11/05/2024 COMPR EHENS KAREN METAB OLIC PANEL bilirubin, total 0.4 mg/dL 0.2-1. 2 normal Not Available [address], [address], 11/05/2024 22:16:14 11/04/20 24 11/05/2024 COMPR EHENS KAREN METAB OLIC PANEL alkaline phosphatase 93 U/L 37-153 normal Not Available [facility] [employer] [address], [address], 11/05/2024 22:16:14 11/04/20 24 11/05/2024 COMPR EHENS KAREN METAB OLIC PANEL AST 20 U/L 10-35 normal Not Available [address], [address], 11/05/2024 22:16:14 11/04/20 24 11/05/2024 COMPR EHENS KAREN METAB OLIC PANEL ALT 20 U/L 6-29 normal Not Available [address], [address], 11/05/2024 22:16:14 11/04/20 24 11/05/2024 CBC (INCL UDES DIFF/ PLT) white blood cell count 6.2 thous and/u L 3.8-10 .8 normal Not Available [address], [address], 11/05/2024 22:16:16 11/04/20 24 11/05/2024 CBC (INCL UDES DIFF/ PLT) red blood cell count 4.59 konrad on/uL 3.80-5 .10 normal Not Available [address], [address], 11/05/2024 22:16:16 11/04/20 24 11/05/2024 CBC (INCL UDES DIFF/ PLT) hemoglobin 14.3 g/dL 11.7-1 5.5 normal Not Available [address], [address], 11/05/2024 22:16:16 11/04/20 24 11/05/2024 CBC (INCL UDES DIFF/ PLT) hematocrit 42.7 % 35.0-4 5.0 normal Not Available [address], [address], 11/05/2024 22:16:16 11/04/20 24 11/05/2024 CBC (INCL UDES DIFF/ PLT) MCV 93.0 fL 80.0-1 00.0 normal Not Available [address], [address], 11/05/2024 22:16:16 11/04/20 24 11/05/2024 CBC (INCL UDES DIFF/ PLT) MCH 31.2 pg 27.0-3 3.0 normal Not Available [address], [address], 11/05/2024 22:16:16 11/04/20 24 11/05/2024 CBC (INCL UDES DIFF/ PLT) MCHC 33.5 g/dL 32.0-3 6.0 normal For adult s, a sligh t decre ase in the calcu lated MCHC value (in the range of 30 to 32 g/dL) is most likel y not clini keara signi rosalie t; rich er, it shoul d be inter prete d with cauti [place] [facility] with other red cell corbin eters and the patie nt's clini tiny condi tion. Not Available [facility] [address], [address], 11/05/2024 22:16:16 11/04/20 24 11/05/2024 CBC (INCL UDES DIFF/ PLT) RDW 12.9 % 11.0-1 5.0 normal Not Available [address], [address], 11/05/2024 22:16:16 11/04/20 24 11/05/2024 CBC (INCL UDES DIFF/ PLT) platelet count 308 thous and/u L 140-40 0 normal Not Available [address], [address], 11/05/2024 22:16:16 11/04/20 24 11/05/2024 CBC (INCL UDES DIFF/ PLT) MPV 11.1 fL 7.5-12 .5 normal Not Available [address], [address], 11/05/2024 22:16:16 11/04/20 24 11/05/2024 CBC (INCL UDES DIFF/ PLT) absolute neutrophils 3404 cells /uL 1500-7 800 normal Not Available [address], [address], 11/05/2024 22:16:16 11/04/20 24 11/05/2024 CBC (INCL UDES DIFF/ PLT) absolute lymphocytes 2065 cells /uL 850-39 00 normal Not Available [address], [address], 11/05/2024 22:16:16 11/04/20 24 11/05/2024 CBC (INCL UDES DIFF/ PLT) absolute monocytes 546 cells /uL 200-95 0 normal Not Available [address], [address], 11/05/2024 22:16:16 11/04/20 24 11/05/2024 CBC (INCL UDES DIFF/ PLT) absolute eosinophils 149 cells /uL 15-500 normal Not Available [address], [address], 11/05/2024 22:16:16 11/04/20 24 11/05/2024 CBC (INCL UDES DIFF/ PLT) absolute basophils 37 cells /uL 0-200 normal Not Available [address], [address], 11/05/2024 22:16:16 11/04/20 24 11/05/2024 CBC (INCL UDES DIFF/ PLT) neutrophils 54.9 % normal Not Available [address], [address], 11/05/2024 22:16:16 11/04/20 24 11/05/2024 CBC (INCL UDES DIFF/ PLT) lymphocytes 33.3 % normal Not Available [address], [address], 11/05/2024 22:16:16 11/04/20 24 11/05/2024 CBC (INCL UDES DIFF/ PLT) monocytes 8.8 % normal Not Available [address], [address], 11/05/2024 22:16:16 11/04/20 24 11/05/2024 CBC (INCL UDES DIFF/ PLT) eosinophils 2.4 % normal Not Available [address], [address], 11/05/2024 22:16:16 11/04/20 24 11/05/2024 CBC (INCL UDES DIFF/ PLT) basophils 0.6 % normal Not Available [address], [address], 11/05/2024 22:16:16 11/04/20 24 11/04/2024 HbA1c (hemo globi n A1c), blood HbA1c 5.5 Not Available In-Office Order Internal Use Only DO Not Attach Compendium DO Not Attach Compendium, Do Not Delete/merge, [id number] 11/04/2024 11:16:44 05/30/20 23 bone densi ty/de xa [facility] [place] [address] EXAMIN ATION: BONE DENSIT Y/DEXA ACCESS ION: [id number] INDICA TIONS: evalua tion for osteop [...] re: 8.4% Hip Fractu re: 0.9% IMPRES ANUP: WHO Classi ficati on: Osteop enia. RECOMM [...] Adelfo Parra MD, 023 10:[email or web address] [facility] [address] [facility], [place], [address], 06/05/2023 12:06:18 05/30/20 23 MAMMO , scree jose a, tomos ynthe sis, bilat eral [facility] [place] [address] This is a summar y report . The comple te report is availa ble in the patien t's medica l record . If you cannot access the medica l record , please contac t the sendin g organi jesus for a detail ed fax or copy. EXAMIN ATION: Digita l bilate ral screen ing mammog pamela with 3-D tomosy nthesi s ACCESS ION: [id number] EXAM DATE/T ILIANA: 023 11:10 AM REASON FOR EXAM: visit for screen ing mammo COMPAR TANIA: May 2022, May 2021, May 2016 TECHNI QUE: Digita l screen ing mammog matt of both breast s was perfor med in additi on to 3-D Tomosy nthesi s techni que. This study was read with the assist ance of a [employer] er-aid ed detect ion system . TISSUE [...] By: Asher barrera MD, 023 12:[email or web address] [facility] [address] [facility], [place], [address], 06/20/2023 09:57:45 05/30/20 23 05/30/2023 MAMMO , scree jose a, bilat eral No observ ation record ed. [email or web address] [facility] [address] [facility], [place], [address], 06/05/2023 12:06:42 05/28/20 25 MAMMO , scree jose a, tomos ynthe sis, bilat eral [facility] [place] [address] This is a summar y report . The comple te report is availa ble in the patien t's medica l record . If you cannot access the medica l record , please contac t the sendin susan lee for a detail ed fax or copy. [facility] [address] [facility] [place] , [place] [id number] EXAMIN ATION: Digita l bilate ral screen ing mammog pamela with 3-D tomosy nthesi s ACCESS ION: [id number] EXAM DATE/T ILIANA: 025 11:09 AM REASON FOR EXAM: Screen ing Breast carcin mandeep in mother at age 46. Deceas ed at age 84. COMPAR TANIA: 022. 023 Techni que: Digita l screen ing mammog matt of both breast s was perfor med in additi on to 3-D Tomosy nthesi s techni que. This study was read with the assist ance of a [employer] er-aid ed detect ion system . Tissue densit y: There are scatte red areas of fibrog landul ar densit y. Findin gs: There is no new focal asymme try, domina nt mass lesion , area of skin thicke jose a, or cluste r of suspic ious appear ing calcif icatio ns in either breast to sugges t malign laurent. ===== IMPRES ANUP: ===== 1. Stable mammog raphic appear ance with no new findin gs to sugges t malign laurent in either breast . Assess ment: ACR BI-RAD S 2 - BENIGN FINDIN G(S) Recomm endati on: 1:Rout ine Screen ing Bilate ral Commen ts: ====== ====== ====== ====== Ordere d By: CHARITO BAJWA Electr onical ly Signed By: João Mckeon on 1:39 PM Interp reted By: João Mckeon , 1:33 PM [facility] [address], [place], [address], 05/29/2025 11:01:54 05/28/20 25 05/28/2025 MAMMO , scree jose a, digit al, bilat eral No observ ation record ed. [facility] [address] [facility], [place], [address], 05/29/2025 11:01:54 Result Notes Documentation Provider Name and Address Organization Details Recorded Time Mammo, Screening, Tomosynthesis, Bilateral : [place] [address] This is a summary report. The complete [...] By: Asher James MD, 05/30/2023 12:15 PM SYDNIE Dunn [facility] 06/20/2023 09:57:45 Mammo, Screening, Tomosynthesis, Bilateral : [place] [address] This is a summary report. The complete report is available in the patient's medical record. If you cannot access the medical record, please contact the sending organization for a detailed fax or copy. [address] [id number] EXAMINATION: Digital bilateral screening mammogram with 3-D tomosynthesis EXAM DATE/TIME: 05/28/2025 11:09 AM REASON FOR EXAM: Screening Breast carcinoma in mother at age 46. at age 84. COMPARISON: 05/26/2022. 05/30/2023 Technique: Digital screening mammography of both breasts was performed in addition to 3-D Tomosynthesis technique. This study was read with the assistance of a computer-aided detection system. Tissue density: There are scattered areas of fibroglandular density. Findings: There is no new focal asymmetry, dominant mass lesion, area of skin thickening, or cluster of suspicious appearing calcifications in either breast to suggest malignancy. ===== IMPRESSION: ===== 1. Stable mammographic appearance with no new findings to suggest malignancy in either breast. 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 Casa Lowe MD Attn: Abigail davis,[address] [place], [address], [facility] 3 11:21:32 Hypersomnia with sleep apnea 22038522 Completed 201306/05/2014 Casa Lowe MD Attn: Abigail davis,[address] [place], [address], [facility] 3 11:32:16 Low back pain 726067103 Active 2013 Casa Lowe MD Attn: Abigail davis[address] [place], [address], [place] [facility] 3 11:21:17 Spinal stenosis of lumbar region 49453546 Active 2013 Casa Lowe MD Attn: Abigail susan,[address] [facility], [place], [address], [place] [facility] 3 11:21:40 Neurogenic claudicatio n 301293052 Active 2013 Casa Lowe MD Attn: Abigail davis,[address] [facility], [place], [address], [place] [facility] 3 11:21:24 Benign essential hypertensio n 2960386 Active 2014 Casa Lowe MD Attn: Abigail davis,[address] [facility], [place], [address], [place] [facility] 3 11:22:06 Screening for malignant neoplasm of colon Completed 201404/17/2023 Casa Lowe MD Attn: Abigail davis,[address] [facility], [place], [address], [place] [facility] 3 11:22:20 Obstructive sleep apnea syndrome 61859212 Active 2015 Casa Lowe MD Attn: Abigail davis,[address] [facility], [place], [address], [place] [facility] 3 11:21:28 Mixed hyperlipide yahir 497400397 Active 2015 Casa Lowe MD Attn: Abigail davis,[address] [facility], [place], [address], [place] [facility] 3 11:21:20 Prediabetes 265136548 Active 2018 Casa Lowe MD Attn: Abigail davis,[address] [facility], [place], [address], [place] [facility] 3 11:22:06 Body mass index 30+ - obesity 885124917 Active 2022 Casa Lowe MD Attn: Abigail davis,[address] [facility], [place], [address], [place] [facility] 3 14:08:22 Long-term drug therapy Active 2022 Casa Lowe MD Attn: Abigail susan,[address] [facility], [place], [address], [place] [facility] 3 14:08:29 Sesamoiditi s 76131598 Completed 202201/13/2024 Casa Lowe MD Attn: Abigail susan,[address] [facility], [place], [address], [place] [facility] 4 08:27:15 Osteopenia 295632567 Active 2022 Casa Lowe MD Attn: Abigail susan,[address] [facility], [place], [address], [place] [facility] 3 13:47:51 Asthmatic bronchitis 391105690 Active 2022 Casa Lowe MD Attn: Abigail susan,[address] [facility], [place], [address], [place] [facility] 3 13:50:47 Liver enzymes level above reference range 864997369 Active 2023 Casa Lowe MD Attn: Abigail susan,[address] [facility], [place], [address], [place] [facility] 4 16:28:08 Vitamin D deficiency 41569760 Active 2023 Casa Lowe MD Attn: Abigail susan,[address] [facility], [place], [address], [place] [facility] 4 08:27:29 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 Procedures Surgical History Date Name Laterality Status Provider Name and Address Organization Details Recorded Time total hysterectomy completed DAO Whyte Attn: Accounting,[address], [place], [address], [facility] 05/21/2025 14:55:50 Imaging Results None recorded. Procedure Notes None recorded. Medical Equipment None Reported. Allergies Allergen ID Allergen Name Allergen Category Reaction Reaction Severity Criticality Documentation Date Start Date Code Code System Note Provider Name and Address Organization Details Recorded Time 04002 Non-stero idal anti-infl ammatory agent (substanc e) medicatio n Not available Not available Not available 10/18/2016 23250 5008 SNOMED Nidhi [facility] 6 11:19:10 Medications Name Sig Start Date [...] one PO daily 06/22 completed RxNor m: 38749 7;All ow Subst ituti on: True Not [...] 8 hours prn 11/05 completed RxNor m: 42344 6;All ow Subst ituti on: True Not [...] (BMI) Body weight Body temperature Oxygen saturation Heart rate Systolic And Diastolic Provider Name and Address Organization Details Last Updated DateTime 3 157.48 cm 37.2 kg/m2 11902.9 5 g 97 [degF] 95 % 62 /min 151/82 mm[Hg] Estela Polanco MA [facility] 3 11:10:40 Date Recorded Body height Body temperature Heart rate Oxygen saturation Body mass index (BMI) Body weight Systolic And Diastolic Provider Name and Address Organization Details Last Updated DateTime 4 157.48 cm 98.6 [degF] 72 /min 95 % 39.9 kg/m2 49565.2 4 g 129/72 mm[Hg] Gia Red MA [facility] 4 12:03:31 Date Recorded Body height Oxygen saturation Heart rate Body temperature Systolic And Diastolic Provider Name and Address Organization Details Last Updated DateTime 5 157.48 cm 97 % 60 /min 98 [degF] 123/75 mm[Hg] Cindy Ann MA [facility] 5 15:46:26 Date Recorded Body height Body mass index (BMI) Body weight Body temperature Oxygen saturation Heart rate Systolic And Diastolic Provider Name and Address Organization Details Last Updated DateTime 4 157.48 cm 33.8 kg/m2 16991.1 5 g 97.1 [degF] 100 % 67 /min 130/60 mm[Hg] Alissa Perry MA [facility] 4 14:56:53 Date Recorded Body height Body temperature Heart rate Oxygen saturation Systolic And Diastolic Provider Name and Address Organization Details Last Updated DateTime 3 157.48 cm 97.2 [degF] 86 /min 96 % 146/76 mm[Hg] Mamadou Jenkins MA [facility] 3 12:20:05 Social History Question Answer Notes LastModified by [employer] Details LastModified Time Tobacco Smoking Status [facility] 10/18/2016 11:03:08 Do You Have An Advance Directive? No Information not available 05/20/2025 Are You Blind Or Do You Have Difficulty Seeing? No Information not available 05/20/2025 What Is Your Level Of Caffeine Consumption? Occasional Information not available 04/13/2021 Are You Deaf Or Do You Have Serious Difficulty Hearing? Yes Information not available 05/20/2025 What Type Of Diet Are You Following? REGULAR Information not available 05/20/2025 What Was The Date Of Your Most Recent Tobacco Screening? 05/20/2025 Information not available 05/20/2025 Do You Use Your Seat Belt Or Car Seat Routinely? Yes Information not available 05/20/2025 Has Tobacco Cessation Counseling Been Provided? No Information not available 04/13/2021 Sex: Female Functional Status Question Answer Note LastModified by [employer] ion Details LastModified Time Do you use any illicit or recreational drugs? No Information not available 04/13/2021 Do you or have you ever used any other forms of tobacco or nicotine? No Information not available 04/13/2021 What is your level of alcohol consumption? None Information not available 04/13/2021 Are you currently employed? Yes Information not available 05/20/2025 Are you able to care for yourself independently? Yes Information not available 05/20/2025 What is your exercise level? Occasional Information not available 05/20/2025 Mental Status Question Answer Note LastModified by Organization D etails LastModified Time Do you feel stressed (tense, restless, nervous, or anxious, or unable to sleep at night)? [id number] Information not available 05/20/2025 Family History Relationship Description Onset Age of this Age Resolved Age Notes LastModified by Organization Details LastModified Time Mother Malignant neoplasm of breast hreedma Not available 2015 11:03:16 [...] virus, quadrivalent, preservative 0 completed Not Available [facility] 10/28/2022 11:07:43 Influenza, split virus, quadrivalent, preservative 1 completed DAO Whyte Attn: Accounting,[address] [facility], [place], [address], [facility] 05/20/2025 15:57:42 COVID-19, mRNA, LNP-S, PF, 30 mcg/0.3 mL dose 1 completed DAO Whyte Attn: Accounting,[address] [facility], [place], [address], [place] [facility] 05/20/2025 15:57:42 Influenza, high-dose, trivalent, PF 4 completed [facility] [place] null, [place] [facility] 09/23/2024 11:16:42 COVID-19, mRNA, LNP-S, PF, mushtaq-sucrose, 30 mcg/0.3 mL 4 completed [place], [place] [facility] 09/23/2024 11:17:00 pneumococcal polysaccharide PPV23 4 completed [place], [place] [facility] 11/07/2024 13:28:29 Influenza, split virus, trivalent, preservative 3 completed Not Available [facility] 05/20/2025 15:28:00 COVID-19, mRNA, LNP-S, PF, 100 mcg/0.5mL dose or 50 mcg/0.25mL dose 1 completed Not Available [facility] 05/20/2025 15:28:00 COVID-19, mRNA, LNP-S, PF, 100 mcg/0.5mL dose or 50 mcg/0.25mL dose 1 completed Not Available [facility] 05/20/2025 15:28:00 zoster recombinant 3 completed Not Available [facility] 05/20/2025 15:28:00 zoster recombinant 3 completed Not Available [facility] 05/20/2025 15:28:00 RSV, recombinant, protein subunit RSVpreF, adjuvant reconstituted, 0.5 mL, PF 3 completed Not Available [facility] 05/20/2025 15:28:00 COVID-19, mRNA, LNP-S, PF, mushtaq-sucrose, 30 mcg/0.3 mL 3 completed Not Available [facility] 05/20/2025 15:28:00 Influenza, adjuvanted, quadrivalent, PF 3 completed [facility] 05/20/2025 15:28:00 Influenza, split virus, quadrivalent, preservative 6 completed Not Available [facility] 10/28/2022 11:07:43 Tdap 5 completed Not Available [facility] 10/28/2022 11:07:43 Influenza, split virus, quadrivalent, preservative 5 completed Not Available [facility] 10/28/2022 11:07:43 Influenza, split virus, trivalent, preservative 1 completed Not Available [facility] 10/28/2022 11:07:43 Tdap 5 completed Cindy Ann MA [facility], [place] [facility] [place] 05/20/2025 16:38:58 influenza, unspecified formulation 7 completed Not Available [facility] 10/28/2022 11:07:43 Past Encounters Encounter ID Performer Location Encounter Start Date Encounter Closed Date Diagnosis/Indication Diagnosis SNOMED-CT Code Diagnosis ICD10 Code Diagnosis IMO Codes Diagnosis Note [id number] Cielo Alston MD [facility] [address] [place] [address] 10/18/2016 10:51:32 10/21/2016 11:50:08 Acquired trigger finger 7203038 M65.30 Essential hypertension 36149667 I10 [id number] Cielo Alston MD [facility] [address] [place] [address] 04/13/2017 09:59:37 04/13/2017 13:39:42 Benign essential hypertension 3880796 I10 Intentiona l weight loss 351508039 R63.8 weight watchers -- 30 pounds [id number] Cielo Alston MD [facility] [address] [place] [address] 10/19/2017 10:44:51 10/19/2017 16:49:41 Benign essential hypertension 6387702 I10 BP currently well-contr olled. Patient to continue current medication s. Hyperlipid emia screening 428264984 Z13.188 [id number] Cielo Alston MD [facility] [address] [place] [address] 04/30/2018 15:48:44 05/01/2018 13:53:20 Benign essential hypertension 1215692 I10 BP currently well-contr olled. Patient to continue current medication s. Mixed hyperlipidemia 267 994223 E78.2 Intentiona l weight loss 921061349 R63.8 weight watchers -- now 50 pounds Acute back pain with sciatica 619837914 M54.42 [id number] Ashley Gore MD [facility] [address] [place] [address] 07/19/2018 10:12:16 07/20/2018 09:55:36 Contact dermatitis 49248871 L25.9 stay cool, cont Benadryl at night as needed [id number] Cielo Alston MD [facility] [address] [place] [address] 10/30/2018 10:39:55 10/31/2018 10:50:37 Benign essential hypertension 8848022 I10 BP currently well-contr olled. Patient to continue current medication s. Mixed hyperlipidemia 267 797107 E78.2 Eczema 49883863 L30.9 Viral screening 52413247 4 Z11.59 Screening for malignant neoplasm of breast 321713428 Z12.31 Body mass index 30+ - obesity 188743614 Z68.32 Spinal bam nosis of lumbar region 17700823 M48.606 [id number] Cielo Alston MD [facility] [address] [place] [address] 11/16/2018 13:23:33 11/16/2018 15:40:20 Cellulitis of toe of left foot 8128987659 9964715 L03.032 if any fevers or chills or streaking head to ER this weekend [id number] Cielo Alston MD [facility] [address] [place] [address] 04/29/2019 11:52:43 04/29/2019 13:01:00 Benign essential hypertension 5026349 I10 BP currently well-contr olled. Patient to continue current medication s. Mixed hyperlipidemia 267 208219 E78.2 Unintentio nal weight gain [id number] 27649 R63.5 Body mass index 30+ - obesity 543733998 Z68.32 Family his tory of diabetes mellitus 568849266 Z83.3 Deformity of bone in foot 105678692 M21.6X9 Eczema 09544809 L30.9 Low back pain 013988363 M54.5 [id number] Cielo Alston MD [facility] [address] [place] [address] 11/10/2020 09:20:52 11/11/2020 17:18:41 Prediabetes 289556065 R73.03 Mixed hyperlipidemia 267 634831 E78.2 Essential hypertension 76919864 I10 Sesamoiditis 56407044 M2 5.80 [id number] Cielo Alston MD [facility] [address] [place] [address] 04/13/2021 15:27:13 04/13/2021 17:27:24 Benign essential hypertension 0377254 I10 Mixed hyperlipidemia 267 784513 E78.2 Prediabetes 295756226 R7 3.03 Obstructiv e sleep apnea syndrome 11673342 G47.33 sleep study at [facility] 05/2014 Screening for malignant neoplasm of breast 701752757 Z12.31 [id number] Cielo Alston MD [facility] [address] [place] [address] 08/15/2022 10:16:44 08/15/2022 20:39:27 Benign essential hypertension 8254594 I10 Mixed hyperlipidemia 267 627506 E78.2 Osteomyelitis 78352734 M 86.9 left foot sesmoid bone Prediabetes 437397643 R7 3.03 [id number] Casa Lowe MD [facility] [address] [place] [address] 12/20/2022 14:23:01 12/21/2022 10:33:28 Pre-surgery evaluation 818162379 Z01.818 Presently clinically stable for scheduled surgeryAvo [...] - routine perioperat karen precaution s Sesamoiditis 75019122 M2 5.80 - planned surgical excision [id number] Casa Lowe MD [facility] [address] [facility] [place] [place] [address] 04/17/2023 10:50:14 04/18/2023 11:12:56 Benign essential hypertension 2505677 I10 # HTN - Nearly controlled - Continue current medication s. No change in management - Encouraged routine blood pressure checksat home, targetless than 140/90 - DiscussedD FORREST diet(https ://www.nhl bi.nih.gov /files/doc s/public/h eart/dash_ brief.pdf) anddietary sodium restrictio ns - Continue/I ncrease dietary efforts and physical activity Mixed hyperlipidemia 267 443173 E78.2 # Hyperlipid emia - Last lipid panel < 1 year ago - ACC/AHA CV risk > 7.5% (11.1% - blood pressure) - Repeat prior to next visit - Continue with current management without changes. - Focus on a dietlow in saturated fats(https ://www.[facility] Tax Alli.or g/educatio n/guidelin es-for-a-l ow-cholest lynnette-low-s aturated-f at-diet),b lood pressure control,sm oking cessation( http://cassia tyes.org/) anddaily exerciseto reduce your risk ofheart disease and stroke. Obstructiv e sleep apnea syndrome 71323977 G47.33 # JESSIKA on CPAPGood compliance .Symptoms improved.C ontinue to monitor. Prediabetes 715765058 R7 3.03 Continue dietary and lifestyle interventi ons Low back pain 098058545 M54.51 - stable, working on increasing exercise Body mass index 30+ - obesity 367206002 Z68.37 Focus on a healthy diet, avoid added salt, and lboxeg0338 calories or less daily. Exercise as tolerated, targeting3 0-60 minutes of exercise daily, at least 5 days per week Long-term drug therapy 554661359 Z79.899 Checking routine labwork prior to follow-up for ongoing long-term medication use. Menopause present 721985 006 Z78.0 [id number] Casa Lowe MD [facility] [address] [facility] [place] [place] [address] 11/09/2023 11:56:09 11/10/2023 10:42:13 Benign essential hypertension 9867395 I10 # HTN - Nearly controlled - Continue current medication s. No change in management - Encouraged routine blood pressure checksat home, targetless than 140/90 - DiscussedD FORREST diet(https ://www.nhl bi.nih.gov /files/doc s/public/h eart/dash_ brief.pdf) anddietary sodium restrictio ns - Continue/I ncrease dietary efforts and physical activity Mixed hyperlipidemia 267 553763 E78.2 # Hyperlipid emia- Last lipid panel > 1 year ago- ACC/AHA CV risk > 7.5%- Repeat today- Continue with current management without changes.- Focus on a dietlow in saturated fats(https ://www.[facility] TV TubeXealth.or g/educatio n/guidelin es-for-a-l ow-cholest lynnette-low-s aturated-f at-diet),b lood pressure control,sm oking cessation( http://cassia tyes.org/) anddaily exerciseto reduce your risk ofheart disease and stroke. Prediabetes 062292482 R7 3.03 Continue dietary and lifestyle interventi ons Body mass index 30+ - obesity 304505298 Z68.37 Focus on a healthy diet, avoid added salt, and gkhkio0185 calories or less daily. Exercise as tolerated, targeting3 0-60 minutes of exercise daily, at least 5 days per week Long-term drug therapy 082187309 Z79.899 Checking routine labwork prior to follow-up for ongoing long-term medication use. Obstructiv e sleep apnea syndrome 00536560 G47.33 # JESSIKA on CPAPGood compliance .Symptoms improved.C ontinue to monitor. Low back pain 942050428 M54.51 - stable, working on increasing exercise Osteopenia 271220824 M85 .80 - continues on vitamin D, calcium, working toward exercise Asthmatic bronchitis 405 211691 J45.909 Likely viral.Reas surance. Supportive care.Incre ase [...] next several days, or if getting worse. [id number] Casa Lowe MD [facility] [address] [facility] [place] [place] [address] 05/06/2024 11:17:38 05/06/2024 21:11:04 Benign essential hypertension 0744848 I10 # HTNControl ledContinu e current medication s. No change in management Encouraged routine blood pressure checksat home, targetless than 140/90Disc ussedDASH diet(https ://www.nhl bi.nih.gov /files/doc s/public/h eart/dash_ brief.pdf) anddietary sodium restrictio nsContinue /Increase dietary efforts and physical activity Mixed hyperlipidemia 267 035687 E78.2 # Hyperlipid emia Last lipid panel < 1 year ago ACC/AHA CV risk > 7.5% (7.8% w/ controlled systolic blood pressure) Repeat prior to next visit Continue with current management without changes. Focus on a dietlow in saturated fats(https ://www.[facility] fhealth.or g/educatio n/guidelin es-for-a-l ow-cholest lynnette-low-s aturated-f at-diet),b lood pressure control,sm oking cessation( http://cassia tyes.org/) anddaily exerciseto reduce your risk ofheart disease and stroke. Prediabetes 744684003 R7 3.03 6.5 at last check - repeat todayConti nue dietary and lifestyle interventi ons Obstructiv e sleep apnea syndrome 60116368 G47.33 # JESSIKA on CPAPGood compliance .Symptoms improved.C ontinue to monitor. Low back pain 303216899 M54.51 - stable, working on increasing exercise Body mass index 30+ - obesity 568196410 Z68.37 Focus on a healthy diet, avoid added salt, and nkacfy2143 calories or less daily. Exercise as tolerated, targeting3 0-60 minutes of exercise daily, at least 5 days per week Long-term drug therapy 169782520 Z79.899 Checking routine labwork prior to follow-up for ongoing long-term medication use. Osteopenia 211677168 M85 .80 - continues on vitamin D, calcium, working toward exercise Liver enzy mes level above reference range 205393953 R74.01 recheck today Vitamin D deficiency 347 62880 E55.9 recheck vitamin D [id number] Ashley Gore MD [facility] [address] [place] [address] 11/04/2024 14:43:38 11/04/2024 16:32:06 Benign essential hypertension 8375842 I10 -Controlle d on current therapy.-G oals: BP < 140/90 per JNC8, prevent CV and renal comorbidit ies.-Shoul d notify office for BP less than 90/60.-Cindy ntain a low sodium (less than 2000mg) diet and encouraged at least 30-45 minutes of aerobic activity most days of the week-Healt hy weight-f/u 6 months Mixed hyperlipidemia 267 318100 E78.2 Follow a low fat and low [...] days a week).Avoi d tobacco products. Prediabetes 391936207 R7 3.03 -A1C still consistent with prediabete s at 5.5-Advise d to cut the carbohydra amanda in diet (bread, pasta, rice, potatoes, and sweets) and increase physical activity to goal of 150 min of aerobic activity weekly.-re check A1C in 6 months Liver enzy mes level above reference range 001078846 R74.01 -pt liver enzymes were elevated at last visit, will recheck and if still elevated will refer to heptologis t for fatty liver evaluation . Pt agrees. Obesity 431910512 E66.9 -pt has been consistent ly following [...] dinner.5. Increase Exertion within Daily Activities : 7500-16133 Steps/day. Avoid Elevators, escalators at public places. Increase steps in parking lots! Contact dermatitis 28995 004 L25.9 -pt to apply triamcinol one cream 2x/day for 2 weeks. If not better or gets worse pt instructed to make a f/u appt sooner than 6 months. [id number] Ashley Gore MD [facility] [address] [place] [address] 05/20/2025 15:19:40 05/21/2025 11:49:48 Adult health examination 235728074 Z00.00 Health Risk Assessment collected and reviewedPa alisia does not have a current living will.AD8-n ormal, no memory concerns.N o real safety concerns she is just being more cautious. Benign ess ential hypertension 6114583 I10 -Controlle d on current therapy. -Goals: BP < 140/90 per JNC8, prevent CV and renal comorbidit ies. -Should notify office for BP less than 90/60. -Maintain a low sodium (less than 2000mg) diet and encouraged at least 30-45 minutes of aerobic activity most days of the week -Healthy weight -f/u 6 months Mixed hyperlipidemia 267 689066 E78.2 Follow a low fat and low [...] days a week).Avoi d tobacco products. Prediabetes 670000662 R7 3.03 -A1C still consistent with prediabete s at 5.5-Advise d to cut the carbohydra amanda in diet (bread, pasta, rice, potatoes, and sweets) and increase physical activity to goal of 150 min of aerobic activity weekly.-re check A1C in 6 months Obese class I [id number] 87396 E66.811 3360389284 -heart healthy diet and routine exercise discussed and f/u yearly Obstructiv e sleep apnea syndrome 89152776 G47.33 -wears CPAP machine Screening mammography 24 640085 Z12.31 97478988 Screening for malignant neoplasm of colon 542726042 Z12.11 740967 Requires d iphtheria, tetanus and pertussis vaccination 358346405 Z23 463588 Abdominal aortic aneurysm screening 754349042 Z13.6 312756 -advised and declined at this time but would like it next year DXA scan declined 314815 009 Z53.20 0771278403 -advised and declined at this time but would like it next year Health Concerns Section Related Observation LastModified by Organization Tristan brewster LastModified Time None Recorded Concern Status LastModified by Organization Details LastModified Time None Recorded Advance Directives Directive N: Payers Insurance Date Sequence Insurance Name Policy Number Policy Ludiwg Covered Member ID Ludwig Member ID Guarantor Name 06/25/2025 2 [employer] (MEDICARE SUPPLEMENT) PLAN Susan Rodriguez [id number] Parvin Rodriguez 05/17/2025 [place] - [facility] Parvin Rodriguez [id number] Parvin Rodriguez 05/17/2025 1 [place] Parvin Rodriguez [id number] Parvin Rodriguez 04/14/2021 1 [facility] [id number] Parvin Rodriguez [id number] Parvin Rodriguez 11/16/2018 1 [facility] ([facility]) [id number] Parvin Rodriguez [id number] Parvin Rodriguez Notes Date Note Type Note Provider Name and Address Organization Details Recorded Time 3 text/html Hypertension F/UReported by PatientHPIFor associated symptoms, patient reportsno dizziness,no lightheadedness,no chest pain,no shortness of breath,no palpitations,no edema, andno calf pain with exertion. For medications, patient reportstaking medications as directedandno side effects from medication.ROS as noted in the HPI 6+-MONTH FOLLOW-UP VISIT/SUBJECTIVE: The patient presents for routine 6+-month follow-up of hypertension and hyperlipidemia, among other chronic conditions Last routine follow-up office visit: [id number] labwork: 9Feb22 (BMP), 5OCt22 (hemoglobin A1c), 69Ymj71 (lipids) Patient reports consistent use of medications, [...] Well-woman exam: hysterectomy - not applicable- Mammography: 37Opg23- DEXA: remoteORDER Hypertension - On losartan, hydrochlorothiazide - Consistent use of medications - Does not report any headaches, blurry vision, dizziness, chest pain, shortness of breath, or palpitations - chronic blurry vision - follows with eye lawn care professional - Not following a low salt diet. [...] looking toward water aerobics/swimming as good options -Combat Systems Operator/Nursing note reviewed.- Casa Lowe MD Attn: Accounting,[address] [facility], [place], [address], [facility] 04/17/2023 13:12:08 3 text/html Hypertension F/UReported by PatientHPIFor lifestyle, patient reportshigh salt intakebut reportsregular exercise. For associated symptoms, patient reportsno dizziness,no lightheadedness,no chest pain,no shortness of breath,no palpitations,no edema, andno calf pain with exertion. For medications, patient reportstaking medications as directedandno side effects from medication.ROS as noted in the HPI 6+-MONTH FOLLOW-UP VISIT/SUBJECTIVE: Parvin presents for routine 6-month follow-up of hypertension and hyperlipidemia, among other chronic conditions Last routine follow-up office visit: 5Lny67Vjyc labwork: 9Feb23 ([facility]) Patient reports consistent use of medications, without side effects or intolerances. Current concerns:- cough - 10-14 days-- intermittent-- some production-- minimal nocturnal cough-- no fevers or chills. no night sweats-- no chest pain or dyspnea-- Using vdos-lcw-jplnqyy meds with some relief. (cough drops, Coricidin HBP) - throbbing pain to left postauricular area-- ongoing for less than a week-- recent dental work Health maintenance:- Immunizations due: pneumococcal- Colorectal cancer screening: remote - at [place]?- Well-woman exam: hysterectomy - not applicable- Mammography: 23Ngv78- DEXA: 70Geq96 - osteopenia Hypertension- On losartan, hydrochlorothiazide- Consistent use of medications- Does not report any headaches, blurry vision, dizziness, chest pain, shortness of breath, or palpitations - chronic blurry vision - follows with eye lawn care professional- Not following a low salt diet.- Exercising [...] looking toward water aerobics/swimming as good options -Combat Systems Operator/Nursing note reviewed.- Casa Lowe MD Attn: Accounting,[address] [facility], [place], [address], [facility] 11/09/2023 14:05:03 4 text/html Hypertension F/UReported by PatientHPIFor lifestyle, patient reportshigh salt intakebut reportsregular exercise. For associated symptoms, patient reportsno dizziness,no lightheadedness,no chest pain,no shortness of breath,no palpitations,no edema, andno calf pain with exertion. For medications, patient reportstaking medications as directedandno side effects from medication.ROS as noted in the HPI 6+-MONTH FOLLOW-UP VISIT/SUBJECTIVE: Parvin presents for routine 6-month follow-up of hypertension and hyperlipidemia, among other chronic conditions Last routine follow-up office visit: 54Pti38Lnms labwork: 76Ukh17 Patient reports consistent use of medications, without side effects or intolerances. Current concerns:none Health maintenance:[facility]izations due[facility]neumococcal [facility] - 10yrfuWell-woman exam: hysterectomyMammography: 22Eva20UZKR: 42Yfo06 - osteopenia Hypertension On hydrochlorothiazide, losartan Consistent [...] as good options Vitamin D Deficiency- recheck level-Combat Systems Operator/Nursing note reviewed.- Casa Lowe MD Attn: Accounting,[address] [facility], [place], [address], [facility] 05/06/2024 13:18:19 4 text/html HyperlipidemiaReported by PatientHPIFor risk factors, patient reportshypertension. For current therapy, patient reportscurrently taking: (no medication)(total cholesterol 236hdl 77triglyceride 184ldl 128). For compliance, patient reportsexercises. Hypertension F/UReported by PatientHPIFor lifestyle, patient reportshigh salt intakebut reportsregular exercise. For associated symptoms, patient reportsno dizziness,no lightheadedness,no chest pain,no shortness of breath,no palpitations,no edema, andno calf pain with exertion. For medications, patient reportstaking medications as directedandno side effects from medication. Rash/Skin LesionReported by PatientHPIFor quality, patient reportsitchy,red, andmultiple. For context, patient reportsscratchingbut reportsno new detergents or skin productsandno one else with similar rash. For location, patient reportsback. For duration, patient reportshas noted for 2-3 months. For alleviating factors, patient reportsnothing gives relief. For associated symptoms, patient reportsno fever,no cold symptoms,no nausea,no vomiting,no diarrhea,no urinary symptoms,no chills,no fatigue, andno change in weight. For treatment history, patient reportsno history of treatment. For aggravating factors, (heat). DAO Whyte Attn: Accounting,[address] [facility], [place], [address], [facility] 11/04/2024 15:52:24 5 text/html MAW 2Reported by PatientSocial/Behavioral HistoryFor fracture risk, patient reportsno history of fracturesandno sudden unexplained fractures.Mental Status:For concentration and memory, patient reportsno decreased concentrating ability,no memory lapses or loss, anddoes not forget words. For speech/motor difficulties, patient reportsno speech difficulties,no difficulty expressing formulated concepts,no difficulty with fine manipulative tasks,no difficulty writing/copying,no slowed reaction time, anddoes not knock things over when trying to pick them up.Functional AbilityFor hearing, patient reportswears hearing aids. For activities of daily living, patient reportsable to bathe with limited or no assistance,able to contol urination and bowels,able to dress with limited or no assistance,able to feed self with limited or no assistance,able to get out of chair or bed with limited or no assistance,able to groom with limited or no assistance, andable to toilet with limited or no assistance. For instrumental activities of daily living, patient reportsable to do house work with limited or no assistance,able to grocery shop with limited or no assistance,able to manage medications with limited or no assistance,able to manage money with limited or no assistance,able to prepare meals with limited or no assistance, andable to use the phone with limited or no assistance. For falls risk assessment, patient reportsno frequent falls while walking,no fall since last visit,no dizziness/vertigo, andfall(s) in the past year 1. For home safety, patient reportsno unsafe marianna hazzards,no unsafe stairs,working smoke/co detectors,has hand bars in the bathroom/shower, andgood lighting in the home. DAO Whyte Attn: Accounting,[address] [place], [address], [facility] 05/25/2025 17:17:02 OBGyn Episode No OBEpisode recorded.
[2025-10-27 07:57] VITALS: BP 148/67; PULSE 78; RESP 18; TEMP 35.9; O2SAT 97
[2025-10-27] MEDS: LACTATED RINGERS 1,000 ML 150 ML IV CONT (08:07)
--- NOTE | 2025-10-27 08:27 | WPDANESEPPF ---
Anes - Initial Pre Proc Eval Procedure: Operation Date: 10/27/25 09:00 Proposed Procedures p Screening Colonoscopy - Woo Ashby DO Date/Time: 10/27/25 08:27 Surgeon: Woo Ashby DO Pre Op Diagnosis: Neoplasm screening Patient Data Age: 70 Gender: F Height: 1.57 m Weight: 95 kg Last Vital Signs Temp 96.6 F L 10/27/25 07:57 Pulse 78 10/27/25 07:57 Resp 18 10/27/25 07:57 BP 148/67 H 10/27/25 07:57 Pulse Ox 97 10/27/25 07:57 O2 Del Method Room Air 10/27/25 07:57 Allergies Allergy/AdvReac Type Severity Reaction Status Date / Time No Known Allergies Allergy Verified 10/27/25 07:56 Home Medications ?Medication ?Instructions ?Recorded ?Confirmed ?Type atorvastatin 10 mg tablet 10 mg PO DAILY 10/13/25 10/27/25 History losartan 50 mg-hydrochlorothiazide 1 tablet PO DAILY 10/13/25 10/27/25 History 12.5 mg tablet Patient hx anesthesia problems: none Family hx anesthesia problems: none Results Review: All pre-operative results and documents have been reviewed as part of the pre-operative evaluation. [facility] Social History Social History Smoking status: Never smoker Alcohol intake: never Substance use: never Substance use type: does not use Living arrangements: alone Spiritual care concerns: No Anes - Eval Final PreProcedure Day of Procedure 10/27/25 08:27 Patient weight: obese Lungs: normal air movement Airway: Mallampati scale class II Neurological: alert and oriented Last oral intake: >/= 8 hours ASA classification: III Emergent: no Anesthetic plan: proceed Anesthesia type and monitoring: general GIVS and standard monitoring Results Review: All pre-operative results and documents have been reviewed as part of the pre-operative evaluation. 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 Informed Consent: The patient's anesthetic plan and its attendant risks and benefits were discussed with the patient/family/POA. Questions were solicited and answers provided to the satisfaction of the patient/family/POA.
--- NOTE | 2025-10-27 08:57 | PM.IMHP2 ---
H&P: HPI History of Present Illness Date/Time: 10/27/25 08:57 Chief Complaint: Screening for colorectal cancer Narrative: This is a 70-year-old woman who presents for colonoscopy. Her last colonoscopy was 10 years ago and was normal. She denies any hematochezia or melena. She denies family history of colon cancer in any first-degree relatives. Review of Systems Review of Systems: All systems reviewed & are unremarkable except as noted in HPI and below Constitutional: Constitutional: Denies chills, Denies fever(s), Denies headache(s) and Denies weight loss Eyes: Eyes: Denies change in vision ENT: Denies dizziness, Denies headache(s), Denies neck mass and Denies throat swelling Cardiovascular: Cardiovascular: Denies chest pain, Denies lightheadedness and Denies dyspnea Respiratory: Respiratory: Denies cough, Denies dyspnea and Denies wheezing Gastrointestinal: Gastrointestinal: Denies abdominal pain, Denies change in bowel habits, Denies nausea and Denies vomiting Genitourinary: Genitourinary: Denies hematuria and Denies dysuria Musculoskeletal: Musculoskeletal: Reports as per HPI Integumentary/Breasts: Skin/Breast: Reports as per HPI Neurologic: Denies dizziness and Denies headache(s) Allergic/Immunologic: Allergic/Immunologic: Denies throat swelling and Denies wheezing PMFSH Social History Social History Smoking status: Never smoker Alcohol intake: never Substance use: never Substance use type: does not use Living arrangements: alone Spiritual care concerns: No Meds Home Medications and Allergies Home Medications ?Medication ?Instructions ?Recorded ?Confirmed ?Type atorvastatin 10 mg tablet 10 mg PO DAILY 10/13/25 10/27/25 History losartan 50 mg-hydrochlorothiazide 1 tablet PO DAILY 10/13/25 10/27/25 History 12.5 mg tablet Allergies Allergy/AdvReac Type Severity Reaction Status Date / Time No Known Allergies Allergy Verified 10/27/25 07:56 Vital Signs Vital Signs - 24 hr 10/27/25 07:57 Temperature 96.6 F L Pulse Rate 78 Respiratory Rate 18 Blood Pressure 148/67 H Pulse Oximetry 97 Oxygen Delivery Room Air Exam Const: General: no acute distress and alert Orientation/consciousness: patient oriented x3 HENMT: Head: normocephalic and atraumatic Ears: hearing grossly normal bilaterally Face/Nose/Sinus: Normal nares present Mouth: Yes Normal oral and palatal mucosa present Eyes: Periorbital: periorbital findings normal Sclera: sclerae normal EOM: EOMs intact bilaterally Neck: Neck: normal visual inspection, no lymphadenopathy and trachea midline Chest: Chest palpation & inspection: normal inspection of the chest Resp: Effort & Inspection: normal respiratory effort Auscultation: clear to auscultation bilaterally Cardio: Jugular venous distension: no JVD Rate: regular rate Rhythm: regular rhythm Heart sounds: S1 normal heart sound present and S2 normal heart sound present Peripheral pulses: Peripheral pulses 2+ throughout GI: Inspection: normal to inspection GI Palp: Yes Soft to palpation, No Tenderness to palpation present (GI), No Guarding due to palpation present (GI) and No Rebound tenderness present Percussion: Yes normal to percussion Auscultation: normal bowel sounds : General: Yes no CVA tenderness Back/Spine/Pelvis: Back: no CVA tenderness Neuro: General: patient oriented x3, no focal motor deficits and CN's II-XI intact bilaterally Cognition (Neuro): normal cognition Speech: normal speech Motor exam (neuro): 5/5 motor strength present throughout Extrem: General: capillary refill normal and no clubbing, cyanosis or edema Assessment and Plan Assessment and plan (1) Screening for colorectal cancer: Code(s): Z12.11 - Encounter for screening for malignant neoplasm of colon; Z12.12 - Encounter for screening for malignant neoplasm of rectum Status: Acute Assessment and Plan: I have recommended colonoscopy. I have discussed the procedure, risks, benefits, and alternatives. Questions were answered. Patient is agreeable to proceed.
[2025-10-27 09:23] VITALS: BP 118/58; PULSE 84; RESP 19; O2SAT 97
[2025-10-27 09:33] VITALS: BP 111/55; PULSE 75; RESP 19; O2SAT 100
[2025-10-27 09:43] VITALS: BP 119/70; PULSE 66; RESP 20; O2SAT 100
== END 2025-10-27 09:56 | disposition home or self-care (01) ==
PROVIDERS: PCP Emergency Medicine; Visit Provider Surgery
PROC: 0DJD8ZZ Inspection of Lower Intestinal Tract, Via Natural or Artificial Opening Endoscopic (ICD-10-PCS; CPT 45378; principal; 2025-10-27 09:00)
DX: Z12.11 Encounter for screening for malignant neoplasm of colon (principal); E66.9 Obesity, unspecified; Z68.38 Body mass index [BMI] 38.0-38.9, adult
CPT/HCPCS: G0121; J2003; J2704; J7120